=== PATIENT | female | born 1950 | race Caucasian/White ===

== ENCOUNTER → 2017-04-15 14:27 | Outpatient (CLI) | payer MEDICARE, SELFPAY ==
[2017-04-15 16:38] LABS: BNP,B-Type NATRIURETIC PEPTIDE 27.7 pg/mL (0-100)
== END ==
PROVIDERS: Family Provider Internal Medicine; PCP Internal Medicine; Visit Provider Internal Medicine Critical Care Medicine
DX: R06.00 Dyspnea, unspecified (principal); R06.02 Shortness of breath
CPT/HCPCS: 36415; 83880

== ENCOUNTER → 2017-05-15 12:50 | Outpatient (CLI) | payer MEDICARE, SELFPAY ==
--- NOTE | 2017-05-15 14:00 | ECHOCS_ITS ---
Reason For Study: DYSPNEA Procedure This was a 2D Doppler, Color Flow transthoracic echocardiogram. The exam was of fair technical quality due to body habitus. Exam performed in department. Left Ventricle Normal size and thickness. The estimated ejection fraction is 65 %. Stage 1 diastolic dysfunction. No regional wall motion abnormalities noted. Right Ventricle Normal size and thickness. Normal systolic function. Atria Normal left atrium. Normal right atrium. Normal atrial septum. Mitral Valve The mitral valve is structurally normal. No prolapse or stenosis seen. Trivial mitral valve insufficiency. Tricuspid Valve Normal tricuspid valve. Trivial tricuspid valve insufficiency. Right ventricular systolic pressure estimated to be 45 mmHg. Mild pulmonary hypertension. Aortic Valve Normal aortic valve. Trisinus/trileaflet aortic valve. Pulmonic Valve Normal pulmonic valve. Great Vessels Normal aortic root. Normal arch. Normal inferior vena cava. Inferior vena cava collapse with sniff. Pericardium/Pleural No pericardial effusion. MMode/2D Measurements & Calculations LVIDd: 4.6 cm IVSd: 0.78 cm Ao root diam: 2.5 cm LVIDs: 3.2 cm LVPWd: 0.83 cm LA dimension: 3.9 cm RVDd: 2.4 cm FS: 30.1 % LAV(MOD-bp): 37.9 ml EDV(MOD-sp4): 95.6 ml EDV(MOD-sp2): 86.3 ml LAV(MOD-bp) Indexed: 19.2 ml/m2 ESV(MOD-sp4): 42.0 ml EF(MOD-sp2): 53.6 % LAV(MOD-sp2): 45.1 ml EF(MOD-sp4): 56.1 % LAV(MOD-sp4): 29.9 ml SV(MOD-sp4): 53.6 ml SV(MOD-sp2): 46.3 ml LA A4 area: 12.2 cm2 RA A4 area: 6.7 cm2 Doppler Measurements & Calculations MV E max estuardo: 55.3 cm/sec Ao V2 max: 142.2 cm/sec LV V1 max: 101.3 cm/sec MV A max estuardo: 80.1 cm/sec Ao max P.1 mmHg LV V1 max P.1 mmHg MV E/A: 0.69 PA V2 max: 132.0 cm/sec TR max estuardo: 307.2 cm/sec TR max P.8 mmHg Interpretation Summary The estimated ejection fraction is 65 %. Stage 1 diastolic dysfunction. Trivial mitral valve insufficiency. Trivial tricuspid valve insufficiency. Right ventricular systolic pressure estimated to be 45 mmHg. Mild pulmonary hypertension. Compared to echo report dated 01/26/2014, no appreciable changes noted. Ordering Physician: Kareem Mcgregor Referring Physician: ALVARO WEBB Performed By: Ila Amezquita, RDCS, RVT
--- NOTE | 2017-05-16 13:24 | PFT ---
INTRODUCTION: The patient is a 67-year-old female currently under the care of Dr. Mcgregor the presents for pulmonary function testing secondary to a diagnosis of shortness of breath. Respiratory therapy reports good patient effort and reports no other concerns. Bronchodilators were used during testing. INTERPRETATION: Forced expiration spirometry demonstrates the presence of a mild large airways obstructive ventilatory defect. There was no significant response to aerosolized bronchodilators, based upon strict ATS criteria. Spirogram is or of good quality and do not plateau indicating slow emptying of the lungs. Body plethysmography was performed and reveals lung volumes to be within normal limits. Diffusing capacity by single breath CO is severely reduced at 32% of predicted. When compared to previous pulmonary function studies dated September 2015 there has been a 9% reduction in the patient's DLCO. IMPRESSION: These pulmonary function studies demonstrate the presence of any reversible mild large airways obstructive ventilatory defect with an associated disproportionate reduction in diffusing capacity. There has been a 9% reduction in the patient's DLCO since PFTs were last completed in 2015.
== END ==
PROVIDERS: Family Provider Internal Medicine; PCP Internal Medicine; Visit Provider Internal Medicine Critical Care Medicine
DX: R06.00 Dyspnea, unspecified (principal); R06.02 Shortness of breath
CPT/HCPCS: 93306; 94060; 94726; 94729

== ENCOUNTER → 2017-05-17 04:00 | Outpatient (REF) | payer MEDICARE, SELFPAY | LOC: OLS.WHLTSB 04:00 | PROVIDERS: Visit Provider Internal Medicine | DX: R30.9 Painful micturition, unspecified (principal) | CPT/HCPCS: 87077; 87086; 87088; 87186 ==

== ENCOUNTER → 2017-06-03 07:50 | Outpatient (REF) | payer MEDICARE, SELFPAY ==
[2017-06-04 08:03] LABS: Color, Urine Yellow (Yellow); Glucose, Dipstick Normal (Normal); Ketone-Dipstick Negative (Negative); Leukocyte Esterase-Dipstick Negative /ul (Negative); Nitrite-Dipstick Negative (Negative); Occult Blood-Urine Negative /ul (Negative); Protein-Dipstick Negative (Negative); Urine Bilirubin Dipstick Negative (Negative); Urine Clarity Clear (Clear); Urine Urobilinogen Normal (Normal); Urine pH 6.5 (5.0 - 8.0)
== END ==
LOC: OLS.WHLTSB 07:50
PROVIDERS: Visit Provider Internal Medicine
DX: Z09 Encounter for follow-up examination after completed treatment for conditions other than malignant neoplasm (principal)
CPT/HCPCS: 81002; 87077; 87086; 87088; 87186

== ENCOUNTER → 2017-08-01 20:00 | Outpatient (REF) | payer MEDICARE, SELFPAY | LOC: OLS.WHLTSB 20:00 | PROVIDERS: Visit Provider Internal Medicine | DX: Z12.11 Encounter for screening for malignant neoplasm of colon (principal) | CPT/HCPCS: 82274 ==

== ENCOUNTER → 2017-08-05 05:00 | Outpatient (REF) | payer MEDICARE, SELFPAY ==
[2017-08-05 09:42] LABS: Hematocrit 44.7 % (37-47); Hemoglobin 14.6 g/dl (12.0-15.0); Mean Corp Hgb Conc 32.7 g/gl (32-36); Mean Corpuscular Hgb 29.7 pg (27.0-32.0); Mean Corpuscular Volume 90.9 fL (81-99); Mean Platelet Vol. 10.5 fl (6.2-12.0); Platelet Count 196 K/mm3 (150-450); RBC Distribution Width SD 46.3 fl (35.1-43.9); Red Blood Count 4.92 M/mm3 (4.2-5.4); White Blood Count 3.4 K/mm3 (4.4-11.0)
[2017-08-05 09:45] LABS: Scan Indicated on CBC? Y/N NO
[2017-08-05 10:01] LABS: Anion Gap 8 (5-15); BUN 11 mg/dL (7-18); BUN/Creat Ratio 11.4 RATIO (10-20); Chloride 104 mmol/L (98-107); Cholesterol 152 mg/dL (200); Creatinine, Serum 0.96 mg/dL (0.55-1.02); EST Glomerular Filtration Rate 62 mL/min (>60); Est Glom Filt Rate - Afr Amer 74 mL/min (>60); Glucose 136 mg/dL (74-106); High Density Lipoprotein 34 mg/dL; Sodium Level 140 mmol/L (136-145); Triglycerides 159 mg/dL; Very Low Density Lipoprotein 32 mg/dL (5-40)
[2017-08-05 10:05] LABS: Hemoglobin A1c 6.5 % (4.2-6.3)
[2017-08-06 04:12] LABS: Hepatitis C Ab <0.1 s/co ratio (0.0-0.9)
== END ==
LOC: OLS.WHLTSB 05:00
PROVIDERS: Visit Provider Internal Medicine
DX: I10 Essential (primary) hypertension (principal); E78.5 Hyperlipidemia, unspecified; N39.0 Urinary tract infection, site not specified; Z79.899 Other long term (current) drug therapy
CPT/HCPCS: 36415; 80048; 80061; 83036; 85027; 86803; 86804

== ENCOUNTER → 2017-08-05 18:00 | Outpatient (REF) | payer MEDICARE, SELFPAY | LOC: OLS.WHLTSB 18:00 | PROVIDERS: Visit Provider Internal Medicine | DX: N39.0 Urinary tract infection, site not specified (principal) | CPT/HCPCS: 87086 ==

== ENCOUNTER → 2017-10-10 13:33 | Outpatient (CLI) | payer MEDICARE, SELFPAY ==
--- NOTE | 2017-10-10 13:37 | BI_ITS ---
MAMMOGRAPHY - BILATERAL SCREENING 3-D ZOFIA SYNTHESIS REASON FOR EXAM: Female, 67 years old. Bilateral Screening 3-D tomosynthesis PERTINENT HISTORY: No significant family history. TECHNIQUE: 2-D mammograms and 3-D Zofia synthesis of the breast (s) were performed. CAD was performed. COMPARISON: 09/10/2016 FINDINGS: The breast composition is almost entirely fat. Scattered benign calcifications are seen. No dense spiculated masses or suspicious microcalcifications are identified. No architectural distortion is identified. There is no skin thickening or retraction. There has been no significant change since the prior study. BI/SCREENING MAMM (CAD), BILAT IMPRESSION: No mammographic signs of malignancy. Routine yearly mammograms recommended. ASSESSMENT CATEGORY: BIRADS Category 1: Negative. A letter regarding these results will be sent to the patient by the facility within 30 days. FOLLOW UP RECOMMENDATION: Yearly follow up mammogram recommended. (A) Approximately 10% of breast cancers are not detected by mammography. A normal mammogram should not delay biopsy of a clinically suspicious abnormality. Electronically Signed: Henry Floyd MD at 7:46 EDT , Service support ,
--- NOTE | 2017-10-10 14:20 | BD_ITS ---
STUDY: DUAL ENERGY X-RAY ABSORPTIOMETRY / DXA REASON FOR EXAM: Female, 67 years old. Postmenopausal screening TECHNIQUE: Bone Mineral Density (BMD) measurements of lumbar spine and bilateral hips were obtained. COMPARISON: None. FINDINGS: Lumbar Spine (L1-L4): g/cm2 (1.078) / T-score (-0.9) / Z-score (0.8) Findings are suggestive of normal bone density with a low fracture risk. Left Femur Total: g/cm2 (0.919) / T-score (-0.7) / Z-score (0.6) Left Femoral Neck: g/cm2 (0.788) / T-score (-1.8) / Z-score (-0.3) Right Femur Total: g/cm2 (0.929) / T-score (-0.6) / Z-score (0.7) Right Femoral Neck: g/cm2 (0.777) / T-score (-1.9) / Z-score (-0.3) BD/Dexa Bone Density Study IMPRESSION: The patient is considered normal as outlined below according to World Gonz[employer] Organization (WHO) criteria with a low fracture risk. Reference Information: The T-score is the number of standard deviations above or below the standard which is normal for young adults at their peak bone mineral density. The World Health Organization (WHO) interprets the T-scores as follows: Above -1 Normal bone density Between -1 and -2.5 Osteopenia Equal to / or below -2.5 Osteoporosis As a practical clinical guideline, osteopenia may be graded as follows: Mild -1 through -1.5 Moderate -1.6 through -2.0 Severe -2.1 through -2.4 The Z-score is the number of standard deviations above or below age-matched controls. A Z-score of less than -1.5 would be considered abnormal. References: 1. NIH Osteoporosis and Related Bone Diseases http://www.osteo.org 2. International Society for Clinical Densitometry http://www.iscd.org 3. National Osteoporosis Foundation http://www.nof.org Electronically Signed: Henry Floyd MD at 9:30 EDT , Service support ,
== END ==
PROVIDERS: Family Provider Internal Medicine; PCP Internal Medicine; Visit Provider Obstetrics & Gynecology
DX: Z12.31 Encounter for screening mammogram for malignant neoplasm of breast (principal); Z78.0 Asymptomatic menopausal state; R89.1 Abnormal level of hormones in specimens from other organs, systems and tissues
CPT/HCPCS: 77063; 77067; 77080

== ENCOUNTER → 2018-07-01 10:36 | Outpatient (CLI) | payer MEDICARE, SELFPAY ==
[2018-04-30 12:57] VITALS: BMI 45.8
[2018-07-01 13:11] VITALS: PULSE 104; PULSE 105; PULSE 106; PULSE 108; PULSE 109; PULSE 111; PULSE 79; PULSE 93; O2SAT 91; O2SAT 92; O2SAT 93; O2SAT 94
--- NOTE | 2018-07-01 13:15 | CPS ---
Mrs Salas started to walk the stopped to rest at 30 sec until 45 secs then again at 1 min to 2 mins then again at 230 to 245 then again at 250 to 3 mins again at 330 to 340 then again at 430 to 440 and then sat down at 5 mins to 530 and then finished walking till 6 mins.
--- NOTE | 2018-07-01 16:14 | PCM.PSN.6M ---
PSN 6 Minute Walk Test - 6 Minute Walk Test 6 Minute Walk Test: 6 Minute Walk Test PSN:6-Minute Walk Test Start: 07/01/18 11:11 Freq: Status: Active Protocol: RESP.6MINW Document 07/01/18 13:11 FR (Rec: 07/01/18 13:19 FR [id number]) 6 Minute Walk Test Date Performed 07/01/18 Time Performed 11:00 Height 5 ft 4 in Weight: 93.44 kg Weight in Pounds 206.[address]: Noy Springer Assistive device used: None Pre-test Oxygen Delivery Method Room Air Pulse Ox (%) 94 Pulse Rate (60-100 beats/min) 79 Dyspnea Denia Scale (0-10) 0 Exertion Denia Scale (6-20) 6 1st minute Oxygen Delivery Method Room Air Pulse Ox (%) 92 Pulse Rate (60-100 beats/min) 105 H Number of Rests Taken 1 2nd minute Oxygen Delivery Method Room Air Pulse Ox (%) 91 Pulse Rate (60-100 beats/min) 104 H Number of Rests Taken 2 Reported Symptoms Increased Work of Breathing 3rd minute Oxygen Delivery Method Room Air Pulse Ox (%) 93 Pulse Rate (60-100 beats/min) 106 H Number of Rests Taken 1 4th minute Oxygen Delivery Method Room Air Pulse Ox (%) 92 Pulse Rate (60-100 beats/min) 108 H Number of Rests Taken 1 5th minute Oxygen Delivery Method Room Air Pulse Ox (%) 93 Pulse Rate (60-100 beats/min) 111 H Number of Rests Taken 1 Reported Symptoms Increased Work of Breathing 6th minute Oxygen Delivery Method Room Air Pulse Ox (%) 92 Pulse Rate (60-100 beats/min) 109 H Dyspnea Denia Scale (0-10) 10 Exertion Denia Scale (6-20) 20 Post-test Oxygen Delivery Method Room Air Pulse Ox (%) 92 Pulse Rate (60-100 beats/min) 93 Full Laps Walked 2 Partial Lap, Number of Tiles Walked 13 Total Distance Walked (ft) 131 07/01/18 13:15 Cardiopulmonary Services by Fernanda Brand Mrs Salas started to walk the stopped to rest at 30 sec until 45 secs then again at 1 min to 2 mins then again at 230 to 245 then again at 250 to 3 mins again at 330 to 340 then again at 430 to 440 and then sat down at 5 mins to 530 and then finished walking till 6 mins. Initialized on 07/01/18 13:15 - END OF NOTE - Interpretation Interpretation: The patient was able to ambulate only 131 feet over the course of 6 minutes on room air with no assistive devices or breaks. The patient did have significant desaturation as low as 91% and a peak heart rate of 111 bpm. These findings are consistent with a respiratory limitation exercise tolerance. - Recommendations Recommendations: No supplemental oxygen is indicated by this test. However, sensitivity is severely limited given minimal distance traveled.
== END ==
PROVIDERS: Family Provider Internal Medicine; PCP Internal Medicine; Referring Provider Nurse Practitioner Acute Care; Visit Provider Nurse Practitioner Acute Care
DX: J44.9 Chronic obstructive pulmonary disease, unspecified (principal)
CPT/HCPCS: 94618

== ENCOUNTER → 2018-07-15 12:42 | Outpatient (CLI) | payer MEDICARE, SELFPAY ==
[2018-04-30 12:57] VITALS: BMI 45.8
--- NOTE | 2018-07-15 14:56 | PFTCOMP ---
COMPLETE PULMONARY FUNCTION TEST INTERPRETATION Brief HPI: Patient is a 68 year old female, currently under the care of myself, who presents to [facility] for complete pulmonary function tests secondary to diagnosis of COPD. Respiratory therapist reports good effort and reproducible results. Interpretation: Forced expiration spirometry shows a mild large airways obstructive ventilatory defect with an FEV1 of 84% predicted. There is no significant bronchodilator response by strict ATS criteria. Spirograms are of good quality and plateau slowly, indicating slowly emptying areas of the lungs. The respiratory flow volume loop shows decreased expiratory flow rates at all lung volumes consistent with airway obstruction. Lung volumes by body plethysmography show a normal total lung capacity at 4.28 L, 92% predicted. All other lung volumes are within normal limits. Diffusion capacity by carbon monoxide is decreased at 42% predicted. The airway resistance is normal. Compared to previous pulmonary function tests from 05/15/2017, there is been a significant improvement in DLCO by 27%. Impression: Irreversible mild large airways obstructive ventilatory defect with a reduction diffusion capacity that is out of proportion to obstruction. There has been some improvement compared to previous.
== END ==
PROVIDERS: Family Provider Internal Medicine; PCP Internal Medicine; Referring Provider Nurse Practitioner Acute Care; Visit Provider Nurse Practitioner Acute Care
DX: J44.9 Chronic obstructive pulmonary disease, unspecified (principal)
CPT/HCPCS: 94060; 94726; 94729

== ENCOUNTER → 2018-07-18 13:40 | Outpatient (CLI) | payer MEDICARE, SELFPAY ==
[2018-07-18 12:42] VITALS: BMI 45.8
[2018-07-18 15:11] LABS: BNP,B-Type NATRIURETIC PEPTIDE 16.4 pg/mL (0-100)
[2018-07-18 15:30] LABS: Anion Gap 11 (5-15); BUN 12 mg/dL (7-18); BUN/Creat Ratio 10.7 RATIO (10-20); Calcium,Total 9.2 mg/dL (8.5-10.1); Chloride 100 mmol/L (98-107); Creatinine, Serum 1.12 mg/dL (0.55-1.02); EST Glomerular Filtration Rate 52 mL/min (>60); Est Glom Filt Rate - Afr Amer 62 mL/min (>60); Glucose 493 mg/dL (74-106); Potassium 4.3 mmol/L (3.5-5.1); Sodium Level 132 mmol/L (136-145)
== END ==
PROVIDERS: Family Provider Internal Medicine; PCP Internal Medicine; Referring Provider Nurse Practitioner Acute Care; Visit Provider Nurse Practitioner Acute Care
DX: I27.20 Pulmonary hypertension, unspecified (principal); R06.00 Dyspnea, unspecified
CPT/HCPCS: 36415; 80048; 83880

== ENCOUNTER → 2019-08-21 12:04 | Outpatient (CLI) | payer MEDICARE, MEDICAID, SELFPAY ==
[2019-03-04 06:28] VITALS: BMI 37.9
[2019-08-21 13:27] VITALS: PULSE 100; PULSE 101; PULSE 103; PULSE 104; PULSE 105; PULSE 77; PULSE 79; O2SAT 91; O2SAT 92; O2SAT 93; O2SAT 94
--- NOTE | 2019-08-24 07:43 | PCM.PSN.6M ---
PSN 6 Minute Walk Test - 6 Minute Walk Test 6 Minute Walk Test: 6 Minute Walk Test PSN:6-Minute Walk Test Start: 08/21/19 13:27 Freq: Status: Active Protocol: RESP.6MINW Document 08/21/19 13:27 KATHY (Rec: 08/21/19 13:29 KATHY [id number]) 6 Minute Walk Test Date Performed 08/21/19 Time Performed 12:30 Height 5 ft 1 in Weight: 200 lb Weight in Pounds 200.[address]: Kareem Mcgregor Assistive device used: None Pre-test Oxygen Delivery Method Room Air Pulse Ox (%) 93 Pulse Rate (60-100 beats/min) 79 Dyspnea Denia Scale (0-10) 0.5 Exertion Denia Scale (6-20) 6 1st minute Oxygen Delivery Method Room Air Pulse Ox (%) 93 Pulse Rate (60-100 beats/min) 100 Number of Rests Taken 1 2nd minute Oxygen Delivery Method Room Air Pulse Ox (%) 93 Pulse Rate (60-100 beats/min) 101 H Number of Rests Taken 1 3rd minute Oxygen Delivery Method Room Air Pulse Ox (%) 92 Pulse Rate (60-100 beats/min) 103 H Number of Rests Taken 1 4th minute Oxygen Delivery Method Room Air Pulse Ox (%) 91 Pulse Rate (60-100 beats/min) 105 H Number of Rests Taken 1 5th minute Oxygen Delivery Method Room Air Pulse Ox (%) 92 Pulse Rate (60-100 beats/min) 104 H 6th minute Oxygen Delivery Method Room Air Pulse Ox (%) 91 Pulse Rate (60-100 beats/min) 105 H Dyspnea Denia Scale (0-10) 5 Exertion Denia Scale (6-20) 14 Post-test Oxygen Delivery Method Room Air Pulse Ox (%) 94 Pulse Rate (60-100 beats/min) 77 Full Laps Walked 5 Partial Lap, Number of Tiles Walked 13 Total Distance Walked (ft) 308 - Interpretation Interpretation: The patient ambulated 308 feet over the course of 6 minutes beginning on room air without assistive devices or breaks. Pretesting oxygen saturation was noted to be 93% on room air. With ambulation, the leo oxygen saturation was 91%. Although there was evidence of impaired walk distance, there was no significant exertional oxygen desaturation. - Recommendations Recommendations: There is no indication for the use of supplemental oxygen at this time.
== END ==
PROVIDERS: Family Provider Internal Medicine; PCP Internal Medicine; Referring Provider Internal Medicine Critical Care Medicine; Visit Provider Internal Medicine Critical Care Medicine
DX: I27.20 Pulmonary hypertension, unspecified (principal); E66.01 Morbid (severe) obesity due to excess calories
CPT/HCPCS: 94618

== ENCOUNTER → 2019-11-05 12:19 | Outpatient (CLI) | payer MEDICARE, SELFPAY ==
[2019-09-01 12:43] VITALS: BMI 43.0
--- NOTE | 2019-11-05 12:20 | BI_ITS ---
MAMMOGRAPHY - BILATERAL SCREENING 3-D TOMOSYNTHESIS REASON FOR EXAM: Female, 69 years old. Annual screening mammogram. PERTINENT HISTORY: No significant family history. TECHNIQUE: 2-D mammograms and 3-D Tomosynthesis of the breast (s) were performed. CAD was performed. COMPARISON: 10/10/2017 and 09/10/2016 FINDINGS: The breast composition is almost entirely fat. Scattered benign calcifications are seen. No dense spiculated masses or suspicious microcalcifications are identified. No architectural distortion is identified. There is no skin thickening or retraction. There has been no significant change since the prior study. BI/SCREEN MAMM (CAD) W/ZOFIA BILAT IMPRESSION: No mammographic signs of malignancy. Routine yearly mammograms recommended. ASSESSMENT CATEGORY: BIRADS Category 2: Benign. A letter regarding these results will be sent to the patient by the facility within 30 days. FOLLOW UP RECOMMENDATION: Yearly follow up mammogram recommended. (A) Approximately 10% of breast cancers are not detected by mammography. A normal mammogram should not delay biopsy of a clinically suspicious abnormality. Electronically Signed: Sean Wilson MD at 17:42 EDT , Service support ,
== END ==
PROVIDERS: PCP Internal Medicine; Referring Provider Nurse Practitioner Women's Health; Visit Provider Nurse Practitioner Women's Health
DX: Z12.31 Encounter for screening mammogram for malignant neoplasm of breast (principal)
CPT/HCPCS: 77063; 77067

== ENCOUNTER 2020-01-22 07:57 | Day surgery (SDC) | payer MEDICARE, MEDICAID, SELFPAY ==
[2020-01-05 13:57] VITALS: BMI 42.9
[2020-01-22 08:16] VITALS: BP 150/83; PULSE 76; RESP 16; TEMP 36.2; O2SAT 93; BMI 42.3
[2020-01-22] MEDS: Lactated Ringers 1,000 ML 100 ML IV (08:30)
[2020-01-22 09:16] LABS: Bedside Glucose 129 mg/dL (70-110)
--- NOTE | 2020-01-22 09:26 | PCM.HP.BLA ---
Problem List (1) Screening for malignant neoplasm of intestine Status: Acute History and Physical Date of Admission: 01/22/20 Intake Visit Reasons: C-Scope Chief Complaint: c-scope consult Clip On Sunglasses Assembler Required: No Is patient in pain?: No Allergies adhesive tape Allergy (Mild, Verified 01/05/20 13:58) Rash Iodinated Contrast Media [Iodinated Contrast Media - IV Dye] Allergy (Verified 01/05/20 13:58) Hives latex Allergy (Verified 01/05/20 13:58) Itching Sulfa (Sulfonamide Antibiotics) Allergy (Verified 01/05/20 13:58) Hives Medications Atorvastatin Calcium [Lipitor] 10 mg PO DAILY 03/09/15 [History Confirmed 01/05/20] Bupropion HCl [Wellbutrin Sr] 200 mg PO DAILY 03/09/15 [History Confirmed 01/05/20] Losartan Potassium [Cozaar] 50 mg PO DAILY 03/09/15 [History Confirmed 01/05/20] Oxybutynin Chloride [Ditropan Xl] 15 mg PO DAILY 03/09/15 [History Confirmed 01/05/20] Risperidone [Risperdal] 0.25 mg PO TID 03/09/15 [History Confirmed 01/05/20] Omeprazole [Prilosec] 20 mg PO DAILY 10/27/15 [History Confirmed 01/05/20] chlorhexidine gluconate 0.12 % mouthwash 15 ml BUCCAL BID 04/05/17 [History Confirmed 01/05/20] fluticasone propionate 50 mcg/actuation nasal spray,suspension 2 spray INTRANASAL QDAY PRN 04/05/17 [History Confirmed 01/05/20] umeclidinium 62.5 mcg-vilanterol 25 mcg/actuation powdr for inhalation 1 inh INHALATION Q24H #60 ea 04/30/18 [Rx Confirmed 01/05/20] acetaminophen 325 mg tablet 325 mg PO Q6H PRN 08/12/18 [History Confirmed 01/05/20] albuterol sulfate 90 mcg/actuation aerosol inhaler 1 puff INHALATION Q6H PRN 08/12/18 [History Confirmed 01/05/20] bisacodyl 10 mg rectal suppository 10 mg RC DAILY PRN 08/12/18 [History Confirmed 01/05/20] calcium carbonate 200 mg calcium (500 mg) chewable tablet 200 mg PO BID tab 08/12/18 [History Confirmed 01/05/20] ondansetron HCl 4 mg tablet 4 mg PO BID-TID PRN 08/12/18 [History Confirmed 01/05/20] polyethylene glycol 3350 17 gram/dose oral powder 17 g PO DAILY 08/12/18 [History Confirmed 01/05/20] terconazole 0.4 % vaginal cream 1 appful VAGINAL QHS 08/12/18 [History Confirmed 01/05/20] triamcinolone acetonide 0.5 % topical cream 1 applic TOPICAL BID #15 g 08/12/18 [Rx Confirmed 01/05/20] calcium carbonate 200 mg calcium (500 mg) chewable tablet 200 mg PO BID 11/05/19 [History Confirmed 01/05/20] clotrimazole-betamethasone 1 %-0.05 % topical cream 1 applic TOPICAL BID 14 Days #45 g 11/05/19 [Rx Confirmed 01/05/20] diphenhydramine HCl 12.5 mg/5 mL oral elixir 12.5 mg PO QHS PRN 11/05/19 [History Confirmed 01/05/20] loperamide 2 mg capsule 2 mg PO Q6H PRN 11/05/19 [History Confirmed 01/05/20] melatonin 10 mg capsule 10 mg PO HS PRN 11/05/19 [History Confirmed 01/05/20] sodium chloride 0.65 % nasal spray aerosol 1 spray INTRANASAL ONCE 11/05/19 [History Confirmed 01/05/20] cetirizine 10 mg tablet 10 mg PO DAILY PRN tab 01/05/20 [History Confirmed 01/05/20] clonazepam 2 mg tablet 2 mg PO QHS tab 01/05/20 [History Confirmed 01/05/20] metformin 500 mg tablet 1,000 mg PO BID tab 01/05/20 [History Confirmed 01/05/20] sennosides 8.6 mg-docusate sodium 50 mg tablet 1 tab-cap PO DAILY tab 01/05/20 [History] [facility] Medical History (Updated 01/05/20 @ 14:[address] Paul Valdez MD) Screening for malignant neoplasm of intestine (Acute) Mast esophagus (Chronic) Pulmonary hypertension (Chronic) Hypoxemia (Acute) ANNIE (obstructive sleep apnea) (Chronic) Obesity (Chronic) Dyspnea (Acute) SOB (shortness of breath) (Chronic) Mitral stenosis with insufficiency (Chronic) Tricuspid valve disorder (Chronic) Sinusitis (Acute) Depression (Chronic) Diverticulitis (Acute) HTN (hypertension) (Chronic) COPD (chronic obstructive pulmonary disease) (Chronic) Surgical History (Updated 01/05/20 @ 13:57 by Nadia Wu) History of left heart catheterization (Resolved) History of cholecystectomy (Acute) History of lumbar laminectomy (Acute) Family History Father Diabetes Mother Heart disease Diabetes Social History (Updated 01/05/20 @ 14:[address] Paul Valdez MD) Smoking Status: Former smoker how long ago did patient quit smokin second hand exposure: Yes alcohol intake: never substance use type: does not use HPI HPI HPI: DICKSON DONALD, is a 69 F who presents to the office today for surgical consultation regarding a screening colonoscopy. The patient has short-term memory deficit. She is not aware that she has had a previous colonoscopy. We have evidence that Dr. Sarbjit Jo performed an upper endoscopy for her November 2000. We do not have evidence of a previous colonoscopy. She has not noticed any bright red blood per rectum or melena. No abdominal pain. She does live in a detention because of the memory deficit. There is been no change of weight. Body habitus is large with a body weight of 242 pounds and a BMI of 42.9. She does take omeprazole 20 mg daily. I do not see that she is on any anticoagulants. She does not recall any family history of colon cancer. There is evidence at the [facility] October 27, [address] of the abdomen pelvis suggesting small hiatal hernia wall thickening of the sigmoid colon consistent with diverticulitis. There is some report of some chronic constipation issues HPI HPI HPI: DICKSON DONALD, is a 69 F who presents to the office today for ROS General General: Yes weight change and fatigue; no appetite, colon cancer, breast cancer or weakness HEENT HEENT: No difficulty swallowing, eye injury, eye surgery, swollen glands or hoarseness Endo Endocrine: Yes diabetes mellitus; no thyroid disease, thyroid cancer, Hair loss, heat intolerance or cold intolerance Skin Skin: No rash or changing moles Breast Breast: No left breast lump, right breast lump, nipple discharge, breast pain, abnormal mammogram, abnormal US or breast enlargement Musc Musculoskeletal: No back problems, arthritis, rheumatoid arthritis, gout or joint pain Cardio Cardiovascular: No murmur, pacemaker, heart disease, atrial fibrillation, high blood pressure, heart attack, heart stent, palpitations, shortness of breat with exertion or chest pain Psych Psychiatric: Yes anxiety; no depression or hearing voices Resp Respiratory: Yes shortness of breath, No sleep apnea, No cough, Yes COPD, No asthma, No emphysema, No wheezing Gastro Gastrointestinal: No abdominal pain, Yes nausea or vomiting, No diarrhea, Yes constipation, No blood in stool, Yes acid reflux, No hemorrhoids, No ulcers, No gallbladder problem, No black,tarry stools Ganga Hematologic: No blood thinners, No blood disorders, No bleeding, No anemia, No blood clots Neuro Neurologic: No system reviewed and no additional complaints, except as docu, No as per HPI, No abnormal walking, No abnormal hearing, No abnormal movements, No abnormal speech, No behavioral changes, No burning sensations, No confusion, No seizure-like activity, No unsteadiness, No dizziness, No localized weakness, No frequent falls, No headache(s), No lack of coordination, No loss of vision, No memory loss, No numbness, No other visual disturbances, No radiating pain, No restless legs, No sensory deficit, No fainting, No tingling, No tremor(s), No weakness, No other Exam Const General: cooperative, no acute distress Nutritional Appearance: obese morbidly obese Orientation: alert, awake HENIA Head: normal to inspection Chest Breast Palpation: No nipple discharge Resp Effort & Inspection: normal respiratory effort Auscultation: clear to auscultation bilaterally Cardio Rate: regular rate Rhythm: regular rhythm Heart Sounds: no murmurs GI Palpation: soft, no hepatosplenomegaly Auscultation: normal bowel sounds Neuro General: alert, awake Extrem General: no calf tenderness Psych Affect: normal affect Assessment & Plan Problems 1. Screening for malignant neoplasm of intestine Z12.10 Plan The patient's short-term memory deficit provides some difficulty in obtaining history. The detention referral clearly suggest this is for screening colonoscopy. I discussed with the patient the technique, benefit, risk, alternatives. She has had an opportunity to ask and have questions answered. We will schedule her for screening colonoscopy. I anticipate utilizing an adult scope. I anticipate utilizing monitored anesthesia care. We will schedule procedure at her discretion Copy: Dr. Allison Valdez M.D., F.A.C.S.. Coding Level of Care Code 08722 Diagnoses Screening for malignant neoplasm of intestine Z12.10 I have re-examined the patient. There are no clinical changes since date of exam. Procedure Criteria Procedure Type: Elective COVID Risk Discussion: The surgeon/proceduralist and patient have discussed in detail the risk of exposure to and/or potential harm posed by the COVID-19 virus with having a surgery/procedure at this time versus the risk of delaying the surgery/procedure. It is not possible to know either the risk of delaying the surgery or procedure or chance of getting an infection with perfect accuracy, but a joint decision was made between the patient and the surgeon/proceduralist to proceed at this time with the scheduled surgery/procedure as indicated on the consent form.
--- NOTE | 2020-01-22 09:47 | OP.CCLET_ITS ---
01/22/2020 Allison Varela [address] [place] [address] Re : Colonoscopy procedure for Nataliia Salas Dear Dr. Varela This procedure was performed on Wednesday, January 22, 2020. My impressions and recommendations are as follows: Impressions : - The procedure was aborted. - Hemorrhoids found on perianal exam. - Stool in the rectum. - No specimens collected. Recommendations : - Discharge patient to home. - Resume previous diet. - Continue present medications. - Repeat colonoscopy in 1 week for screening purposes. My findings are described in the full procedure note, which is enclosed. If I can be of further assistance, please feel free to contact me at Doctor phone number(s): Work: . Sincerely, Paul Valdez MD 01/22/2020 9:46:59 AM This report has been signed electronically.
--- NOTE | 2020-01-22 09:47 | OP.COLON_ITS ---
Patient Name: Nataliia Salas Procedure Date: 01/22/2020 9:30 AM Date of : 1950 Age: 69 Procedure: Colonoscopy Indications: Screening for colorectal malignant neoplasm Providers: Paul Valdez MD Referring MD: Allison Varela Medicines: See the Anesthesia note for documentation of the administered medications Patient Profile: Last Colonoscopy: none. The patient's first colonoscopy is today. Complications: No immediate complications. Procedure: Pre-Anesthesia Assessment: - Prior to the procedure, a History and Physical was performed, and patient medications and allergies were reviewed. The patient's tolerance of previous anesthesia was also reviewed. The risks and benefits of the procedure and the sedation options and risks were discussed with the patient. All questions were answered, and informed consent was obtained. Prior Anticoagulants: The patient has taken no previous anticoagulant or antiplatelet agents. ASA Grade Assessment: III - A patient with severe systemic disease. After reviewing the risks and benefits, the patient was deemed in satisfactory condition to undergo the procedure. After I obtained informed consent, the scope was passed under direct vision. Throughout the procedure, the patient's blood pressure, pulse, and oxygen saturations were monitored continuously. The adult colonoscope was introduced through the anus with the intention of advancing to the surgical stoma. The scope was advanced to the rectum before the procedure was aborted. Medications were given. The colonoscopy was aborted. Scope In: 9:40:27 AM Scope Out: 9:41:54 AM Total Procedure Duration Time 0 hours 1 minute 27 seconds Findings: Hemorrhoids were found on perianal exam. A large amount of stool was found in the rectum, precluding visualization. Impression: - The procedure was aborted. - Hemorrhoids found on perianal exam. - Stool in the rectum. - No specimens collected. Recommendation: - Discharge patient to home. - Resume previous diet. - Continue present medications. - Repeat colonoscopy in 1 week for screening purposes. Procedure Code(s): --- Professional --- G0121, 53, Colorectal cancer screening; colonoscopy on individual not meeting criteria for high risk CPT copyright 2017 [employer]. All rights reserved. The codes documented in this report are preliminary and upon radial drill operator for plastic review may be revised to meet current compliance requirements. Paul Valdez MD 01/22/2020 9:46:59 AM This report has been signed electronically. Number of Addenda: 0 Note Initiated On: 01/22/2020 9:30 AM
[2020-01-22 09:50] VITALS: BP 112/53; BP 150/83; PULSE 70; RESP 18; TEMP 36.7; O2SAT 92
[2020-01-22 09:55] VITALS: BP 117/52; BP 150/83; PULSE 69; RESP 12; O2SAT 94
[2020-01-22 10:00] VITALS: BP 117/64; BP 150/83; PULSE 67; RESP 12; O2SAT 93
[2020-01-22 10:27] VITALS: BP 140/78; BP 150/83; PULSE 64; RESP 18; TEMP 36.7; O2SAT 94
[2020-01-22 10:57] VITALS: BP 150/83
== END 2020-01-22 10:57 | disposition home or self-care (01) ==
LOC: EN 07:59 → AC 08:00
PROVIDERS: PCP Internal Medicine; Referring Provider Internal Medicine; Visit Provider Surgery
PROC: 0DJD8ZZ Inspection of Lower Intestinal Tract, Via Natural or Artificial Opening Endoscopic (ICD-10-PCS; CPT 45378; principal; 2020-01-22 08:55)
DX: Z12.11 Encounter for screening for malignant neoplasm of colon (principal); Z53.8 Procedure and treatment not carried out for other reasons; Z20.828 Contact with and (suspected) exposure to other viral communicable diseases; K64.9 Unspecified hemorrhoids; K59.09 Other constipation; J44.9 Chronic obstructive pulmonary disease, unspecified; E11.9 Type 2 diabetes mellitus without complications; I10 Essential (primary) hypertension; E78.00 Pure hypercholesterolemia, unspecified; G47.33 Obstructive sleep apnea (adult) (pediatric); E66.9 Obesity, unspecified; Z68.41 Body mass index [BMI] 40.0-44.9, adult; F32.9 Major depressive disorder, single episode, unspecified; F41.9 Anxiety disorder, unspecified; Z78.0 Asymptomatic menopausal state; Z79.84 Long term (current) use of oral hypoglycemic drugs; Z87.891 Personal history of nicotine dependence
CPT/HCPCS: G0104; 82962; 87426; C9803; J7120; J2405

== ENCOUNTER 2020-01-29 08:32 | Day surgery (SDC) | payer MEDICARE, MEDICAID, SELFPAY ==
--- NOTE | 2020-01-29 08:45 | PCM.HP.BLA ---
Problem List (1) Screening for malignant neoplasm of intestine Status: Acute History and Physical Date of Admission: 01/29/20 Intake Visit Reasons: C-Scope Chief Complaint: c-scope consult Intensive Care Unit Nurse Required: No Is patient in pain?: No Allergies adhesive tape Allergy (Mild, Verified 01/05/20 13:58) Rash Iodinated Contrast Media [Iodinated Contrast Media - IV Dye] Allergy (Verified 01/05/20 13:58) Hives latex Allergy (Verified 01/05/20 13:58) Itching Sulfa (Sulfonamide Antibiotics) Allergy (Verified 01/05/20 13:58) Hives Medications Atorvastatin Calcium [Lipitor] 10 mg PO DAILY 03/09/15 [History Confirmed 01/05/20] Bupropion HCl [Wellbutrin Sr] 200 mg PO DAILY 03/09/15 [History Confirmed 01/05/20] Losartan Potassium [Cozaar] 50 mg PO DAILY 03/09/15 [History Confirmed 01/05/20] Oxybutynin Chloride [Ditropan Xl] 15 mg PO DAILY 03/09/15 [History Confirmed 01/05/20] Risperidone [Risperdal] 0.25 mg PO TID 03/09/15 [History Confirmed 01/05/20] Omeprazole [Prilosec] 20 mg PO DAILY 10/27/15 [History Confirmed 01/05/20] chlorhexidine gluconate 0.12 % mouthwash 15 ml BUCCAL BID 04/05/17 [History Confirmed 01/05/20] fluticasone propionate 50 mcg/actuation nasal spray,suspension 2 spray INTRANASAL QDAY PRN 04/05/17 [History Confirmed 01/05/20] umeclidinium 62.5 mcg-vilanterol 25 mcg/actuation powdr for inhalation 1 inh INHALATION Q24H #60 ea 04/30/18 [Rx Confirmed 01/05/20] acetaminophen 325 mg tablet 325 mg PO Q6H PRN 08/12/18 [History Confirmed 01/05/20] albuterol sulfate 90 mcg/actuation aerosol inhaler 1 puff INHALATION Q6H PRN 08/12/18 [History Confirmed 01/05/20] bisacodyl 10 mg rectal suppository 10 mg RC DAILY PRN 08/12/18 [History Confirmed 01/05/20] calcium carbonate 200 mg calcium (500 mg) chewable tablet 200 mg PO BID tab 08/12/18 [History Confirmed 01/05/20] ondansetron HCl 4 mg tablet 4 mg PO BID-TID PRN 08/12/18 [History Confirmed 01/05/20] polyethylene glycol 3350 17 gram/dose oral powder 17 g PO DAILY 08/12/18 [History Confirmed 01/05/20] terconazole 0.4 % vaginal cream 1 appful VAGINAL QHS 08/12/18 [History Confirmed 01/05/20] triamcinolone acetonide 0.5 % topical cream 1 applic TOPICAL BID #15 g 08/12/18 [Rx Confirmed 01/05/20] calcium carbonate 200 mg calcium (500 mg) chewable tablet 200 mg PO BID 11/05/19 [History Confirmed 01/05/20] clotrimazole-betamethasone 1 %-0.05 % topical cream 1 applic TOPICAL BID 14 Days #45 g 11/05/19 [Rx Confirmed 01/05/20] diphenhydramine HCl 12.5 mg/5 mL oral elixir 12.5 mg PO QHS PRN 11/05/19 [History Confirmed 01/05/20] loperamide 2 mg capsule 2 mg PO Q6H PRN 11/05/19 [History Confirmed 01/05/20] melatonin 10 mg capsule 10 mg PO HS PRN 11/05/19 [History Confirmed 01/05/20] sodium chloride 0.65 % nasal spray aerosol 1 spray INTRANASAL ONCE 11/05/19 [History Confirmed 01/05/20] cetirizine 10 mg tablet 10 mg PO DAILY PRN tab 01/05/20 [History Confirmed 01/05/20] clonazepam 2 mg tablet 2 mg PO QHS tab 01/05/20 [History Confirmed 01/05/20] metformin 500 mg tablet 1,000 mg PO BID tab 01/05/20 [History Confirmed 01/05/20] sennosides 8.6 mg-docusate sodium 50 mg tablet 1 tab-cap PO DAILY tab 01/05/20 [History] [facility] Medical History (Updated 01/05/20 @ 14:[address] Paul Valdez MD) Screening for malignant neoplasm of intestine (Acute) Mast esophagus (Chronic) Pulmonary hypertension (Chronic) Hypoxemia (Acute) ANNIE (obstructive sleep apnea) (Chronic) Obesity (Chronic) Dyspnea (Acute) SOB (shortness of breath) (Chronic) Mitral stenosis with insufficiency (Chronic) Tricuspid valve disorder (Chronic) Sinusitis (Acute) Depression (Chronic) Diverticulitis (Acute) HTN (hypertension) (Chronic) COPD (chronic obstructive pulmonary disease) (Chronic) Surgical History (Updated 01/05/20 @ 13:57 by Nadia Wu) History of left heart catheterization (Resolved) History of cholecystectomy (Acute) History of lumbar laminectomy (Acute) Family History Father Diabetes Mother Heart disease Diabetes Social History (Updated 01/05/20 @ 14:[address] Paul Valdez MD) Smoking Status: Former smoker how long ago did patient quit smokin second hand exposure: Yes alcohol intake: never substance use type: does not use HPI HPI HPI: DICKSON DONALD, is a 69 F who presents to the office today for surgical consultation regarding a screening colonoscopy. The patient has short-term memory deficit. She is not aware that she has had a previous colonoscopy. We have evidence that Dr. Sarbjit Jo performed an upper endoscopy for her November 2000. We do not have evidence of a previous colonoscopy. She has not noticed any bright red blood per rectum or melena. No abdominal pain. She does live in a long-term because of the memory deficit. There is been no change of weight. Body habitus is large with a body weight of 242 pounds and a BMI of 42.9. She does take omeprazole 20 mg daily. I do not see that she is on any anticoagulants. She does not recall any family history of colon cancer. There is evidence at the [facility] October [facility], [address] of the abdomen pelvis suggesting small hiatal hernia wall thickening of the sigmoid colon consistent with diverticulitis. There is some report of some chronic constipation issues HPI HPI HPI: DICKSON DONALD, is a 69 F who presents to the office today for ROS General General: Yes weight change and fatigue; no appetite, colon cancer, breast cancer or weakness HEENT HEENT: No difficulty swallowing, eye injury, eye surgery, swollen glands or hoarseness Endo Endocrine: Yes diabetes mellitus; no thyroid disease, thyroid cancer, Hair loss, heat intolerance or cold intolerance Skin Skin: No rash or changing moles Breast Breast: No left breast lump, right breast lump, nipple discharge, breast pain, abnormal mammogram, abnormal US or breast enlargement Musc Musculoskeletal: No back problems, arthritis, rheumatoid arthritis, gout or joint pain Cardio Cardiovascular: No murmur, pacemaker, heart disease, atrial fibrillation, high blood pressure, heart attack, heart stent, palpitations, shortness of breat with exertion or chest pain Psych Psychiatric: Yes anxiety; no depression or hearing voices Resp Respiratory: Yes shortness of breath, No sleep apnea, No cough, Yes COPD, No asthma, No emphysema, No wheezing Gastro Gastrointestinal: No abdominal pain, Yes nausea or vomiting, No diarrhea, Yes constipation, No blood in stool, Yes acid reflux, No hemorrhoids, No ulcers, No gallbladder problem, No black,tarry stools Ganga Hematologic: No blood thinners, No blood disorders, No bleeding, No anemia, No blood clots Neuro Neurologic: No system reviewed and no additional complaints, except as docu, No as per HPI, No abnormal walking, No abnormal hearing, No abnormal movements, No abnormal speech, No behavioral changes, No burning sensations, No confusion, No seizure-like activity, No unsteadiness, No dizziness, No localized weakness, No frequent falls, No headache(s), No lack of coordination, No loss of vision, No memory loss, No numbness, No other visual disturbances, No radiating pain, No restless legs, No sensory deficit, No fainting, No tingling, No tremor(s), No weakness, No other Exam Const General: cooperative, no acute distress Nutritional Appearance: obese morbidly obese Orientation: alert, awake HENMS Head: normal to inspection Chest Breast Palpation: No nipple discharge Resp Effort & Inspection: normal respiratory effort Auscultation: clear to auscultation bilaterally Cardio Rate: regular rate Rhythm: regular rhythm Heart Sounds: no murmurs GI Palpation: soft, no hepatosplenomegaly Auscultation: normal bowel sounds Neuro General: alert, awake Extrem General: no calf tenderness Psych Affect: normal affect Assessment & Plan Problems 1. Screening for malignant neoplasm of intestine Z12.10 Plan The patient's short-term memory deficit provides some difficulty in obtaining history. The long-term referral clearly suggest this is for screening colonoscopy. I discussed with the patient the technique, benefit, risk, alternatives. She has had an opportunity to ask and have questions answered. We will schedule her for screening colonoscopy. I anticipate utilizing an adult scope. I anticipate utilizing monitored anesthesia care. We will schedule procedure at her discretion Copy: Dr. Allison Valdez M.D., F.A.C.S.. Patient had a failed bowel prep on January 22, 2020. She had presented at that time for screening colonoscopy. She is redone a bowel prep and represents at this time for planned colonoscopy with possible biopsy or polypectomy is indicated. Paul Valdez M.D., F.A.C.S. Procedure Criteria Procedure Type: Elective COVID Risk Discussion: The surgeon/proceduralist and patient have discussed in detail the risk of exposure to and/or potential harm posed by the COVID-19 virus with having a surgery/procedure at this time versus the risk of delaying the surgery/procedure. It is not possible to know either the risk of delaying the surgery or procedure or chance of getting an infection with perfect accuracy, but a joint decision was made between the patient and the surgeon/proceduralist to proceed at this time with the scheduled surgery/procedure as indicated on the consent form.
[2020-01-29 09:15] VITALS: BP 111/55; PULSE 77; RESP 18; TEMP 36.4; O2SAT 92; BMI 43.0
[2020-01-29] MEDS: Lactated Ringers 1,000 ML 100 ML IV (09:43)
[2020-01-29 09:50] LABS: Bedside Glucose 152 mg/dL (70-110)
[2020-01-29 10:41] VITALS: BP 111/55; BP 135/61; PULSE 82; RESP 16; TEMP 36.1; O2SAT 97
--- NOTE | 2020-01-29 10:41 | OP.COLON_ITS ---
Patient Name: Nataliia Salas Procedure Date: 01/29/2020 9:55 AM Date of : 1950 Age: 70 Procedure: Colonoscopy Indications: Screening for colorectal malignant neoplasm Providers: Paul Valdez MD Referring MD: Allison Varela Medicines: See the Anesthesia note for documentation of the administered medications Patient Profile: Last Colonoscopy: none. The patient's first colonoscopy is today. Complications: No immediate complications. Procedure: Pre-Anesthesia Assessment: - Prior to the procedure, a History and Physical was performed, and patient medications and allergies were reviewed. The patient's tolerance of previous anesthesia was also reviewed. The risks and benefits of the procedure and the sedation options and risks were discussed with the patient. All questions were answered, and informed consent was obtained. Prior Anticoagulants: The patient has taken no previous anticoagulant or antiplatelet agents. ASA Grade Assessment: III - A patient with severe systemic disease. After reviewing the risks and benefits, the patient was deemed in satisfactory condition to undergo the procedure. After I obtained informed consent, the scope was passed under direct vision. Throughout the procedure, the patient's blood pressure, pulse, and oxygen saturations were monitored continuously. The adult colonoscope was introduced through the anus and advanced to the cecum, identified by appendiceal orifice and ileocecal valve. The colonoscopy was performed with moderate difficulty due to multiple diverticula in the colon. The patient tolerated the procedure well. The quality of the bowel preparation was fair. The ileocecal valve was photographed. Scope In: 10:06:53 AM Scope Withdrawal Time 0 hours 6 minutes 7 seconds Scope Out: 10:36:06 AM Total Procedure Duration Time 0 hours 29 minutes 13 seconds Findings: Hemorrhoids were found on perianal exam. Multiple diverticula were found in the sigmoid colon and descending colon. The colon (entire examined portion) was moderately tortuous. Advancing the scope required changing the patient to a supine position and using manual pressure. Impression: - Preparation of the colon was fair. - Hemorrhoids found on perianal exam. - Diverticulosis in the sigmoid colon and in the descending colon. - Tortuous colon. - No specimens collected. Recommendation: - Discharge patient to home. - Resume previous diet. - Continue present medications. - Repeat colonoscopy is not recommended due to current age (66 years or older) for screening purposes. Procedure Code(s): --- Professional --- 97856, Colonoscopy, flexible; diagnostic, including collection of specimen(s) by brushing or washing, when performed (separate procedure) Diagnosis Code(s): --- Professional --- Z12.11, Encounter for screening for malignant neoplasm of colon K64.9, Unspecified hemorrhoids K57.30, Diverticulosis of large intestine without perforation or abscess without bleeding Q43.8, Other specified congenital malformations of intestine CPT copyright 2017 [employer]. All rights reserved. The codes documented in this report are preliminary and upon finance consultant review may be revised to meet current compliance requirements. Paul Valdez MD 01/29/2020 10:40:46 AM This report has been signed electronically. Number of Addenda: 0 Note Initiated On: 01/29/2020 9:55 AM
--- NOTE | 2020-01-29 10:41 | OP.CCLET_ITS ---
01/29/2020 Allison Varela [id number] [place] [address] Re : Colonoscopy procedure for Nataliia Salas Dear Dr. Varela This procedure was performed on Wednesday, January 29, 2020. My impressions and recommendations are as follows: Impressions : - Preparation of the colon was fair. - Hemorrhoids found on perianal exam. - Diverticulosis in the sigmoid colon and in the descending colon. - Tortuous colon. - No specimens collected. Recommendations : - Discharge patient to home. - Resume previous diet. - Continue present medications. - Repeat colonoscopy is not recommended due to current age (66 years or older) for screening purposes. My findings are described in the full procedure note, which is enclosed. If I can be of further assistance, please feel free to contact me at Doctor phone number(s): Work: . Sincerely, Paul Valdez MD 01/29/2020 10:40:46 AM This report has been signed electronically.
[2020-01-29 10:46] VITALS: BP 111/55; BP 134/67; PULSE 74; RESP 16; O2SAT 97
[2020-01-29 10:50] VITALS: BP 111/55; BP 133/69; PULSE 75; RESP 16; O2SAT 96
[2020-01-29 10:56] VITALS: BP 111/55; BP 134/61; PULSE 73; RESP 16; TEMP 36.1; O2SAT 97
== END 2020-01-29 11:25 | disposition home or self-care (01) ==
LOC: EN 08:33 → AC 08:34
PROVIDERS: PCP Internal Medicine; Referring Provider Internal Medicine; Visit Provider Surgery
PROC: 0DJD8ZZ Inspection of Lower Intestinal Tract, Via Natural or Artificial Opening Endoscopic (ICD-10-PCS; CPT 45378; principal; 2020-01-29 10:10)
DX: Z12.11 Encounter for screening for malignant neoplasm of colon (principal); K57.30 Diverticulosis of large intestine without perforation or abscess without bleeding; K64.9 Unspecified hemorrhoids; J44.9 Chronic obstructive pulmonary disease, unspecified; E11.9 Type 2 diabetes mellitus without complications; I10 Essential (primary) hypertension; E78.00 Pure hypercholesterolemia, unspecified; G47.30 Sleep apnea, unspecified; K21.9 Gastro-esophageal reflux disease without esophagitis; F32.9 Major depressive disorder, single episode, unspecified; F41.9 Anxiety disorder, unspecified; E66.01 Morbid (severe) obesity due to excess calories; Z68.41 Body mass index [BMI] 40.0-44.9, adult; Z78.0 Asymptomatic menopausal state; Z79.84 Long term (current) use of oral hypoglycemic drugs; Z79.899 Other long term (current) drug therapy; Z87.891 Personal history of nicotine dependence
CPT/HCPCS: G0121; 82962; J7120

== ENCOUNTER 2020-02-12 07:52 | Inpatient (IN) | payer MEDICARE, MEDICAID, SELFPAY ==
[2020-02-12] VITALS (22 sets, daily range): BP systolic 109–155; BP diastolic 49–70; PULSE 71–128; RESP 18–34; TEMP 36.3–36.5; O2SAT 88–97; BMI 38.7
--- NOTE | 2020-02-12 07:55 | EKG12_ITS ---
Test Reason : SOB Blood Pressure : / mmHG Vent. Rate : 106 BPM Atrial Rate : 106 BPM P-R Int : 120 ms QRS Dur : 094 ms QT Int : 336 ms P-R-T Axes : 078 -14 050 degrees QTc Int : 446 ms Sinus tachycardia Possible Inferior infarct , age undetermined Abnormal ECG Confirmed by MIRNA MORGAN, ERICA ([id number]), health editor TRACEY QUISPE ([id number]) on 02/16/2020 9:07:06 AM Referred By: MANAN Confirmed By:ERICA BRADLEY MD
--- NOTE | 2020-02-12 08:08 | ED.VIS.GEN ---
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 She has sores right and left knee with skin breakdown. She does not complain of much. Her response to almost every question was I do not know . She does endorse shortness of breath. She does endorse neurolyse weakness. Prior similar symptoms: No Recent Illness/Hospitalization: No - Past Medical History (1) Mast esophagus Status: Chronic (2) COPD (chronic obstructive pulmonary disease) Status: Chronic (3) Depression Status: Chronic (4) HTN (hypertension) Status: Chronic (5) Mitral stenosis with insufficiency Status: Chronic (6) ANNIE (obstructive sleep apnea) Status: Chronic (7) Obesity Status: Chronic (8) Pulmonary hypertension Status: Chronic Past Medical History - Allergies and Home Meds Allergies/Adverse Reactions: Allergies adhesive tape Allergy (Mild, Verified 01/29/20 09:13) Rash Iodinated Contrast Media [Iodinated Contrast Media - IV Dye] Allergy (Verified 01/29/20 09:13) Hives latex Allergy (Verified 01/29/20 09:13) Itching Sulfa (Sulfonamide Antibiotics) Allergy (Verified 01/29/20 09:13) Hives Primary Care Physician: Allison Varela MD [Primary Care Provider] - Prior records reviewed: Yes - And paperwork that accompanied her from nursing facility Surgical History: noncontributory, - - gallbladder removed, 4 back surgeries. Lives: [facility] Smoking Status: Former smoker Alcohol: None Drugs: None - Family History Paternal Family History: Family History (Last Reviewed 01/05/20 @ 13:57 by Nadia Wu) Father Diabetes Mother Heart disease Diabetes Family History: Reports: Diabetes Review of Systems ROS: Unable to Obtain Respiratory: Reports: Dyspnea Skin: Reports: Wounds - Per paramedics Physical Exam Vital Signs/Narrative: Vital Signs Temp Pulse Resp BP Pulse Ox 02/12/20 08:02 92 02/12/20 07:54 97.7 F L 128 H 34 H 155/52 H 88 Inital Vital Signs reviewed: Yes General: Well nourished, Well developed, Obese, Acute Distress Head: Normocephalic, Atraumatic. Negative for: Trauma, Tenderness Eyes: Perrl, EOMI. Negative for: Pale conjunctiva, Scleral icterus ENT: No rhinorrhea, TM's clear, Dry mucous membranes Neck: Supple, Nontender, No lymphadenopathy Cardiovascular: Regular rhythm, No murmurs, Normal S1, Normal S2, Tachycardia Respiratory: CTA bilaterally, Chest nontender. Negative for: No distress Abdomen: Soft, Nontender, Nondistended, Normal bowel sounds Back: Nontender Extremities: Tenderness - Tenderness over the right left knee due to breakdown of skin from kneeling on knees. There may be surrounding cellulitis., Edema. Negative for: Nontender, No edema Skin: Normal color, Rash. Negative for: Cyanosis, Diaphoresis, Jaundice Neurological: Cranial nerves II-XII grossly intact, Normal Strength, Normal Sensation, Confused, Disoriented. Negative for: Alert, Oriented x3 Psychological: Depressed Diagnostic/Tx/Re-eval Chest X-Ray - ED: 1 View, Read by ED Physician, Normal, Lungs, Mediastinum, Bony Structures, No Acute Disease, Chronic Changes 02/12/20 09:05 Chest 1 View (Portable) [RAD] Stat Laboratory Results 02/12/20 02/12/20 02/12/20 08:25 08:25 08:25 WBC 5.5 RBC 5.18 Hgb 15.6 H Hct 47.8 H MCV 92.3 MCH 30.1 MCHC 32.6 RDW Std Deviation 47.0 H RDW Coeff of Storm 13.6 Plt Count 224 MPV 9.5 Immature Gran % (Auto) 0.900 Neut % (Auto) 81.0 H Lymph % (Auto) 9.8 L [place] % (Auto) 8.1 Eos % (Auto) 0.0 Baso % (Auto) 0.2 Absolute Neuts (auto) 4.5 Absolute Lymphs (auto) 0.54 L Nucleated RBC % 0 Differential Comment SCANNED PT 13.1 INR 1.0 APTT 26.1 Specimen Type Sample Site pH Bicarbonate Actual Total CO2 Base Excess O2 Saturation ABG pCO2 ABG pO2 O2 Delivery Device Liter Flow Sodium 134 L Potassium 4.5 Chloride 105 Carbon Dioxide 15.0 L Anion Gap 14 BUN 32 H Creatinine 2.73 H Estim Creat Clear Calc 18.21 Est GFR (MDRD) Af Amer 22 L Est GFR (MDRD) Non-Af 18 L BUN/Creatinine Ratio 11.7 Glucose 260 H Lactic Acid Calcium 9.1 Total Bilirubin 0.50 AST 126 H ALT 85 H Alkaline Phosphatase 122 H CK Isoenzymes CK-MM (CK-3) CK-MB (CK-2) CK-BB (CK-1) CK Isoenzymes Interp Macro CK Macro CK Type I Macro CK Type II Troponin I 3.170 H* Total Protein 8.1 Albumin 3.8 Globulin 4.3 H Albumin/Globulin Ratio 0.9 Urine Color Urine Clarity Urine pH Ur Specific [place] Urine Protein Urine Glucose (UA) Urine Ketones Urine Occult Blood Urine Nitrite Urine Bilirubin Urine Urobilinogen Ur Leukocyte Esterase Urine RBC Urine WBC Ur Squamous Epith Cells Amorphous Sediment Urine Bacteria Hyaline Casts Fine Granular Casts Urine Mucus 02/12/20 02/12/20 02/12/20 08:25 08:25 08:31 WBC RBC Hgb Hct MCV MCH MCHC RDW Std Deviation RDW Coeff of Storm Plt Count MPV Immature Gran % (Auto) Neut % (Auto) Lymph % (Auto) [place] % (Auto) Eos % (Auto) Baso % (Auto) Absolute Neuts (auto) Absolute Lymphs (auto) Nucleated RBC % Differential Comment PT INR APTT Specimen Type ART Sample Site R Brach pH 7.32 L Bicarbonate Actual 13.5 L Total CO2 14 Base Excess -13 L O2 Saturation 93 L ABG pCO2 26.1 L ABG pO2 71 L O2 Delivery Device Cannula Liter Flow 3.0 Sodium Potassium Chloride Carbon Dioxide Anion Gap BUN Creatinine Estim Creat Clear Calc Est GFR (MDRD) Af Amer Est GFR (MDRD) Non-Af BUN/Creatinine Ratio Glucose Lactic Acid 5.0 H* Calcium Total Bilirubin AST ALT Alkaline Phosphatase CK Isoenzymes Cancelled CK-MM (CK-3) Cancelled CK-MB (CK-2) Cancelled CK-BB (CK-1) Cancelled CK Isoenzymes Interp Cancelled Macro CK Cancelled Macro CK Type I Cancelled Macro CK Type II Cancelled Troponin I Total Protein Albumin Globulin Albumin/Globulin Ratio Urine Color Urine Clarity Urine pH Ur Specific [place] Urine Protein Urine Glucose (UA) Urine Ketones Urine Occult Blood Urine Nitrite Urine Bilirubin Urine Urobilinogen Ur Leukocyte Esterase Urine RBC Urine WBC Ur Squamous Epith Cells Amorphous Sediment Urine Bacteria Hyaline Casts Fine Granular Casts Urine Mucus 02/12/20 08:51 WBC RBC Hgb Hct MCV MCH MCHC RDW Std Deviation RDW Coeff of Storm Plt Count MPV Immature Gran % (Auto) Neut % (Auto) Lymph % (Auto) [place] % (Auto) Eos % (Auto) Baso % (Auto) Absolute Neuts (auto) Absolute Lymphs (auto) Nucleated RBC % Differential Comment PT INR APTT Specimen Type Sample Site pH Bicarbonate Actual Total CO2 Base Excess O2 Saturation ABG pCO2 ABG pO2 O2 Delivery Device Liter Flow Sodium Potassium Chloride Carbon Dioxide Anion Gap BUN Creatinine Estim Creat Clear Calc Est GFR (MDRD) Af Amer Est GFR (MDRD) Non-Af BUN/Creatinine Ratio Glucose Lactic Acid Calcium Total Bilirubin AST ALT Alkaline Phosphatase CK Isoenzymes CK-MM (CK-3) CK-MB (CK-2) CK-BB (CK-1) CK Isoenzymes Interp Macro CK Macro CK Type I Macro CK Type II Troponin I Total Protein Albumin Globulin Albumin/Globulin Ratio Urine Color Yellow Urine Clarity Cloudy Urine pH 5.0 Ur Specific [place] 1.025 Urine Protein 100 H Urine Glucose (UA) Normal Urine Ketones Negative Urine Occult Blood 250 H Urine Nitrite Negative Urine Bilirubin Negative Urine Urobilinogen Normal Ur Leukocyte Esterase Negative Urine RBC 10-25 SEEN Urine WBC 5-10 SEEN Ur Squamous Epith Cells 0-5 SEEN Amorphous Sediment 1+ Urine Bacteria 3+ Hyaline Casts 0-5 SEEN Fine Granular Casts 0-5 SEEN Urine Mucus 3+ White count is normal. Differential reveals a shift with no bandemia. Basic metabolic panel reveals a nonanion gap acidosis. One-point creatinine is elevated 2.73. Troponin is elevated 3.17. CPK is pending. Urine is consistent with infection. Since lactate was greater than 4 she received a 30 cc/kg bolus. I was informed that her Covid test is positive. Chest x-ray per my interpretation reveals no obvious infiltrate. Cardiac silhouette is unremarkable. Borderline cardiomegaly. Mediastinum is unremarkable. There is no evidence of effusion or pneumothorax. Because patient does have evidence of cellulitis of her knees from skin breakdown and urinary tract infection she was treated with Zosyn which will cover both cellulitis and urinary tract infection. Hospitalist was paged for admission to ICU. - EKG Initial EKG Interpretation: Sinus Tachycardia - Sinus tachycardia with a ventricular rate of 106. [place] interval 120 ms. QRS duration 94 ms. QT duration 336 ms. [place] is normal. There are peaked T waves which may represent hyperkalemia. This is a concern since patient was on the floor all evening and may have rhabdomyolysis. - Medical Decision Making Patient vitals were abnormal. This may represent infectious process or metabolic process. Need to evaluate for pneumonia, urinary tract infection, rhabdomyolysis and renal dysfunction. She received a liter of fluid. Tetanus was updated. - Critical Care Time Critical care time (excluding procedures): 30-74 minutes - Care time 33 minutes which included interpretation of laboratory results, chest x-ray, taking history, reviewing skilled nursing notes, reviewing prior records, documentation, initiation of treatment for septic shock, Discussing w/Consultants, Arranging Admission or Transfer ED Disposition - Plan for ED Patient: Disposition: Acute Care Hospital [facility] Diagnosis: Septic shock, Urinary tract infection, Elevated serum creatinine, Elevated troponin I level, COVID-19 virus infection, Sinus tachycardia by electrocardiogram Referrals: Allison Varela MD [Primary Care Provider] -
[2020-02-12 08:35] LABS: Base Excess -13 mmol/L (-2 to +2); Bicarbonate 13.5 mmol/L (22-26); Blood Gas Specimen Type ART; O2 Delivery Device Cannula; PO2 71 mmHG (75-100); SITE R Brach; SO2 93 % (95-99); Total Carbon Dioxide 14 mmol/L; pCO2 26.1 mmHg (35-45); pH 7.32 (7.35-7.45)
[2020-02-12 08:53] LABS: Absolute Lymphocyte Count 0.54 X10^3/uL (0.83-4.51); Absolute Neutrophil Count 4.5 X10^3/uL (2.0-7.7); Basophil# 0.01 X10^3/uL; Basophil% 0.2 % (0-1); Hematocrit 47.8 % (37-47); Hemoglobin 15.6 g/dL (12.0-15.0); Lymphocyte # 0.54 X10^3/ul (4.0); Lymphocyte % 9.8 % (19-41); Mean Corp Hgb Conc 32.6 g/dL (32-36); Mean Corpuscular Hgb 30.1 pg (27.0-32.0); Mean Corpuscular Volume 92.3 fL (81-99); Mean Platelet Vol. 9.5 fl (6.2-12.0); Monocyte# 0.45 X10^3/uL; Monocyte% 8.1 % (0-10); NRBC Flagged by Analyzer 0 % (0-5); Neutrophil # 4.48 X10^3/uL (2.7-7.7); POSITIVE DIFFERENTIAL YES; Platelet Count 224 K/mm3 (150-450); RBC Distribution Width CV 13.6 % (11.6-14.6); Red Blood Count 5.18 M/mm3 (4.2-5.4); White Blood Count 5.5 K/mm3 (4.4-11.0)
[2020-02-12] MEDS: Diphth,Pertuss(Acell),Tet Vac 0.5 ML Vial IM (08:57)
[2020-02-12 09:02] LABS: Color, Urine Yellow (Yellow); Glucose, Dipstick Normal (Normal); Ketone-Dipstick Negative (Negative); Leukocyte Esterase-Dipstick Negative /ul (Negative); Nitrite-Dipstick Negative (Negative); Occult Blood-Urine 250 /ul (Negative); Protein-Dipstick 100 mg/dl (Negative); Specific Gravity, Urine 1.025 (1.002-1.030); Urine Bilirubin Dipstick Negative (Negative); Urine Clarity Cloudy (Clear); Urine Urobilinogen Normal (Normal)
--- NOTE | 2020-02-12 09:05 | RAD_ITS ---
STUDY: X-RAY CHEST REASON FOR EXAM: Female, 70 years old. Fall, dyspnea TECHNIQUE: Single AP portable view of the chest. COMPARISON: 2014 FINDINGS: EKG leads overlie the chest The lungs are clear and expanded. There is no demonstrated pleural abnormality. Normal size heart. Normal mediastinum and kelly. Normal visualized pulmonary arteries. Normal visualized aortic arch and descending thoracic aorta. There are diffuse degenerative changes of the visualized thoracic spine. Normal visualized ribs, clavicles, and shoulders. There is no demonstrated abnormality of the visualized soft tissue structures of the upper abdomen. RAD/Chest 1 View (Portable) IMPRESSION: No acute pulmonary process Electronically Signed: Henry Floyd MD at 12:29 EST , Service support ,
[2020-02-12 09:10] LABS: Bacteria 3+ /hpf (None Seen); Mucous, Urine 3+ /hpf (<or=2+)
[2020-02-12 09:13] LABS: Fine Granular Cast- Urine 0-5 SEEN /lpf (0-5)
[2020-02-12 09:14] LABS: Hyaline Cast 0-5 SEEN /lpf (0-5)
[2020-02-12 09:15] LABS: ALB/GLOB Ratio 0.9 RATIO (0.9-2.4); AST(SGOT) 126 U/L (15-37); Alanine Aminotransfer ALT/SGPT 85 U/L (13-56); Albumin, Serum 3.8 g/dL (3.2-5.0); Alkaline Phosphatase 122 U/L (45-117); Anion Gap 14 (5-15); BUN 32 mg/dL (7-18); BUN/Creat Ratio 11.7 RATIO (10-20); Calcium,Total 9.1 mg/dL (8.5-10.1); Chloride 105 mmol/L (98-107); Creatinine, Serum 2.73 mg/dL (0.55-1.02); EST Glomerular Filtration Rate 18 mL/min (>60); Est Glom Filt Rate - Afr Amer 22 mL/min (>60); Estimated Creatinine Clearance 18.21 ml/min; Globulin 4.3 g/dL (2.2-4.2); Glucose 260 mg/dL (74-106); Potassium 4.5 mmol/L (3.5-5.1); Protein, Total 8.1 g/dL (6.4-8.2); Sodium Level 134 mmol/L (136-145)
[2020-02-12 09:15] LABS: Red Blood Cells-Urine 10-25 SEEN /hpf (0-5); White Blood Cells 5-10 SEEN /hpf (0-5)
[2020-02-12 09:16] LABS: Amorphous Sediment 1+; Squamous Epithelial Cells - UA 0-5 SEEN /hpf (5-10)
[2020-02-12 09:20] LABS: Differential Indicated SCAN CRITERIA MET
[2020-02-12 09:21] LABS: Differential Comment SCANNED
[2020-02-12 09:22] LABS: Prothrombin Time (Protime)PT. 13.1 SECONDS (11.7-14.9)
[2020-02-12 09:23] LABS: Partial Thromboplast Time 26.1 Seconds (24.1-36.2)
[2020-02-12 09:27] LABS: Probe Check PASS; Specimen Processing Control PASS
[2020-02-12 09:43] LABS: CPK Total, Creatine Kinase 4846 U/L (26-192)
--- NOTE | 2020-02-12 10:04 | PCM.HP.STD ---
Problem List (1) NSTEMI (non-ST elevated myocardial infarction) Status: Acute (2) Rhabdomyolysis Status: Acute Qualifiers: Rhabdomyolysis type: non-traumatic Qualified Code(s): M62.82 - Rhabdomyolysis (3) COVID-19 virus infection Status: Acute (4) ANNIE (obstructive sleep apnea) Status: Chronic (5) Obesity Status: Chronic Qualifiers: Obesity type: due to excess calories Obesity classification: adult class 3 (BMI >= 40) Serious obesity comorbidity presence: with serious comorbidity Body mass index: BMI 40.0-44.9 Qualified Code(s): E66.01 - Morbid (severe) obesity due to excess calories; Z68.41 - Body mass index (BMI) 40.0-44.9, adult (6) HTN (hypertension) Status: Chronic Qualifiers: Hypertension type: essential hypertension Qualified Code(s): I10 - Essential (primary) hypertension (7) COPD (chronic obstructive pulmonary disease) Status: Chronic Qualifiers: COPD type: unspecified COPD Qualified Code(s): J44.9 - Chronic obstructive pulmonary disease, unspecified History of Present Illness Date of Admission: 02/12/20 Chief Complaint: Generalised weakness The patient is a 70 year old F with past medical history of obesity, hypertension, ANNIE, COPD who comes in with complaints of generalized weakness. Patient was attempting to get-up when she fell down. She however felt that in between the bed and the dresser. She is a poor historian. Attempts are called in a group home was unsuccessful as nobody picks the phone. She stated that she was on the floor the whole night. She was found this morning during the morning check. She was on her knees unable to get up. She denied any chest pain or dizziness or palpitations. She denied any fevers. Vitals in the ED showed temperature of 90 7.7F, heart rate 128, blood pressure 155/52, [place] rate 34, SPO2 was 88% on room air, saturating 92% on 3 L of oxygen. Her admitting blood work show WBC count of 5.5, hemoglobin 15.6, platelet count of 224, INR 1.0, pH was 7.32, PCO2 was 26.1, PO2 of 71. Sodium was 134, potassium 4.5, chloride 105, carbonate 15, BUN 32, creatinine 3.73, baseline creatinine was 1, blood sugar was 260, lactic acid was 5.0, troponin was 3.170, CK was 4846. Chest x-ray showed no acute cardiopulmonary process Past Medical History Past Medical History (Chronic Problems): Chronic Problems (Last Reviewed 01/05/20 @ 13:56 by Nadia Wu) Mast esophagus (Chronic) Pulmonary hypertension (Chronic) ANNIE (obstructive sleep apnea) (Chronic) Obesity (Chronic) SOB (shortness of breath) (Chronic) Mitral stenosis with insufficiency (Chronic) Tricuspid valve disorder (Chronic) Depression (Chronic) HTN (hypertension) (Chronic) COPD (chronic obstructive pulmonary disease) (Chronic) Medical History: Medical History (Last Reviewed 01/05/20 @ 13:56 by Nadia Wu) Screening for malignant neoplasm of intestine (Acute) Z12.10 Mast esophagus (Chronic) K22.70 Pulmonary hypertension (Chronic) I27.20 Hypoxemia (Acute) R09.02 ANNIE (obstructive sleep apnea) (Chronic) G47.33 Obesity (Chronic) E66.9 Dyspnea (Acute) R06.00 SOB (shortness of breath) (Chronic) R06.02 Mitral stenosis with insufficiency (Chronic) I05.2 Tricuspid valve disorder (Chronic) I07.9 Sinusitis (Acute) J32.9 Depression (Chronic) F32.9 Diverticulitis (Acute) K57.92 HTN (hypertension) (Chronic) I10 COPD (chronic obstructive pulmonary disease) (Chronic) J44.9 Allergies adhesive tape Allergy (Mild, Verified 01/29/20 09:13) Rash Iodinated Contrast Media [Iodinated Contrast Media - IV Dye] Allergy (Verified 01/29/20 09:13) Hives latex Allergy (Verified 01/29/20 09:13) Itching Sulfa (Sulfonamide Antibiotics) Allergy (Verified 01/29/20 09:13) Hives Home Medications: Ambulatory Orders Medication Instructions Recorded Atorvastatin Calcium [Lipitor] 10 mg PO DAILY 03/09/15 Bupropion HCl [Wellbutrin Sr] 200 mg PO DAILY 03/09/15 Losartan Potassium [Cozaar] 50 mg PO DAILY 03/09/15 Oxybutynin Chloride [Ditropan Xl] 15 mg PO DAILY 03/09/15 Risperidone [Risperdal] 0.25 mg PO TID 03/09/15 Omeprazole [Prilosec] 20 mg PO DAILY 10/27/15 chlorhexidine gluconate 0.12 % 15 ml BUCCAL BID 04/05/17 mouthwash fluticasone propionate 50 2 spray INTRANASAL QDAY 04/05/17 mcg/actuation nasal spray,suspension umeclidinium 62.5 mcg-vilanterol 1 inh INHALATION Q24H #60 ea 04/30/18 25 mcg/actuation powdr for inhalation acetaminophen 325 mg tablet 325 mg PO Q6H PRN 08/12/18 albuterol sulfate 90 mcg/actuation 1 puff INHALATION Q6H PRN 08/12/18 aerosol inhaler bisacodyl 10 mg rectal suppository 10 mg RC DAILY PRN 08/12/18 calcium carbonate 200 mg calcium 200 mg PO BID tab 08/12/18 (500 mg) chewable tablet ondansetron HCl 4 mg tablet 4 mg PO BID-TID PRN 08/12/18 polyethylene glycol 3350 17 17 g PO DAILY 08/12/18 gram/dose oral powder terconazole 0.4 % vaginal cream 1 appful VAGINAL QHS PRN 08/12/18 triamcinolone acetonide 0.5 % 1 applic TOPICAL BID #15 g 08/12/18 topical cream diphenhydramine HCl 12.5 mg/5 mL 12.5 mg PO QHS PRN 11/05/19 oral elixir loperamide 2 mg capsule 2 mg PO Q6H PRN 11/05/19 melatonin 10 mg capsule 10 mg PO HS PRN 11/05/19 cetirizine 10 mg tablet 10 mg PO DAILY PRN tab 01/05/20 clonazepam 2 mg tablet 2 mg PO QHS tab 01/05/20 metformin 500 mg tablet 1,000 mg PO BID tab 01/05/20 sennosides 8.6 mg-docusate sodium 1 tab-cap PO DAILY tab 01/05/20 50 mg tablet Surgical History: Surgical History (Last Updated 01/05/20 @ 13:57 by Nadia Wu) History of left heart catheterization (Resolved) Z98.890 History of cholecystectomy Z90.49 History of lumbar laminectomy Z98.890 Surgical History: cholecystectomy, - - gallbladder removed, 4 back surgeries,status post cardiac cath Psychiatric History: Anxiety, Depression 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 Denies: Chills, Fever, Night Sweats, Weight Change Eyes: Denies: Blurred vision, Cataracts, Conjunctivae Inflammation, Pain, Redness HEENT: Denies: Difficulty Hearing, Difficulty Swallowing, Head Aches, Hearing Changes, Sinus Congestion, Sinus Drainage Cardiovascular: Denies: Chest Pain, Claudication, Orthopnea, Palpitations Respiratory: Reports: Cough, Shortness of Breath, Shortness of breath at rest, Shortness of breath upon exertion. Denies: Sputum production Gastrointestinal: Denies: Abdominal Pain, Constipation, Hematemesis, Hematochezia, Nausea, Vomiting Genitourinary: Denies: Dysuria, Frequency, Incontinence Musculoskeletal: Denies: Joint Pain, Joint stiffness, Joint swelling, Joint Tenderness Skin: Denies: Rash, Wounds Neurological: Denies: Difficulty swallowing, Focal weakness, Numbness, Tingling Psychiatric: Denies: Anxiety, Depression, Homicidal Ideations, Suicidal Ideations Hematologic/ Lymphatic: Denies: Easy Bruising, Easy Bleeding VTE Information - Inpt Only VTE Present on Admission: No VTE Pharm Prophylaxis ordered?: Yes Patient Problems: Active and Suspected Problems (Last Reviewed 01/05/20 @ 13:56 by Nadia Wu) Septic shock (Acute) Urinary tract infection (Acute) Elevated serum creatinine (Acute) Elevated troponin I level (Acute) COVID-19 virus infection (Acute) Sinus tachycardia by electrocardiogram (Acute) - Physical Exam Vitals/I&O's: Vital Signs Temp Pulse Resp BP Pulse Ox 97.7 F L 99 30 H 125/65 H 92 02/12/20 09:15 02/12/20 09:15 02/12/20 09:15 02/12/20 09:15 02/12/20 09:15 Oxygen Flow Rate (L/min) 3 Oxygen Delivery Method Nasal Cannula Weight: 108.7 kg Body Mass Index (BMI) 38.7 General: Alert, Oriented x3, Cooperative, - - Appears tearful, 3 L of oxygen HEENT: Atraumatic, PERRLA, EOMI, Normocephalic Oral: Dry Mucosa Neck: Supple Lungs: Diminished Cardiovascular: Regular rate, Regular Rhythm, Normal S1, Normal S2, No murmurs Abdomen: Bowel Sounds Present, Soft, Non Tender, Non-Distended, No Hepato-splenomegaly Extremities: Edema - bilateral trace, erythema to both knees/abrasions Skin: - - see under extremities Musculoskeletal: No Tenderness to Palpation of Joints or Extremities Lymphatic: No Cervical, Supraclavicular, or Inguinal Adenopathy Neurological: Cranial nerves II-XII grossly intact, Neuro grossly intact Psych/Mental Status: Normal Affect, Appropriate Laboratory Results 02/12/20 08:21: COVID-19 (ANDREW) Positive 02/12/20 08:25: WBC 5.5, RBC 5.18, Hgb 15.6 H, Hct 47.8 H, MCV 92.3, MCH 30.1, MCHC 32.6, RDW Std Deviation 47.0 H, RDW Coeff of Storm 13.6, Plt Count 224, MPV 9.5, Immature Gran % (Auto) 0.900, Neut % (Auto) 81.0 H, Lymph % (Auto) 9.8 L, [place] % (Auto) 8.1, Eos % (Auto) 0.0, Baso % (Auto) 0.2, Absolute Neuts (auto) 4.5, Absolute Lymphs (auto) 0.54 L, Nucleated RBC % 0, Differential Comment SCANNED 02/12/20 08:25: PT 13.1, INR 1.0, APTT 26.1 02/12/20 08:25: Sodium 134 L, Potassium 4.5, Chloride 105, Carbon Dioxide 15.0 L, Anion Gap 14, BUN 32 H, Creatinine 2.73 H, Estim Creat Clear Calc 18.21, Est GFR (MDRD) Af Amer 22 L, Est GFR (MDRD) Non-Af 18 L, BUN/Creatinine Ratio 11.7, Glucose 260 H, Calcium 9.1, Total Bilirubin 0.50, AST 126 H, ALT 85 H, Alkaline Phosphatase 122 H, Troponin I 3.170 H*, Total Protein 8.1, Albumin 3.8, Globulin 4.3 H, Albumin/Globulin Ratio 0.9 02/12/20 08:25: Lactic Acid 5.0 H* 02/12/20 08:25: CK Isoenzymes Cancelled, CK-MM (CK-3) Cancelled, CK-MB (CK-2) Cancelled, CK-BB (CK-1) Cancelled, CK Isoenzymes Interp Cancelled, Macro CK Cancelled, Macro CK Type I Cancelled, Macro CK Type II Cancelled 02/12/20 08:31: Specimen Type ART, Sample Site R Brach, pH 7.32 L, Bicarbonate Actual 13.5 L, Total CO2 14, Base Excess -13 L, O2 Saturation 93 L, ABG pCO2 26.1 L, ABG pO2 71 L, O2 Delivery Device Cannula, Liter Flow 3.0 02/12/20 08:39: Total Creatine Kinase 4846 H 02/12/20 08:51: Urine Color Yellow, Urine Clarity Cloudy, Urine pH 5.0, Ur Specific [place] 1.025, Urine Protein 100 H, Urine Glucose (UA) Normal, Urine Ketones Negative, Urine Occult Blood 250 H, Urine Nitrite Negative, Urine Bilirubin Negative, Urine Urobilinogen Normal, Ur Leukocyte Esterase Negative, Urine RBC 10-25 SEEN, Urine WBC 5-10 SEEN, Ur Squamous Epith Cells 0-5 SEEN, Amorphous Sediment 1+, Urine Bacteria 3+, Hyaline Casts 0-5 SEEN, Fine Granular Casts 0-5 SEEN, Urine Mucus 3+ Current Medications Sodium Chloride () 1,000 mls @ 999 mls/hr IV .Q1H1M [facility]; Protocol Stop: 02/12/20 11:20 Assessment/Plan All Active Problems (Last Reviewed 01/05/20 @ 13:56 by Nadia Wu) Septic shock (Acute) Urinary tract infection (Acute) Elevated serum creatinine (Acute) Elevated troponin I level (Acute) COVID-19 virus infection (Acute) Sinus tachycardia by electrocardiogram (Acute) NSTEMI (non-ST elevated myocardial infarction) (Acute) Rhabdomyolysis (Acute) Screening for malignant neoplasm of intestine (Acute) History of left heart catheterization (Resolved) Hypoxemia (Acute) Dyspnea (Acute) Sinusitis (Acute) Diverticulitis (Acute) 1. Acute hypoxic respiratory sufficient secondary to acute COVID-19 infection Patient is currently on 3 L of oxygen Continue with breathing treatments, encourage use of incentive spirometer. Wean off oxygen for SPO2 more than 94% 2. Acute COVID-19 infection with hypoxia Chest x-ray shows no infiltrate Will start patient on dexamethasone. Would not start on remdesivir on account of IGNACIA Pulmonology consult 3. Acute non-STEMI likely secondary to rhabdomyolysis/demand ischemia History of CAD, EKG shows no acute ST-T changes Admitting troponin is more than 3, trend troponins Cardiology consult, start on aspirin, statin, carvedilol, 2d-echo 4. IGNACIA, prerenal secondary to dehydration versus rhabdomyolysis Baseline creatinine around 1.1, admitted creatinine 2.73 Continue on IV fluids, repeat blood work in a.m. 5. Lactic acidosis likely secondary to hypoxia, resolved 6. Acute rhabdomyolysis, secondary to fall and being on her knees the whole night Admitting CKs 4846, will trend in a.m., continue IV fluids 7. Bilateral knee cellulitis from bilateral knee abrasion from prolonged stay on her knees abrasion, Will start IV cefazolin to cover cellulitis 8. ANNIE on CPAP 9. Hypertension, controlled, will continue to monitor Hold losartan 10. Type II DM, hold Metformin, continue blood glucose checks and sliding scale 11. DVT prophylaxis with heparin subcu Inpatient E&M: 46074 Init Hosp L3
[2020-02-12] MEDS: Aspirin 81 MG TAB.CHEW 324 MG PO (11:08)
[2020-02-12] MEDS: 0.9% Normal Saline 1,000 ML 999 ML IV ×2 (12:00→14:00)
--- NOTE | 2020-02-12 12:27 | CASEMGMT ---
Social Work [facility] Received phone call from a man reporting to be patent's son, Manuel Flores ([phone]). Manuel reported that patient has a Legal Guardian named Cristal, who is a volunteer guardian, but that hasn't had an update from said guardian. Manuel reports he received an update from patient's sister and previous guardian about patient's admission and medical status. Manuel voiced desire for updates. Educated Manuel that social work can look into where patient was admitted, and check on guardian status, then if guardian is in place will need to get permission from the guardian or have the guardian directly update. Manuel accepted this without issue. Manuel reports patient has had a legal guardian for many years, after a mental breakdown. Manuel reports that patient fell and was stuck in-between the bed and the wall when found by [facility] staff. Manuel also reports that patient has just been diagnosed with COVID, but a test last week or so was negative. Brief chart review and noted the last guardianship paper on file indicates the sister as the guardian. Handoff of TITA Kahn who will follow up with the [facility] and with the guardian, including the son's desire to be updated to patient's status. Plan: From [facility], but will need to check on ability to take care of COVID positive patients. Social work is actively following. -LEXX Patricio, TITA
[2020-02-12 12:44] LABS: Reflex Lactate? Y
[2020-02-12 13:00] LABS: Bedside Glucose 133 mg/dL (70-110)
--- NOTE | 2020-02-12 13:22 | CASEMGMT ---
Addendum entered by Criss Seymour 02/12/20 13:57: Cristal returned call and thanked SW for phone call and she will definitely keep son updated on pt's medical condition. Original Note: Social Work Received hand-off from SW. Contacted [facility] and spoke with nurse. Explained pt is positive COVID and inquired about return when medically stable. Nurse stated pt can return being positive but could not require a lot of assistance. SW explained when pt is closer to [place] will send updated clinical information for them to determine if they can accept pt with needed assistance level. Nurse agreed. SW inquired about nurse faxing updated guardianship paperwork for SW to put on pt's chart. Nurse faxed paperwork. Guardian is Cristal Bañuelos. Placed paperwork on pt chart. Contacted Cristal - left message on indicated confidential voicemail, that son Manuel, is requesting an update on pt's status and wanting continuous updates, provided son's phone number, and also stated that pt can return to [facility] as COVID positive if she does not require a lot of care. Provided SW contact information for return call if questions. Provided hand-off to current ICU social media marketing manager. SW to continue to follow. Criss Seymour, TITA LEADERSHIP DEVELOPMENT INSTRUCTOR
--- NOTE | 2020-02-12 13:47 | CASEMGMT ---
Guardianship forms on the front of the chart. LEXX Jacques
[2020-02-12] MEDS: 0.9% Normal Saline 1,000 ML 125 ML IV ×2 (14:20→22:20)
[2020-02-12 15:04] LABS: Lactic Acid 1.9 mmol/L (0.4-1.9)
--- NOTE | 2020-02-12 15:25 | PCM.CON.CC ---
Problem List (1) Septic shock Status: Acute (2) Urinary tract infection Status: Acute (3) COVID-19 virus infection Status: Acute (4) Sinus tachycardia by electrocardiogram Status: Acute (5) Mast esophagus Status: Chronic Qualifiers: Mast's esophagus type: with dysplasia of unspecified degree Qualified Code(s): K22.719 - Mast's esophagus with dysplasia, unspecified; K22.71 - Mast's esophagus with dysplasia (6) Pulmonary hypertension Status: Chronic (7) ANNIE (obstructive sleep apnea) Status: Chronic (8) Obesity Status: Chronic Qualifiers: Obesity type: due to excess calories Obesity classification: adult class 3 (BMI >= 40) Serious obesity comorbidity presence: with serious comorbidity Body mass index: BMI 40.0-44.9 Qualified Code(s): E66.01 - Morbid (severe) obesity due to excess calories; Z68.41 - Body mass index (BMI) 40.0-44.9, adult (9) Depression Status: Chronic Qualifiers: Depression Type: unspecified Qualified Code(s): F32.9 - Major depressive disorder, single episode, unspecified (10) HTN (hypertension) Status: Chronic Reason for Consult Date of Consultation: 02/12/20 Reason for Consultation: Septic shock History of Present Illness: The patient is a 70 year old F with past medical history listed below and well-known to me from outpatient office, who presented to [facility] on 02/12/2020 secondary to being found down at home. Patient suffers from short-term memory difficulties, so was not able to provide very adequate history. This is her baseline functioning and she normally presents to outpatient appointments with her sisters. Patient reportedly was feeling fine and was unable to get up after falling. Patient is unclear on how long she was down, but was found by a nurse on her hands and knees. Patient reportedly had only complained of some mild shortness of breath and weakness. In the ER, patient was noted to be hypertensive at 155/52, tachycardic at 128 and hypoxic. Patient does not use supplemental oxygen at baseline. Laboratory work-up showed a white blood cell count of 5.5, hemoglobin of 15.6, normal coagulation studies and acute kidney injury with a creatinine of 2.7 and a bicarbonate of 15. Patient was hyperglycemic at 260 and did have an elevated AST and ALT. Patient's troponin was also elevated at 3.17 and an arterial blood gas showed a partially compensated metabolic acidosis. Lactate was noted to be at 5 and urinalysis was consistent with a probable infection. Chest x-ray did not show any obvious infiltrates, but a COVID-19 test was sent and came back positive. Patient was treated with Zosyn, fluid bolus and transferred to the intensive care unit for further evaluation. Since being in the intensive care unit, patient reports subjective improvement since receiving fluid boluses. Patient is not able to provide much additional history. Patient is not reporting any known Covid exposures. Patient does see me as an outpatient and is treated for obstructive sleep apnea with CPAP 8 cm of water and is compliant. Patient also carries a diagnosis of pulmonary hypertension, but is not required supplemental oxygen in the past. Patient's last pulmonary function test was completed in June 2018 showing a mild large airways obstructive ventilatory defect with a dissymmetric decrease in DLCO (FVC 100%, FEV1 84%, TLC 92%, DLCO 42%). Patient's last echocardiogram was completed in 2017 showing an EF of 65% with stage I diastolic dysfunction and a right ventricular systolic pressure of 45, which was consistent with a previous echo in 2013. Unable to obtain a full review of systems secondary to patient's memory issues. Past Medical History Past Medical History (Chronic Problems): Chronic Problems (Last Reviewed 01/05/20 @ 13:56 by Nadia Wu) Mast esophagus (Chronic) Pulmonary hypertension (Chronic) ANNIE (obstructive sleep apnea) (Chronic) Obesity (Chronic) SOB (shortness of breath) (Chronic) Mitral stenosis with insufficiency (Chronic) Tricuspid valve disorder (Chronic) Depression (Chronic) HTN (hypertension) (Chronic) COPD (chronic obstructive pulmonary disease) (Chronic) Medical History: Medical History (Last Reviewed 01/05/20 @ 13:56 by Nadia Wu) Screening for malignant neoplasm of intestine (Acute) Z12.10 Mast esophagus (Chronic) K22.70 Pulmonary hypertension (Chronic) I27.20 Hypoxemia (Acute) R09.02 ANNIE (obstructive sleep apnea) (Chronic) G47.33 Obesity (Chronic) E66.9 Dyspnea (Acute) R06.00 SOB (shortness of breath) (Chronic) R06.02 Mitral stenosis with insufficiency (Chronic) I05.2 Tricuspid valve disorder (Chronic) I07.9 Sinusitis (Acute) J32.9 Depression (Chronic) F32.9 Diverticulitis (Acute) K57.92 HTN (hypertension) (Chronic) I10 COPD (chronic obstructive pulmonary disease) (Chronic) J44.9 Allergies adhesive tape Allergy (Mild, Verified 01/29/20 09:13) Rash Iodinated Contrast Media [Iodinated Contrast Media - IV Dye] Allergy (Verified 01/29/20 09:13) Hives latex Allergy (Verified 01/29/20 09:13) Itching Sulfa (Sulfonamide Antibiotics) Allergy (Verified 01/29/20 09:13) Hives Home Medications: Ambulatory Orders Medication Instructions Recorded Atorvastatin Calcium [Lipitor] 10 mg PO DAILY 03/09/15 Bupropion HCl [Wellbutrin Sr] 200 mg PO DAILY 03/09/15 Losartan Potassium [Cozaar] 50 mg PO DAILY 03/09/15 Oxybutynin Chloride [Ditropan Xl] 15 mg PO DAILY 03/09/15 Risperidone [Risperdal] 0.25 mg PO TID 03/09/15 Omeprazole [Prilosec] 20 mg PO DAILY 10/27/15 chlorhexidine gluconate 0.12 % 15 ml BUCCAL BID 04/05/17 mouthwash fluticasone propionate 50 2 spray INTRANASAL QDAY 04/05/17 mcg/actuation nasal spray,suspension umeclidinium 62.5 mcg-vilanterol 1 inh INHALATION Q24H #60 ea 04/30/18 25 mcg/actuation powdr for inhalation acetaminophen 325 mg tablet 325 mg PO Q6H PRN 08/12/18 albuterol sulfate 90 mcg/actuation 1 puff INHALATION Q6H PRN 08/12/18 aerosol inhaler bisacodyl 10 mg rectal suppository 10 mg RC DAILY PRN 08/12/18 calcium carbonate 200 mg calcium 200 mg PO BID tab 08/12/18 (500 mg) chewable tablet ondansetron HCl 4 mg tablet 4 mg PO BID-TID PRN 08/12/18 polyethylene glycol 3350 17 17 g PO DAILY 08/12/18 gram/dose oral powder terconazole 0.4 % vaginal cream 1 appful VAGINAL QHS PRN 08/12/18 triamcinolone acetonide 0.5 % 1 applic TOPICAL BID #15 g 08/12/18 topical cream diphenhydramine HCl 12.5 mg/5 mL 12.5 mg PO QHS PRN 11/05/19 oral elixir loperamide 2 mg capsule 2 mg PO Q6H PRN 11/05/19 melatonin 10 mg capsule 10 mg PO HS PRN 11/05/19 cetirizine 10 mg tablet 10 mg PO DAILY PRN tab 01/05/20 clonazepam 2 mg tablet 2 mg PO QHS tab 01/05/20 metformin 500 mg tablet 1,000 mg PO BID tab 01/05/20 sennosides 8.6 mg-docusate sodium 1 tab-cap PO DAILY tab 01/05/20 50 mg tablet Surgical History: Surgical History (Last Updated 01/05/20 @ 13:57 by Nadia Wu) History of left heart catheterization (Resolved) Z98.890 History of cholecystectomy Z90.49 History of lumbar laminectomy Z98.890 Surgical History: noncontributory, - - gallbladder removed, 4 back surgeries. [facility]: [facility] Smoking Status: Former smoker Alcohol: None Drugs: None - *Family History Paternal Family History: Family History (Last Reviewed 01/05/20 @ 13:57 by Nadia Wu) Father Diabetes Mother Heart disease Diabetes History Items: Diabetes Review of Systems Unable to obtain accurate/complete ROS d/t: See HPI Patient Problems: Active and Suspected Problems (Last Reviewed 01/05/20 @ 13:56 by Nadia Wu) Septic shock (Acute) Urinary tract infection (Acute) Elevated serum creatinine (Acute) Elevated troponin I level (Acute) COVID-19 virus infection (Acute) Sinus tachycardia by electrocardiogram (Acute) Objective: All imaging was personally reviewed. Previous echocardiogram and PFT were described in the HPI. - Physical Exam Vitals/I&O's: Vital Signs Temp Pulse Resp BP Pulse Ox 36.3 C L 84 22 H 121/59 H 92 02/12/20 12:30 02/12/20 12:30 02/12/20 14:00 02/12/20 12:30 02/12/20 12:30 Oxygen Flow Rate (L/min) 3 Oxygen Delivery Method Nasal Cannula Weight: 108.7 kg Body Mass Index (BMI) 38.7 Intake and Output for Last 24 Hours 02/10/20 02/11/20 02/12/20 23:59 23:59 23:59 Intake Total 1471 / 1471 Balance 147 / 1471 General: Alert, Cooperative, No apparent distress, Disoriented, - - Appears at baseline mental status per previous office visits HEENT: Atraumatic, PERRLA, EOMI, Normocephalic, - - Slight scleral injection without icterus Oral: Moist Mucosa, No Gingival or Mucosal Lesions/ Ulcerations Neck: Supple, No JVD, No Nodes, Trachea Midline Lungs: No rhonchi, No wheeze, No rales, Diminished, - - Symmetric expansion. No dullness to percussion. Cardiovascular: Regular rate, Regular Rhythm, Normal S1, Normal S2, No murmurs, No rub noted, No Gallop Abdomen: Bowel Sounds Present, Soft, Non Tender, Non-Distended, Obese Extremities: No clubbing, No cyanosis, Edema - Trace to 1+ Skin: - - Erythema noted on bilateral knees anteriorly. No obvious breakdown noted. Musculoskeletal: No Tenderness to Palpation of Joints or Extremities Lymphatic: No Cervical, Supraclavicular, or Inguinal Adenopathy Neurological: Cranial nerves II-XII grossly intact, Neuro grossly intact, Motor Exam 5/5 strength throughout Psych/Mental Status: Anxious, Flat Affect Laboratory Results 02/12/20 08:21: COVID-19 (ANDREW) Positive 02/12/20 08:25: WBC 5.5, RBC 5.18, Hgb 15.6 H, Hct 47.8 H, MCV 92.3, MCH 30.1, MCHC 32.6, RDW Std Deviation 47.0 H, RDW Coeff of Storm 13.6, Plt Count 224, MPV 9.5, Immature Gran % (Auto) 0.900, Neut % (Auto) 81.0 H, Lymph % (Auto) 9.8 L, [place] % (Auto) 8.1, Eos % (Auto) 0.0, Baso % (Auto) 0.2, Absolute Neuts (auto) 4.5, Absolute Lymphs (auto) 0.54 L, Nucleated RBC % 0, Differential Comment SCANNED 02/12/20 08:25: PT 13.1, INR 1.0, APTT 26.1 02/12/20 08:25: Sodium 134 L, Potassium 4.5, Chloride 105, Carbon Dioxide 15.0 L, Anion Gap 14, BUN 32 H, Creatinine 2.73 H, Estim Creat Clear Calc 18.21, Est GFR (MDRD) Af Amer 22 L, Est GFR (MDRD) Non-Af 18 L, BUN/Creatinine Ratio 11.7, Glucose 260 H, Calcium 9.1, Total Bilirubin 0.50, AST 126 H, ALT 85 H, Alkaline Phosphatase 122 H, Troponin I 3.170 H*, Total Protein 8.1, Albumin 3.8, Globulin 4.3 H, Albumin/Globulin Ratio 0.9 02/12/20 08:25: Lactic Acid 5.0 H* 02/12/20 08:25: CK Isoenzymes Cancelled, CK-MM (CK-3) Cancelled, CK-MB (CK-2) Cancelled, CK-BB (CK-1) Cancelled, CK Isoenzymes Interp Cancelled, Macro CK Cancelled, Macro CK Type I Cancelled, Macro CK Type II Cancelled 02/12/20 08:31: Specimen Type ART, Sample Site R Brach, pH 7.32 L, Bicarbonate Actual 13.5 L, Total CO2 14, Base Excess -13 L, O2 Saturation 93 L, ABG pCO2 26.1 L, ABG pO2 71 L, O2 Delivery Device Cannula, Liter Flow 3.0 02/12/20 08:39: Total Creatine Kinase 4846 H 02/12/20 08:51: Urine Color Yellow, Urine Clarity Cloudy, Urine pH 5.0, Ur Specific [place] 1.025, Urine Protein 100 H, Urine Glucose (UA) Normal, Urine Ketones Negative, Urine Occult Blood 250 H, Urine Nitrite Negative, Urine Bilirubin Negative, Urine Urobilinogen Normal, Ur Leukocyte Esterase Negative, Urine RBC 10-25 SEEN, Urine WBC 5-10 SEEN, Ur Squamous Epith Cells 0-5 SEEN, Amorphous Sediment 1+, Urine Bacteria 3+, Hyaline Casts 0-5 SEEN, Fine Granular Casts 0-5 SEEN, Urine Mucus 3+ 02/12/20 11:53: POC Glucose 133 H 02/12/20 14:00: Troponin I 6.060 H* 02/12/20 14:00: Lactic Acid 1.9 Current Medications Acetaminophen (Acetaminophen 325 Mg Tablet) 650 mg PO Q6H PRN PRN PRN Reason: Pain Score 1-10/Temp > 100.7 F Al Hydroxide/Mg Hydroxide (Mag Hydrox/Al Hydrox/Simeth 30 Ml Udc) 30 ml PO Q6H PRN PRN PRN Reason: Gastric Burning Albuterol Sulfate (Albuterol 2.5 Mg/3 Ml Vial.Neb.) 2.5 mg INHALATION Q2H PRN PRN PRN Reason: SOB/Wheezing Dextrose (Dextrose 50%-Water 25 Gm/50 Ml Disp.Syrin) 0 gm IV X1 PRN; Protocol PRN Reason: Hypoglycemia Glucagon (Glucagon 1 Mg/Ml Syringe) 1 mg IM .X1 PRN PRN Reason: Hypoglycemia Sodium Chloride () 1,000 mls @ 125 mls/hr IV .Q8H STEVE Last Admin: 02/12/20 14:20 Dose: 125 mls/hr Documented by: Insulin Human Lispro (Insulin Lispro 100 Unit/Ml Insuln.Pen) 0 unit SC ACHS STEVE; Protocol Last Admin: 02/12/20 11:59 Dose: Not Given Documented by: Ondansetron HCl (Ondansetron 4 Mg/2 Ml Vial) 4 mg IV Q8H PRN PRN PRN Reason: NAUSEA/VOMITING Psyllium Hydrophilic Mucilloid (Psyllium 1 Packet) 1 packet PO DAILY PRN PRN PRN Reason: Constipation Senna/Docusate Sodium (Senna/Docusate Sodium 1 Tablet) 2 tablet PO BID PRN PRN Reason: Constipation Sodium Chloride (0.9% Saline Lock 10 Ml Syringe) 10 - 40 ml IV UD PRN PRN Reason: SALINE FLUSH Clinical Impression(s) from Imaging Studies Chest X-Ray 02/12/20 09:05 IMPRESSION: No acute pulmonary process Electronically Signed: Henry Floyd MD at 12:29 EST , Service support , Assessment/Plan Active and Suspected Problems (Last Reviewed 01/05/20 @ 13:56 by Nadia Wu) Septic shock (Acute) Urinary tract infection (Acute) Elevated serum creatinine (Acute) Elevated troponin I level (Acute) COVID-19 virus infection (Acute) Sinus tachycardia by electrocardiogram (Acute) RECOMMENDATIONS: 1. Complete fluid boluses, but then hold on maintenance fluids 2. Agree with empiric antibiotics 3. Hold on remdesivir, convalescent serum and Decadron 4. Consider initiation of anticoagulation heparin for non-ST elevation [place] 5. Wean oxygen as tolerated 6. Initiate CPAP with sleep and supplemental oxygen as necessary IMPRESSIONS: 1. Septic shock secondary to probable UTI Patient received Unasyn and Zosyn in the ER. Patient likely okay with ceftriaxone, but defer to primary service. Patient did have a significant metabolic acidosis on presentation that may have led to a significant amount of the tachypnea noted. Exact etiology is unclear given limitations with memory and unclear onset. 2. Acute hypoxic respiratory insufficiency secondary to COVID-19/pulmonary hypertension Patient with minimal nasal cannula oxygen requirements at this time. Given patient's baseline mentation, it is unclear if she can provide informed consent for remdesivir and Decadron. Reasonable to initiate anticoagulation with Lovenox therapy. 3. Acute kidney injury secondary to mild rhabdomyolysis secondary to prolonged downtime Patient's baseline appears to be approximately 1.1-1.2. Presentation creatinine of 2.7 is significantly elevated. Patient has received significant volume resuscitation. However, would advise against high maintenance fluids as this has been demonstrated to worsen hypoxia with COVID-19. Recheck labs following boluses. CK levels are not high enough to suggest a need for a bicarbonate drip. 4. Non-ST elevation [place] Cardiology has been consulted. Heparin versus Lovenox for anticoagulation. No ST elevations are appreciated. Patient did have significant hypoxia with an unknown period of downtime. Unclear if this represents supply demand mismatch versus acute ischemic event. Await cardiology recommendations 5. Short-term memory issues/ANNIE/depression/hypertension/Mast's esophagus Complicates care, management, recovery and prognosis. Patient can likely be initiated on home CPAP settings with sleep. Patient should likely also be continued on a PPI given history of Mast's esophagus and anticoagulation. Other home medications can likely be reinitiated outside of hypertensives, which should be reinitiated in a stepwise fashion. Inpatient E&M: 11504 Init Hosp L3
--- NOTE | 2020-02-12 15:37 | ECHOL_ITS ---
Reason For Study: EVAL LV FUNCTION Procedure This was a limited 2D transthoracic echocardiogram. The study was technically difficult. Exam performed portable in ICU/CCU. The exam was abbreviated due to the COVID 19 protocol. Left Ventricle Normal LV size. Left ventricular systolic function is normal. The estimated ejection fraction is 60 %. No regional wall motion abnormalities noted. Right Ventricle Normal RV size. Normal systolic function. Pulmonic Valve The pulmonic valve is not well visualized. Great Vessels Normal aortic root. The pulmonary artery is normal size. Pericardium/Pleural No pericardial effusion. MMode/2D Measurements & Calculations LVIDd: 5.1 cm IVSd: 1.0 cm LAV(MOD-sp4): 34.2 ml LVIDs: 3.8 cm LVPWd: 1.0 cm FS: 24.2 % LA A4 area: 14.1 cm2 RA A4 area: 11.5 cm2 Interpretation Summary Normal LV size. Left ventricular systolic function is normal. The estimated ejection fraction is 60 %. Ordering Physician: Cherelle Abdalla Referring Physician: Allison Varela Performed By: Nadia Gorman, BRENT, RVT
--- NOTE | 2020-02-12 15:56 | CON.PCM_ITS ---
Problem List (1) Elevated troponin I level Status: Acute Reason for Consult Date of Consultation: 02/12/20 Reason for Consultation: Elevated troponin History of Present Illness: The patient is a 70 year old F was found in the residential on night got caught in the chair and could not get up. She was found to have rhabdomyolysis and admitted also with diagnoses of Covid 19. Patient denies any chest pain. She is very acidotic on admission. BNP was normal. Her cardiac history dates back to 2014 at that time she had cardiac catheterization and showed insignificant coronary artery disease. 2018 patient had normal echocardiogram. At the moment patient has stage IV renal insufficiency. This is new. She is known to have COPD, hypertension and obstructive sleep apnea with pulmonary hypertension.. [] Past Medical History Allergies/Adverse Reactions: Allergies adhesive tape Allergy (Mild, Verified 01/29/20 09:13) Rash Iodinated Contrast Media [Iodinated Contrast Media - IV Dye] Allergy (Verified 01/29/20 09:13) Hives latex Allergy (Verified 01/29/20 09:13) Itching Sulfa (Sulfonamide Antibiotics) Allergy (Verified 01/29/20 09:13) Hives Home Medications: Ambulatory Orders Medication Instructions Recorded Atorvastatin Calcium [Lipitor] 10 mg PO DAILY 03/09/15 Bupropion HCl [Wellbutrin Sr] 200 mg PO DAILY 03/09/15 Losartan Potassium [Cozaar] 50 mg PO DAILY 03/09/15 Oxybutynin Chloride [Ditropan Xl] 15 mg PO DAILY 03/09/15 Risperidone [Risperdal] 0.25 mg PO TID 03/09/15 Omeprazole [Prilosec] 20 mg PO DAILY 10/27/15 chlorhexidine gluconate 0.12 % 15 ml BUCCAL BID 04/05/17 mouthwash fluticasone propionate 50 2 spray INTRANASAL QDAY 04/05/17 mcg/actuation nasal spray,suspension umeclidinium 62.5 mcg-vilanterol 1 inh INHALATION Q24H #60 ea 04/30/18 25 mcg/actuation powdr for inhalation acetaminophen 325 mg tablet 325 mg PO Q6H PRN 08/12/18 albuterol sulfate 90 mcg/actuation 1 puff INHALATION Q6H PRN 08/12/18 aerosol inhaler bisacodyl 10 mg rectal suppository 10 mg RC DAILY PRN 08/12/18 calcium carbonate 200 mg calcium 200 mg PO BID tab 08/12/18 (500 mg) chewable tablet ondansetron HCl 4 mg tablet 4 mg PO BID-TID PRN 08/12/18 polyethylene glycol 3350 17 17 g PO DAILY 08/12/18 gram/dose oral powder terconazole 0.4 % vaginal cream 1 appful VAGINAL QHS PRN 08/12/18 triamcinolone acetonide 0.5 % 1 applic TOPICAL BID #15 g 08/12/18 topical cream diphenhydramine HCl 12.5 mg/5 mL 12.5 mg PO QHS PRN 11/05/19 oral elixir loperamide 2 mg capsule 2 mg PO Q6H PRN 11/05/19 melatonin 10 mg capsule 10 mg PO HS PRN 11/05/19 cetirizine 10 mg tablet 10 mg PO DAILY PRN tab 01/05/20 clonazepam 2 mg tablet 2 mg PO QHS tab 01/05/20 metformin 500 mg tablet 1,000 mg PO BID tab 01/05/20 sennosides 8.6 mg-docusate sodium 1 tab-cap PO DAILY tab 01/05/20 50 mg tablet Past Medical History (Chronic Problems): Chronic Problems (Last Reviewed 01/05/20 @ 13:56 by Nadia Wu) Mast esophagus (Chronic) Pulmonary hypertension (Chronic) ANNIE (obstructive sleep apnea) (Chronic) Obesity (Chronic) SOB (shortness of breath) (Chronic) Mitral stenosis with insufficiency (Chronic) Tricuspid valve disorder (Chronic) Depression (Chronic) HTN (hypertension) (Chronic) COPD (chronic obstructive pulmonary disease) (Chronic) Surgical History: noncontributory, - - gallbladder removed, 4 back surgeries. - *Family History Paternal Family History: Family History (Last Reviewed 01/05/20 @ 13:57 by Nadia Wu) Father Diabetes Mother Heart disease Diabetes History Items: Diabetes Lives: Senior Living Smoking Status: Former smoker Alcohol: None Drugs: None Review of Systems - Review of Systems General: Reports: Fatigue, Weakness Cardiovascular: Denies: Chest Discomfort Respiratory: Reports: Shortness of Breath Gastrointestinal: Denies: Hematemesis, Hematochezia, Melena Genitourinary: Denies: Dysuria, Hematuria Objective: Vital Signs Temp Pulse Resp BP Pulse Ox 97.4 F L 77 22 H 144/62 H 95 02/12/20 14:00 02/12/20 14:00 02/12/20 14:00 02/12/20 14:00 02/12/20 14:00 Oxygen Flow Rate (L/min) 3 Oxygen Delivery Method Nasal Cannula Weight: 239 lb 10.279 oz Body Mass Index (BMI) 38.7 Intake and Output for Last 24 Hours 02/10/20 02/11/20 02/12/20 23:59 23:59 23:59 Intake Total 1471 / 1471 Balance 1471 / 1471 Lungs: Clear to auscultation Cardiovascular: Regular Rhythm 02/12/20 08:25: WBC 5.5, RBC 5.18, Hgb 15.6 H, Hct 47.8 H, MCV 92.3, MCH 30.1, MCHC 32.6, Plt Count 224, MPV 9.5, Immature Gran % (Auto) 0.900, Neut % (Auto) 81.0 H, Lymph % (Auto) 9.8 L, [place] % (Auto) 8.1, Eos % (Auto) 0.0, Baso % (Auto) 0.2, Absolute Neuts (auto) 4.5, Nucleated RBC % 0 02/12/20 08:25: PT 13.1, INR 1.0, APTT 26.1 02/12/20 08:25: Sodium 134 L, Potassium 4.5, Chloride 105, Carbon Dioxide 15.0 L , Anion Gap 14, BUN 32 H, Creatinine 2.73 H, Est GFR (MDRD) Af Amer 22 L, Est GFR (MDRD) Non-Af 18 L, BUN/Creatinine Ratio 11.7, Glucose 260 H, Calcium 9.1, Total Bilirubin 0.50, Troponin I 3.170 H* 02/12/20 08:25: Lactic Acid 5.0 H* 02/12/20 08:25: CK Isoenzymes Cancelled, CK-MM (CK-3) Cancelled, CK-MB (CK-2) Cancelled, CK-BB (CK-1) Cancelled, CK Isoenzymes Interp Cancelled, Macro CK Cancelled 02/12/20 08:31: pH 7.32 L, Bicarbonate Actual 13.5 L, Base Excess -13 L, O2 Saturation 93 L, ABG pCO2 26.1 L, ABG pO2 71 L 02/12/20 08:51: Urine Color Yellow, Urine Clarity Cloudy, Urine pH 5.0, Ur Specific [place] 1.025, Urine Protein 100 H, Urine Glucose (UA) Normal, Urine Ketones Negative, Urine Occult Blood 250 H, Urine Nitrite Negative, Urine Bilirubin Negative, Urine Urobilinogen Normal, Ur Leukocyte Esterase Negative, Urine RBC 10-25 SEEN, Urine WBC 5-10 SEEN 02/12/20 14:00: Troponin I 6.060 H* 02/12/20 14:00: Lactic Acid 1.9 Rhythm: EKG: ECHO: Stress Test: Cardiac Cath: PCI: CT Surgery: Holter monitor: EPS: PPM: CXR: Chest CT Scan: Assessment/Plan This is a televisit because of the COVID-19. Patient denies any chest pain. EKG showed sinus tachycardia with no ischemic changes. Patient had normal cardiac catheterization 5 years ago. Patient had normal echocardiogram 2 years ago. Her elevated troponin and CPK are due to rhabdomyolysis. I agree with diagnosis and management. I would recommend IV hydration with normal saline and sodium bicarb. Echocardiogram should be ordered. At this point no further invasive cardiology procedure would be performed
[2020-02-12] MEDS: dexAMETHasone 4 MG Tablet 6 MG PO (18:21)
--- NOTE | 2020-02-12 18:28 | NURSING ---
Troponin I 6.060 at 15:06 on 02/12/2020. Lianne Villarreal notified via phone. Awaiting orders. New orders received. Continue to monitor patient for symptoms. See orders.
[2020-02-12 19:49] LABS: D-Dimer Quantitative (DVT/PE) 1.39 FEU/ug/m (0.27-0.49)
[2020-02-12] MEDS: Atorvastatin Calcium 40 MG Tablet PO (21:41)
[2020-02-12] MEDS: Acetaminophen 325 MG Tablet 650 MG PO (21:41)
[2020-02-13] VITALS (30 sets, daily range): BP systolic 112–186; BP diastolic 36–113; PULSE 70–102; RESP 12–35; TEMP 36.9–39.6; O2SAT 91–100
[2020-02-13 00:51] LABS: Bedside Glucose 75 mg/dL (70-110)
[2020-02-13] MEDS: Mag Hydrox/Al Hydrox/Simeth 30 ML UDC PO (01:34)
[2020-02-13] MEDS: Acetaminophen 325 MG Tablet 650 MG PO ×3 (05:30→18:19)
[2020-02-13 05:56] LABS: Absolute Lymphocyte Count 0.77 X10^3/uL (0.83-4.51); Absolute Neutrophil Count 3.3 X10^3/uL (2.0-7.7); Basophil# 0.01 X10^3/uL; Basophil% 0.2 % (0-1); Hematocrit 40.4 % (37-47); Hemoglobin 13.1 g/dL (12.0-15.0); Lymphocyte # 0.77 X10^3/ul (4.0); Lymphocyte % 17.4 % (19-41); Mean Corp Hgb Conc 32.4 g/dL (32-36); Mean Corpuscular Hgb 30.7 pg (27.0-32.0); Mean Corpuscular Volume 94.6 fL (81-99); Mean Platelet Vol. 9.9 fl (6.2-12.0); Monocyte# 0.31 X10^3/uL; NRBC Flagged by Analyzer 0 % (0-5); Neutrophil # 3.33 X10^3/uL (2.7-7.7); Neutrophil % 75.2 % (47-70); Platelet Count 151 K/mm3 (150-450); RBC Distribution Width CV 14.1 % (11.6-14.6); Red Blood Count 4.27 M/mm3 (4.2-5.4); White Blood Count 4.4 K/mm3 (4.4-11.0)
[2020-02-13 05:56] LABS: Bedside Glucose 87 mg/dL (70-110)
--- NOTE | 2020-02-13 06:35 | PN_ITS ---
Patient Problems: Active and Suspected Problems (Last Reviewed 01/05/20 @ 13:56 by Nadia Wu) Septic shock (Acute) Urinary tract infection (Acute) Elevated serum creatinine (Acute) Elevated troponin I level (Acute) COVID-19 virus infection (Acute) Sinus tachycardia by electrocardiogram (Acute) NSTEMI (non-ST elevated myocardial infarction) (Acute) Rhabdomyolysis (Acute) Reason for Visit: Follow-up on hypoxia/IGNACIA/Rhabdomyolysis/COVID-19 infection Subjective: Was seen and examined. She complains of generalized aches. She also stated that she cannot sleep. She is running a fever. Objective: Physical exam: General: Alert, Oriented x3, Cooperative, anxious, 3 L of oxygen HEENT: Atraumatic, PERRLA, EOMI, Normocephalic Oral: Dry Mucosa Neck: Supple Lungs: Diminished Cardiovascular: Regular rate, Regular Rhythm, Normal S1, Normal S2, No murmurs Abdomen: Bowel Sounds Present, Soft, Non Tender, Non-Distended, No Hepato- splenomegaly Extremities: Edema - bilateral trace, erythema to both knees/abrasions Skin: - - see under extremities Musculoskeletal: No Tenderness to Palpation of Joints or Extremities Lymphatic: No Cervical, Supraclavicular, or Inguinal Adenopathy Neurological: Cranial nerves II-XII grossly intact, Neuro grossly intact Psych/Mental Status: anxious Vitals/I&O's: Vital Signs Temp Pulse Resp BP Pulse Ox 102.5 F H 89 21 H 146/88 H 98 02/13/20 05:00 02/13/20 05:00 02/13/20 05:00 02/13/20 05:00 02/13/20 05:00 Oxygen Flow Rate (L/min) 3 Oxygen Delivery Method Nasal Cannula Weight: 109.1 kg Body Mass Index (BMI) 38.7 Intake and Output for Last 24 Hours 02/11/20 02/12/20 02/13/20 23:59 23:59 23:59 Intake Total 4101 / 4341 960 / 960 Output Total 100 / 1400 1700 / 1700 Balance 4001 / 2941 -740 / -740 Microbiology Past 72 Hours 02/12/20 20:30 Mucosa - Nose Respiratory Panel (PCR) - Final Laboratory Results 02/12/20 08:21: COVID-19 (ANDREW) Positive 02/12/20 08:25: WBC 5.5, RBC 5.18, Hgb 15.6 H, Hct 47.8 H, MCV 92.3, MCH 30.1, M CHC 32.6, RDW Std Deviation 47.0 H, RDW Coeff of Storm 13.6, Plt Count 224, MPV 9.5, Immature Gran % (Auto) 0.900, Neut % (Auto) 81.0 H, Lymph % (Auto) 9.8 L, [place] % (Auto) 8.1, Eos % (Auto) 0.0, Baso % (Auto) 0.2, Absolute Neuts (auto) 4.5, Absolute Lymphs (auto) 0.54 L, Nucleated RBC % 0, Differential Comment SCANNED 02/12/20 08:25: PT 13.1, INR 1.0, APTT 26.1 02/12/20 08:25: Sodium 134 L, Potassium 4.5, Chloride 105, Carbon Dioxide 15.0 L , Anion Gap 14, BUN 32 H, Creatinine 2.73 H, Estim Creat Clear Calc 18.21, Est GFR (MDRD) Af Amer 22 L, Est GFR (MDRD) Non-Af 18 L, BUN/Creatinine Ratio 11.7, Glucose 260 H, Calcium 9.1, Total Bilirubin 0.50, AST 126 H, ALT 85 H, Alkaline Phosphatase 122 H, Troponin I 3.170 H*, Total Protein 8.1, Albumin 3.8, Globulin 4.3 H, Albumin/Globulin Ratio 0.9 02/12/20 08:25: Lactic Acid 5.0 H* 02/12/20 08:25: CK Isoenzymes Cancelled, CK-MM (CK-3) Cancelled, CK-MB (CK-2) Cancelled, CK-BB (CK-1) Cancelled, CK Isoenzymes Interp Cancelled, Macro CK Cancelled, Macro CK Type I Cancelled, Macro CK Type II Cancelled 02/12/20 08:31: Specimen Type ART, Sample Site R Brach, pH 7.32 L, Bicarbonate Actual 13.5 L, Total CO2 14, Base Excess -13 L, O2 Saturation 93 L, ABG pCO2 26.1 L, ABG pO2 71 L, O2 Delivery Device Cannula, Liter Flow 3.0 02/12/20 08:39: Total Creatine Kinase 4846 H 02/12/20 08:51: Urine Color Yellow, Urine Clarity Cloudy, Urine pH 5.0, Ur Specific [place] 1.025, Urine Protein 100 H, Urine Glucose (UA) Normal, Urine Ketones Negative, Urine Occult Blood 250 H, Urine Nitrite Negative, Urine Bilirubin Negative, Urine Urobilinogen Normal, Ur Leukocyte Esterase Negative, Urine RBC 10-25 SEEN, Urine WBC 5-10 SEEN, Ur Squamous Epith Cells 0-5 SEEN, Amorphous Sediment 1+, Urine Bacteria 3+, Hyaline Casts 0-5 SEEN, Fine Granular Casts 0-5 SEEN, Urine Mucus 3+ 02/12/20 11:53: POC Glucose 133 H 02/12/20 14:00: Troponin I 6.060 H* 02/12/20 14:00: Lactic Acid 1.9 02/12/20 18:40: Troponin I 6.850 H* 02/12/20 18:40: D-Dimer Quant (PE/DVT) 1.39 H* 02/12/20 21:37: POC Glucose 75 02/13/20 04:55: WBC 4.4, RBC 4.27, Hgb 13.1, Hct 40.4, MCV 94.6, MCH 30.7, MCHC 32.4, RDW Std Deviation 49.0 H, RDW Coeff of Storm 14.1, Plt Count 151, MPV 9.9, Immature Gran % (Auto) 0.200, Neut % (Auto) 75.2 H, Lymph % (Auto) 17.4 L, [place] % (Auto) 7.0, Eos % (Auto) 0.0, Baso % (Auto) 0.2, Absolute Neuts (auto) 3.3, Absolute Lymphs (auto) 0.77 L, Nucleated RBC % 0 02/13/20 04:55: Sodium Pending, Potassium Pending, Chloride Pending, Carbon Dioxide Pending, Anion Gap Pending, BUN Pending, Creatinine Pending, Est GFR (MDRD) Af Amer Pending, Est GFR (MDRD) Non-Af Pending, BUN/Creatinine Ratio Pending, Glucose Pending, Calcium Pending, Total Bilirubin Pending, AST Pending, ALT Pending, Alkaline Phosphatase Pending, Total Creatine Kinase Pending, Total Protein Pending, Albumin Pending 11/28/20 05:36: POC Glucose 87 Current Medications Acetaminophen (Acetaminophen 325 Mg Tablet) 650 mg PO Q6H PRN PRN PRN Reason: Pain Score 1-10/Temp > 100.7 F Last Admin: 02/13/20 05:30 Dose: 650 mg Documented by: Al Hydroxide/Mg Hydroxide (Mag Hydrox/Al Hydrox/Simeth 30 Ml Udc) 30 ml PO Q6H PRN PRN PRN Reason: Gastric Burning Last Admin: 02/13/20 01:34 Dose: 30 ml Documented by: Albuterol Sulfate (Albuterol 2.5 Mg/3 Ml Vial.Neb.) 2.5 mg INHALATION Q2H PRN PRN PRN Reason: SOB/Wheezing Aspirin (Aspirin 81 Mg Tab.Chew) 81 mg PO DAILY@0800 [facility] Atorvastatin Calcium (Atorvastatin Calcium 40 Mg Tablet) 40 mg PO QHS [facility] Last Admin: 02/12/20 21:41 Dose: 40 mg Documented by: Dexamethasone (Dexamethasone 4 Mg Tablet) 6 mg PO DAILY [facility] Last Admin: 02/12/20 18:21 Dose: 6 mg Documented by: Dextrose (Dextrose 50%-Water 25 Gm/50 Ml Disp.Syrin) 0 gm IV X1 PRN; Protocol PRN Reason: Hypoglycemia Enoxaparin Sodium (Enoxaparin 30 Mg/0.3 Ml Syringe) 30 mg SC DAILY [facility] Famotidine (Famotidine 20 Mg Tablet) 20 mg PO DAILY [facility] Glucagon (Glucagon 1 Mg/Ml Syringe) 1 mg IM .X1 PRN PRN Reason: Hypoglycemia Sodium Chloride () 1,000 mls @ 125 mls/hr IV .Q8H [facility] Last Admin: 02/12/20 22:20 Dose: 125 mls/hr Documented by: Ceftriaxone Sodium 2 gm/ (Sodium Chloride) 50 mls @ 100 mls/hr IV Q24 [facility] Last Infusion: 02/12/20 17:00 Dose: Infused Documented by: Influenza Virus Vaccine Quadrival (Influenza Vaccine (6mos+)/Pf 0.5 Ml Syringe) 0.5 ml IM .ONCE ONE Stop: 02/13/20 10:01 Insulin Human Lispro (Insulin Lispro 100 Unit/Ml Insuln.Pen) 0 unit SC ACHS [facility]; Protocol Last Admin: 02/13/20 05:41 Dose: Not Given Documented by: Nystatin (Nystatin Powder 15gm Bottle) 1 applic TOPICAL BID STEVE; Protocol Ondansetron HCl (Ondansetron 4 Mg/2 Ml Vial) 4 mg IV Q8H PRN PRN PRN Reason: NAUSEA/VOMITING Psyllium Hydrophilic Mucilloid (Psyllium 1 Packet) 1 packet PO DAILY PRN PRN PRN Reason: Constipation Senna/Docusate Sodium (Senna/Docusate Sodium 1 Tablet) 2 tablet PO BID PRN PRN Reason: Constipation Sodium Chloride (0.9% Saline Lock 10 Ml Syringe) 10 - 40 ml IV UD PRN PRN Reason: SALINE FLUSH STROKE Vital Signs/Narrative: Vital Signs Temp Pulse Resp BP Pulse Ox 02/13/20 05:00 102.5 F H 89 21 H 146/88 H 98 02/13/20 02:59 78 Medical Necessity - Tobacco Use Smoking Status: Former smoker Assessment/Plan All Active Problems (Last Reviewed 01/05/20 @ 13:56 by Nadia Wu) Septic shock (Acute) Urinary tract infection (Acute) Elevated serum creatinine (Acute) Elevated troponin I level (Acute) COVID-19 virus infection (Acute) Sinus tachycardia by electrocardiogram (Acute) NSTEMI (non-ST elevated myocardial infarction) (Acute) Rhabdomyolysis (Acute) Screening for malignant neoplasm of intestine (Acute) History of left heart catheterization (Resolved) Hypoxemia (Acute) Dyspnea (Acute) Sinusitis (Acute) Diverticulitis (Acute) 1. Acute hypoxic respiratory sufficient secondary to acute COVID-19 infection Patient remains on 3 L of oxygen Continue with breathing treatments, encourage use of incentive spirometer. Wean off oxygen for SPO2 more than 94% 2. Acute COVID-19 infection with hypoxia Chest x-ray shows no infiltrate Continue on dexamethasone. Would not start on remdesivir on account of IGNACIA Pulmonology consulted 3. Acute NSTEMI likely secondary to rhabdomyolysis/demand ischemia History of CAD, admitting EKG shows no acute ST-T changes Troponin trended to 6.850 Cardiology consulted, continue on aspirin, statin, carvedilol, 2d-echo 4. IGNACIA, prerenal secondary to dehydration versus rhabdomyolysis Baseline creatinine around 1.1, admitted creatinine 2.73, Cr today is 1.99 Continue on IV fluids, repeat blood work in a.m. 5. Lactic acidosis likely secondary to hypoxia, resolved 6. Acute rhabdomyolysis, secondary to fall and being on her knees the whole night Admitting CKs 4846, CK now 37, 861 Will trend in a.m., continue IV fluids 7. Bilateral knee cellulitis from bilateral knee abrasion from prolonged stay on her knees abrasion, Continue with IV ceftriaxone 8. ANNIE on CPAP 9. Hypertension - was initially uncontrolled; better controlled on carvedilol and hydralazine as needed. We will continue to hold losartan 10. Type II DM, BS are controlled, continue to hold Metformin, continue blood glucose checks and sliding scale 11. DVT prophylaxis with heparin subcu Inpatient E&M: 57843 Subs Hosp L3
[2020-02-13 07:11] LABS: ALB/GLOB Ratio 0.8 RATIO (0.9-2.4); AST(SGOT) 760 U/L (15-37); Alanine Aminotransfer ALT/SGPT 150 U/L (13-56); Albumin, Serum 2.8 g/dL (3.2-5.0); Alkaline Phosphatase 86 U/L (45-117); Anion Gap 9 (5-15); BUN 29 mg/dL (7-18); BUN/Creat Ratio 14.6 RATIO (10-20); CPK Total, Creatine Kinase 37861 U/L (26-192); Calcium,Total 7.7 mg/dL (8.5-10.1); Chloride 110 mmol/L (98-107); Creatinine, Serum 1.99 mg/dL (0.55-1.02); EST Glomerular Filtration Rate 26 mL/min (>60); Est Glom Filt Rate - Afr Amer 32 mL/min (>60); Estimated Creatinine Clearance 24.98 ml/min; Globulin 3.6 g/dL (2.2-4.2); Glucose 103 mg/dL (74-106); Potassium 3.7 mmol/L (3.5-5.1); Protein, Total 6.4 g/dL (6.4-8.2); Sodium Level 139 mmol/L (136-145)
--- NOTE | 2020-02-13 07:37 | PN_ITS ---
Subjective: Patient did okay overnight. Patient did have some urinary retention, so attempt Scott was placed this morning. Resulting temperature was noted to be 102.6 ?F. Patient was flushed, but has remained hemodynamically stable. Patient continues to have short-term memory issues and simply states that she does not feel good. Per nursing, patient has reported that she needs to have a bowel movement several times, but is not passing flatus. General: Alert, Cooperative, No apparent distress, - - Speaking in full sentence s. No conversational dyspnea. Appears flushed. HEENT: Atraumatic, PERRLA, EOMI, Normocephalic, - - No scleral icterus or injection noted Oral: Moist Mucosa, No Gingival or Mucosal Lesions/ Ulcerations Neck: Supple, No JVD, No Nodes, Trachea Midline Lungs: No rhonchi, No wheeze, No rales, Diminished, - - Fair effort Cardiovascular: Regular rate, Regular Rhythm, Normal S1, Normal S2, No murmurs, No rub noted, No Gallop Abdomen: Bowel Sounds Present, Soft, Non Tender, Non-Distended, Obese Extremities: No clubbing, No cyanosis, Edema Skin: - - Slight serous development bilateral knees Musculoskeletal: Tenderness - Palpation of the knees and generalized muscle palpation Lymphatic: No Cervical, Supraclavicular, or Inguinal Adenopathy Neurological: Cranial nerves II-XII grossly intact, Neuro grossly intact, Motor Exam 5/5 strength throughout Psych/Mental Status: Anxious, Flat Affect Vital Signs Temp Pulse Resp BP Pulse Ox 39.2 C H 88 29 H 156/59 H 96 02/13/20 06:00 02/13/20 06:00 02/13/20 06:00 02/13/20 06:00 02/13/20 07:28 Oxygen Flow Rate (L/min) 3 Oxygen Delivery Method Nasal Cannula Weight: 109.1 kg Body Mass Index (BMI) 38.7 Intake and Output for Last 24 Hours 02/11/20 02/12/20 02/13/20 23:59 23:59 23:59 Intake Total 4101 / 4341 960 / 960 Output Total 100 / 1400 1700 / 1700 Balance 4001 / 2941 -740 / -740 Labs (Last 48 Hours) 02/12/20 02/12/20 02/12/20 08:21 08:25 08:25 WBC 5.5 RBC 5.18 Hgb 15.6 H Hct 47.8 H MCV 92.3 MCH 30.1 MCHC 32.6 RDW Std Deviation 47.0 H RDW Coeff of Storm 13.6 Plt Count 224 MPV 9.5 Immature Gran % (Auto) 0.900 Neut % (Auto) 81.0 H Lymph % (Auto) 9.8 L Angelina % (Auto) 8.1 Eos % (Auto) 0.0 Baso % (Auto) 0.2 Absolute Neuts (auto) 4.5 Absolute Lymphs (auto) 0.54 L Nucleated RBC % 0 Differential Comment SCANNED PT 13.1 INR 1.0 APTT 26.1 D-Dimer Quant (PE/DVT) Specimen Type Sample Site pH Bicarbonate Actual Total CO2 Base Excess O2 Saturation ABG pCO2 ABG pO2 O2 Delivery Device Liter Flow Sodium Potassium Chloride Carbon Dioxide Anion Gap BUN Creatinine Estim Creat Clear Calc Est GFR (MDRD) Af Amer Est GFR (MDRD) Non-Af BUN/Creatinine Ratio Glucose Lactic Acid Calcium Total Bilirubin AST ALT Alkaline Phosphatase Total Creatine Kinase CK Isoenzymes CK-MM (CK-3) CK-MB (CK-2) CK-BB (CK-1) CK Isoenzymes Interp Macro CK Macro CK Type I Macro CK Type II Troponin I Total Protein Albumin Globulin Albumin/Globulin Ratio Urine Color Urine Clarity Urine pH Ur Specific [place] Urine Protein Urine Glucose (UA) Urine Ketones Urine Occult Blood Urine Nitrite Urine Bilirubin Urine Urobilinogen Ur Leukocyte Esterase Urine RBC Urine WBC Ur Squamous Epith Cells Amorphous Sediment Urine Bacteria Hyaline Casts Fine Granular Casts Urine Mucus COVID-19 (ANDREW) Positive POC Glucose 02/12/20 02/12/20 02/12/20 08:25 08:25 08:25 WBC RBC Hgb Hct MCV MCH MCHC RDW Std Deviation RDW Coeff of Storm Plt Count MPV Immature Gran % (Auto) Neut % (Auto) Lymph % (Auto) Angelina % (Auto) Eos % (Auto) Baso % (Auto) Absolute Neuts (auto) Absolute Lymphs (auto) Nucleated RBC % Differential Comment PT INR APTT D-Dimer Quant (PE/DVT) Specimen Type Sample Site pH Bicarbonate Actual Total CO2 Base Excess O2 Saturation ABG pCO2 ABG pO2 O2 Delivery Device Liter Flow Sodium 134 L Potassium 4.5 Chloride 105 Carbon Dioxide 15.0 L Anion Gap 14 BUN 32 H Creatinine 2.73 H Estim Creat Clear Calc 18.21 Est GFR (MDRD) Af Amer 22 L Est GFR (MDRD) Non-Af 18 L BUN/Creatinine Ratio 11.7 Glucose 260 H Lactic Acid 5.0 H* Calcium 9.1 Total Bilirubin 0.50 AST 126 H ALT 85 H Alkaline Phosphatase 122 H Total Creatine Kinase CK Isoenzymes Cancelled CK-MM (CK-3) Cancelled CK-MB (CK-2) Cancelled CK-BB (CK-1) Cancelled CK Isoenzymes Interp Cancelled Macro CK Cancelled Macro CK Type I Cancelled Macro CK Type II Cancelled Troponin I 3.170 H* Total Protein 8.1 Albumin 3.8 Globulin 4.3 H Albumin/Globulin Ratio 0.9 Urine Color Urine Clarity Urine pH Ur Specific [place] Urine Protein Urine Glucose (UA) Urine Ketones Urine Occult Blood Urine Nitrite Urine Bilirubin Urine Urobilinogen Ur Leukocyte Esterase Urine RBC Urine WBC Ur Squamous Epith Cells Amorphous Sediment Urine Bacteria Hyaline Casts Fine Granular Casts Urine Mucus COVID-19 (ANDREW) POC Glucose 02/12/20 02/12/20 02/12/20 08:31 08:39 08:51 WBC RBC Hgb Hct MCV MCH MCHC RDW Std Deviation RDW Coeff of Storm Plt Count MPV Immature Gran % (Auto) Neut % (Auto) Lymph % (Auto) Angelina % (Auto) Eos % (Auto) Baso % (Auto) Absolute Neuts (auto) Absolute Lymphs (auto) Nucleated RBC % Differential Comment PT INR APTT D-Dimer Quant (PE/DVT) Specimen Type ART Sample Site R Brach pH 7.32 L Bicarbonate Actual 13.5 L Total CO2 14 Base Excess -13 L O2 Saturation 93 L ABG pCO2 26.1 L ABG pO2 71 L O2 Delivery Device Cannula Liter Flow 3.0 Sodium Potassium Chloride Carbon Dioxide Anion Gap BUN Creatinine Estim Creat Clear Calc Est GFR (MDRD) Af Amer Est GFR (MDRD) Non-Af BUN/Creatinine Ratio Glucose Lactic Acid Calcium Total Bilirubin AST ALT Alkaline Phosphatase Total Creatine Kinase 4846 H CK Isoenzymes CK-MM (CK-3) CK-MB (CK-2) CK-BB (CK-1) CK Isoenzymes Interp Macro CK Macro CK Type I Macro CK Type II Troponin I Total Protein Albumin Globulin Albumin/Globulin Ratio Urine Color Yellow Urine Clarity Cloudy Urine pH 5.0 Ur Specific [place] 1.025 Urine Protein 100 H Urine Glucose (UA) Normal Urine Ketones Negative Urine Occult Blood 250 H Urine Nitrite Negative Urine Bilirubin Negative Urine Urobilinogen Normal Ur Leukocyte Esterase Negative Urine RBC 10-25 SEEN Urine WBC 5-10 SEEN Ur Squamous Epith Cells 0-5 SEEN Amorphous Sediment 1+ Urine Bacteria 3+ Hyaline Casts 0-5 SEEN Fine Granular Casts 0-5 SEEN Urine Mucus 3+ COVID-19 (ANDREW) POC Glucose 02/12/20 02/12/20 02/12/20 11:53 14:00 14:00 WBC RBC Hgb Hct MCV MCH MCHC RDW Std Deviation RDW Coeff of Storm Plt Count MPV Immature Gran % (Auto) Neut % (Auto) Lymph % (Auto) Angelina % (Auto) Eos % (Auto) Baso % (Auto) Absolute Neuts (auto) Absolute Lymphs (auto) Nucleated RBC % Differential Comment PT INR APTT D-Dimer Quant (PE/DVT) Specimen Type Sample Site pH Bicarbonate Actual Total CO2 Base Excess O2 Saturation ABG pCO2 ABG pO2 O2 Delivery Device Liter Flow Sodium Potassium Chloride Carbon Dioxide Anion Gap BUN Creatinine Estim Creat Clear Calc Est GFR (MDRD) Af Amer Est GFR (MDRD) Non-Af BUN/Creatinine Ratio Glucose Lactic Acid 1.9 Calcium Total Bilirubin AST ALT Alkaline Phosphatase Total Creatine Kinase CK Isoenzymes CK-MM (CK-3) CK-MB (CK-2) CK-BB (CK-1) CK Isoenzymes Interp Macro CK Macro CK Type I Macro CK Type II Troponin I 6.060 H* Total Protein Albumin Globulin Albumin/Globulin Ratio Urine Color Urine Clarity Urine pH Ur Specific [place] Urine Protein Urine Glucose (UA) Urine Ketones Urine Occult Blood Urine Nitrite Urine Bilirubin Urine Urobilinogen Ur Leukocyte Esterase Urine RBC Urine WBC Ur Squamous Epith Cells Amorphous Sediment Urine Bacteria Hyaline Casts Fine Granular Casts Urine Mucus COVID-19 (ANDREW) POC Glucose 133 H 02/12/20 02/12/20 02/12/20 18:40 18:40 21:37 WBC RBC Hgb Hct MCV MCH MCHC RDW Std Deviation RDW Coeff of Storm Plt Count MPV Immature Gran % (Auto) Neut % (Auto) Lymph % (Auto) Angelina % (Auto) Eos % (Auto) Baso % (Auto) Absolute Neuts (auto) Absolute Lymphs (auto) Nucleated RBC % Differential Comment PT INR APTT D-Dimer Quant (PE/DVT) 1.39 H* Specimen Type Sample Site pH Bicarbonate Actual Total CO2 Base Excess O2 Saturation ABG pCO2 ABG pO2 O2 Delivery Device Liter Flow Sodium Potassium Chloride Carbon Dioxide Anion Gap BUN Creatinine Estim Creat Clear Calc Est GFR (MDRD) Af Amer Est GFR (MDRD) Non-Af BUN/Creatinine Ratio Glucose Lactic Acid Calcium Total Bilirubin AST ALT Alkaline Phosphatase Total Creatine Kinase CK Isoenzymes CK-MM (CK-3) CK-MB (CK-2) CK-BB (CK-1) CK Isoenzymes Interp Macro CK Macro CK Type I Macro CK Type II Troponin I 6.850 H* Total Protein Albumin Globulin Albumin/Globulin Ratio Urine Color Urine Clarity Urine pH Ur Specific [place] Urine Protein Urine Glucose (UA) Urine Ketones Urine Occult Blood Urine Nitrite Urine Bilirubin Urine Urobilinogen Ur Leukocyte Esterase Urine RBC Urine WBC Ur Squamous Epith Cells Amorphous Sediment Urine Bacteria Hyaline Casts Fine Granular Casts Urine Mucus COVID-19 (ANDREW) POC Glucose 75 02/13/20 02/13/20 02/13/20 04:55 04:55 05:36 WBC 4.4 RBC 4.27 Hgb 13.1 Hct 40.4 MCV 94.6 MCH 30.7 MCHC 32.4 RDW Std Deviation 49.0 H RDW Coeff of Storm 14.1 Plt Count 151 MPV 9.9 Immature Gran % (Auto) 0.200 Neut % (Auto) 75.2 H Lymph % (Auto) 17.4 L Angelina % (Auto) 7.0 Eos % (Auto) 0.0 Baso % (Auto) 0.2 Absolute Neuts (auto) 3.3 Absolute Lymphs (auto) 0.77 L Nucleated RBC % 0 Differential Comment PT INR APTT D-Dimer Quant (PE/DVT) Specimen Type Sample Site pH Bicarbonate Actual Total CO2 Base Excess O2 Saturation ABG pCO2 ABG pO2 O2 Delivery Device Liter Flow Sodium 139 Potassium 3.7 Chloride 110 H Carbon Dioxide 20.0 L Anion Gap 9 BUN 29 H Creatinine 1.99 H Estim Creat Clear Calc 24.98 Est GFR (MDRD) Af Amer 32 L Est GFR (MDRD) Non-Af 26 L BUN/Creatinine Ratio 14.6 Glucose 103 Lactic Acid Calcium 7.7 L Total Bilirubin 0.30 AST 760 H ALT 150 H Alkaline Phosphatase 86 Total Creatine Kinase 81162 H CK Isoenzymes CK-MM (CK-3) CK-MB (CK-2) CK-BB (CK-1) CK Isoenzymes Interp Macro CK Macro CK Type I Macro CK Type II Troponin I Total Protein 6.4 Albumin 2.8 L Globulin 3.6 Albumin/Globulin Ratio 0.8 L Urine Color Urine Clarity Urine pH Ur Specific [place] Urine Protein Urine Glucose (UA) Urine Ketones Urine Occult Blood Urine Nitrite Urine Bilirubin Urine Urobilinogen Ur Leukocyte Esterase Urine RBC Urine WBC Ur Squamous Epith Cells Amorphous Sediment Urine Bacteria Hyaline Casts Fine Granular Casts Urine Mucus COVID-19 (ANDREW) POC Glucose 87 Microbiology 02/12/20 20:30 Mucosa - Nose Respiratory Panel (PCR) - Final Clinical Impression(s) from Imaging Studies Chest X-Ray 02/12/20 09:05 IMPRESSION: No acute pulmonary process Electronically Signed: Henry Floyd MD at 12:29 EST , Service support , Medical Necessity - Tobacco Use Smoking Status: Former smoker Assessment/Plan All Active Problems (Last Reviewed 01/05/20 @ 13:56 by Nadia uW) Septic shock (Acute) Urinary tract infection (Acute) Elevated serum creatinine (Acute) Elevated troponin I level (Acute) COVID-19 virus infection (Acute) Sinus tachycardia by electrocardiogram (Acute) NSTEMI (non-ST elevated myocardial infarction) (Acute) Rhabdomyolysis (Acute) Screening for malignant neoplasm of intestine (Acute) History of left heart catheterization (Resolved) Hypoxemia (Acute) Dyspnea (Acute) Sinusitis (Acute) Diverticulitis (Acute) RECOMMENDATIONS: 1. Continue fluid at current levels 2. Agree with empiric antibiotics 3. Hold on remdesivir, convalescent serum. Okay to do Decadron 4. Consider initiation of anticoagulation heparin for non-ST elevation VT. Defer to cardiology 5. Wean oxygen as tolerated 6. Initiate CPAP with sleep with supplemental oxygen as necessary IMPRESSIONS: 1. Septic shock secondary to probable UTI Patient received Unasyn and Zosyn in the ER. Patient likely okay with ceftriaxone pending culture data. Patient did have a significant metabolic acidosis on presentation that may have led to a significant amount of the tachypnea noted. Exact etiology is unclear given limitations with memory and unclear onset. Significant fever has been noted since basement of core temp monitoring, but it is unclear if this is secondary to COVID-19 versus UTI 2. Acute hypoxic respiratory insufficiency secondary to COVID-19/pulmonary hypertension Patient with minimal nasal cannula oxygen requirements at this time. Given patient's baseline mentation, it is unclear if she can provide informed consent for remdesivir. Decadron and Lovenox would be considered standard therapies without special permission requirements. Fluid may exacerbate hypoxia, but given CK levels that are elevated it is reasonable to continue fluids at current level. 3. Acute kidney injury secondary to mild rhabdomyolysis secondary to prolonged downtime Improving. Patient's baseline appears to be approximately 1.1-1.2. Presentation creatinine of 2.7 is significantly elevated. Patient has received significant volume resuscitation. Would not recommend a bicarbonate drip at this time. Urine output has remained stable. 4. Non-ST elevation VT Cardiology has been consulted. Heparin versus Lovenox for anticoagulation. No ST elevations are appreciated. Patient did have significant hypoxia with an unknown period of downtime. Unclear if this represents supply demand mismatch versus acute ischemic event. Defer to cardiology on level of anticoagulation 5. Short-term memory issues/ANNIE/depression/hypertension/Mast's esophagus Complicates care, management, recovery and prognosis. Patient can likely be initiated on home CPAP settings with sleep. Patient should likely also be on a PPI given history of Mast's esophagus and systemic anticoagulation. Other home medications can likely be reinitiated outside of hypertensives, which should be reinitiated in a stepwise fashion. Inpatient E&M: [id number] [place] [id number]
[2020-02-13] MEDS: 0.9% Normal Saline 1,000 ML 150 ML IV ×3 (08:29→22:17)
[2020-02-13] MEDS: Famotidine 20 MG Tablet PO (08:35)
[2020-02-13] MEDS: Enoxaparin 30 MG/0.3 ML Syringe SC (08:36)
[2020-02-13] MEDS: dexAMETHasone 4 MG Tablet 6 MG PO (08:36)
[2020-02-13] MEDS: Aspirin 81 MG TAB.CHEW PO (08:37)
[2020-02-13] MEDS: Nystatin Powder 15gm Bottle 1 APPLIC TOPICAL ×2 (08:37→22:30)
--- NOTE | 2020-02-13 10:00 | NURSING ---
pt placed on cooling blanket
[2020-02-13 12:31] LABS: Bedside Glucose 173 mg/dL (70-110)
[2020-02-13] MEDS: Carvedilol 12.5 MG Tablet PO ×2 (14:03→22:07)
[2020-02-13 18:00] LABS: Bedside Glucose 110 mg/dL (70-110)
[2020-02-13] MEDS: Atorvastatin Calcium 40 MG Tablet PO (22:09)
[2020-02-13] MEDS: Menthol/Lanolin/Calamine/Znox 113 GM Tube 1 APPLIC TOPICAL (22:10)
--- NOTE | 2020-02-13 22:15 | EKG12_ITS ---
Test Reason : RESP DISTRESS Blood Pressure : / mmHG Vent. Rate : 093 BPM Atrial Rate : 093 BPM P-R Int : 158 ms QRS Dur : 072 ms QT Int : 354 ms P-R-T Axes : 089 076 074 degrees QTc Int : 440 ms Normal sinus rhythm Nonspecific ST abnormality Abnormal ECG Confirmed by AMOR MORGAN, BRIAN ([id number]), general expeditor TRACEY QUISPE ([id number]) on 02/17/2020 9:57:30 AM Referred By: CALDERON Confirmed By:BRIAN CHINCHILLA MD
--- NOTE | 2020-02-13 22:15 | RAD_ITS ---
STUDY: X-RAY CHEST REASON FOR EXAM: Female, 70 years old. Shortness of breath, cough, positive COVID. TECHNIQUE: AP portable upright COMPARISON: 02/12/2020 FINDINGS: Interval development of multifocal bilateral groundglass opacities compatible with COVID pneumonia. No apparent pneumothorax or pleural effusion. Heart size normal. No concerning mediastinal or hilar lesions. Atherosclerosis of the thoracic aorta. No acute osseous abnormality. No evidence of free air under the diaphragm. RAD/Chest 1 View (Portable) IMPRESSION: Interval development of multifocal bilateral groundglass opacities compatible with COVID pneumonia. Electronically Signed: Des Gonzalez, at 0:38 EST Tel , Service support ,
[2020-02-13] MEDS: LORazepam 2 MG/ML Syringe 1 MG IV (22:37)
[2020-02-13] MEDS: Albuterol 2.5 MG/3 ML VIAL.NEB. INHALATION (22:40)
--- NOTE | 2020-02-13 22:40 | CPS ---
switched to BIPAP mode for respiratory distress
--- NOTE | 2020-02-13 22:45 | NURSING ---
pt. became very sob labored breathing tachypnic on 3L pale cyanotic but refusing to use bipap due to anxiety. Dr. espinal notified of pt. condition. That patient was very wheezy and received breathing treatments. notified of pt. temp 103. new orders received
--- NOTE | 2020-02-13 23:25 | RAD_ITS ---
STUDY: RADIOGRAPH- ABDOMEN/PELVIS REASON FOR EXAM: Female, 70 years old. ABDOMEN PAIN. TECHNIQUE: KUB COMPARISON: 10/27/2015 CT abdomen and pelvis. FINDINGS: No evidence of free air or bowel obstruction. Hepatomegaly again demonstrated. No acute osseous abnormality. Catheter in the pelvis probably a BURTON catheter. RAD/Abdomen Single View IMPRESSION: No acute findings. Electronically Signed: Des Gonzalez, at 0:40 EST Tel , Service support ,
[2020-02-13] MEDS: Morphine 2 MG/ML Syringe IV (23:45)
[2020-02-13] MEDS: Furosemide 40 MG/4 ML Vial IV (23:45)
[2020-02-14] VITALS (36 sets, daily range): BP systolic 68–150; BP diastolic 18–96; PULSE 50–115; RESP 12–94; TEMP 37–39.6; O2SAT 91–100
[2020-02-14] MEDS: Acetaminophen 325 MG Tablet 650 MG PO ×3 (00:36→17:24)
[2020-02-14 01:36] LABS: Bedside Glucose 112 mg/dL (70-110)
[2020-02-14] MEDS: Albuterol 2.5 MG/3 ML VIAL.NEB. INHALATION ×3 (03:50→09:56)
[2020-02-14 06:26] LABS: Absolute Lymphocyte Count 1.16 X10^3/uL (0.83-4.51); Basophil# 0.02 X10^3/uL; Basophil% 0.3 % (0-1); Eosinophil# 0.15 X10^3/uL; Eosinophils% 2.6 % (0-5); Hematocrit 43.3 % (37-47); Hemoglobin 13.9 g/dL (12.0-15.0); Lymphocyte # 1.16 X10^3/ul (4.0); Lymphocyte % 20.2 % (19-41); Mean Corp Hgb Conc 32.1 g/dL (32-36); Mean Corpuscular Hgb 30.3 pg (27.0-32.0); Mean Corpuscular Volume 94.5 fL (81-99); Mean Platelet Vol. 10.2 fl (6.2-12.0); Monocyte# 0.34 X10^3/uL; Monocyte% 5.9 % (0-10); NRBC Flagged by Analyzer 0 % (0-5); Neutrophil # 4.04 X10^3/uL (2.7-7.7); Neutrophil % 70.3 % (47-70); Platelet Count 170 K/mm3 (150-450); RBC Distribution Width SD 48.9 fl (35.1-43.9); Red Blood Count 4.58 M/mm3 (4.2-5.4); White Blood Count 5.8 K/mm3 (4.4-11.0)
[2020-02-14 06:50] LABS: ALB/GLOB Ratio 0.7 RATIO (0.9-2.4); AST(SGOT) 551 U/L (15-37); Alanine Aminotransfer ALT/SGPT 143 U/L (13-56); Albumin, Serum 2.6 g/dL (3.2-5.0); Alkaline Phosphatase 82 U/L (45-117); Anion Gap 7 (5-15); BUN 27 mg/dL (7-18); BUN/Creat Ratio 14.1 RATIO (10-20); Calcium,Total 7.5 mg/dL (8.5-10.1); Chloride 112 mmol/L (98-107); Creatinine, Serum 1.91 mg/dL (0.55-1.02); EST Glomerular Filtration Rate 28 mL/min (>60); Est Glom Filt Rate - Afr Amer 34 mL/min (>60); Estimated Creatinine Clearance 26.02 ml/min; Globulin 3.7 g/dL (2.2-4.2); Glucose 133 mg/dL (74-106); Potassium 4.7 mmol/L (3.5-5.1); Protein, Total 6.3 g/dL (6.4-8.2); Sodium Level 139 mmol/L (136-145)
[2020-02-14 07:06] LABS: Base Excess -10 mmol/L (-2 to +2); Bicarbonate 16.1 mmol/L (22-26); Blood Gas Specimen Type ART; FI02 40; Mode AC; O2 Delivery Device BiPAP; PEEP 6; PO2 55 mmHG (75-100); SITE L Brach; SO2 85 % (95-99); Total Carbon Dioxide 17 mmol/L; pCO2 33.2 mmHg (35-45)
--- NOTE | 2020-02-14 07:23 | PN_ITS ---
Patient Problems: Active and Suspected Problems (Last Reviewed 01/05/20 @ 13:56 by Nadia Wu) Septic shock (Acute) Urinary tract infection (Acute) Elevated serum creatinine (Acute) Elevated troponin I level (Acute) COVID-19 virus infection (Acute) Sinus tachycardia by electrocardiogram (Acute) NSTEMI (non-ST elevated myocardial infarction) (Acute) Rhabdomyolysis (Acute) Reason for Visit: Follow-up on hypoxia/IGNACIA/Rhabdomyolysis/COVID-19 infection Subjective: Patient was seen and examined. Overnight, patient went into respiratory distress. Currently on BiPAP. Her blood pressures are also low. Started on low-dose Levophed peripherally. Institutional Asset Manager discussed with patient's guardian who changed CODE STATUS to DNR CC. Family is agreeable to hospice. Objective: Physical exam: General: Alert, Oriented x3, Cooperative, anxious,on bipap HEENT: Atraumatic, PERRLA, EOMI, Normocephalic Oral: Dry Mucosa Neck: Supple Lungs: Diminished Cardiovascular: Regular rate, Regular Rhythm, Normal S1, Normal S2, No murmurs Abdomen: Bowel Sounds Present, Soft, Non Tender, Non-Distended, No Hepato- splenomegaly Extremities: Edema - bilateral trace, erythema to both knees/abrasions Skin: - - see under extremities Musculoskeletal: No Tenderness to Palpation of Joints or Extremities Lymphatic: No Cervical, Supraclavicular, or Inguinal Adenopathy Neurological: Cranial nerves II-XII grossly intact, Neuro grossly intact Psych/Mental Status: anxious Vitals/I&O's: Vital Signs Temp Pulse Resp BP Pulse Ox 101.2 F H 73 29 H 105/91 H 98 02/14/20 02:00 02/14/20 07:07 02/14/20 07:07 02/14/20 03:00 02/14/20 07:07 Oxygen Flow Rate (L/min) 3 Oxygen Delivery Method Bi-pap Weight: 109.1 kg Body Mass Index (BMI) 38.7 Intake and Output for Last 24 Hours 02/12/20 02/13/20 02/14/20 23:59 23:59 23:59 Intake Total 4101 / 4341 4950 / 4950 Output Total 100 / 1400 3480 / 4130 650 / 650 Balance 4001 / 2941 1470 / 820 -650 / -650 Microbiology Past 72 Hours 02/12/20 08:51 Urine, Catheterized Urine Culture - Preliminary Culture exhibits no growth. 02/12/20 20:30 Mucosa - Nose Respiratory Panel (PCR) - Final Laboratory Results 02/13/20 12:16: POC Glucose 173 H 02/13/20 16:28: POC Glucose 110 02/13/20 22:04: POC Glucose 112 H 02/14/20 06:00: WBC 5.8, RBC 4.58, Hgb 13.9, Hct 43.3, MCV 94.5, MCH 30.3, MCHC 32.1, RDW Std Deviation 48.9 H, RDW Coeff of Storm 14.0, Plt Count 170, MPV 10.2, Immature Gran % (Auto) 0.700, Neut % (Auto) 70.3 H, Lymph % (Auto) 20.2, [place] % (Auto) 5.9, Eos % (Auto) 2.6, Baso % (Auto) 0.3, Absolute Neuts (auto) 4.0, Ab solute Lymphs (auto) 1.16, Nucleated RBC % 0 02/14/20 06:00: Sodium 139, Potassium 4.7, Chloride 112 H, Carbon Dioxide 20.0 L , Anion Gap 7, BUN 27 H, Creatinine 1.91 H, Estim Creat Clear Calc 26.02, Est GFR (MDRD) Af Amer 34 L, Est GFR (MDRD) Non-Af 28 L, BUN/Creatinine Ratio 14.1, Glucose 133 H, Calcium 7.5 L, Total Bilirubin 0.20, AST 551 H, ALT 143 H, Alkaline Phosphatase 82, Total Protein 6.3 L, Albumin 2.6 L, Globulin 3.7, Albumin/Globulin Ratio 0.7 L 02/14/20 06:59: Specimen Type ART, Sample Site L Brach, pH 7.30 L, Bicarbonate Actual 16.1 L, Total CO2 17, Base Excess -10 L, O2 Saturation 85 L, O2 % 40, ABG pCO2 33.2 L, ABG pO2 55 L, O2 Delivery Device BiPAP, Vent Mode AC, POC PEEP 6 Current Medications Acetaminophen (Acetaminophen 325 Mg Tablet) 650 mg PO Q6H PRN PRN PRN Reason: Pain Score 1-10/Temp > 100.7 F Last Admin: 02/14/20 00:36 Dose: 650 mg Documented by: Al Hydroxide/Mg Hydroxide (Mag Hydrox/Al Hydrox/Simeth 30 Ml Udc) 30 ml PO Q6H PRN PRN PRN Reason: Gastric Burning Last Admin: 02/13/20 01:34 Dose: 30 ml Documented by: Albuterol Sulfate (Albuterol 2.5 Mg/3 Ml Vial.Neb.) 2.5 mg INHALATION Q2H PRN PRN PRN Reason: SOB/Wheezing Last Admin: 02/13/20 22:40 Dose: 2.5 mg Documented by: Albuterol Sulfate (Albuterol 2.5 Mg/3 Ml Vial.Neb.) 2.5 mg INHALATION Q4H.RT [facility] Last Admin: 02/14/20 07:06 Dose: 2.5 mg Documented by: Aspirin (Aspirin 81 Mg Tab.Chew) 81 mg PO DAILY@0800 [facility] Last Admin: 02/13/20 08:37 Dose: 81 mg Documented by: Atorvastatin Calcium (Atorvastatin Calcium 40 Mg Tablet) 40 mg PO QHS [facility] Last Admin: 02/13/20 22:09 Dose: 40 mg Documented by: Calamine/Phenol (Menthol/Lanolin/Calamine/Znox 113 Gm Tube) 1 applic TOPICAL BID [facility]; Protocol Last Admin: 02/13/20 22:10 Dose: 1 applicatio Documented by: Carvedilol (Carvedilol 12.5 Mg Tablet) 12.5 mg PO BID [facility] Last Admin: 02/13/20 22:07 Dose: 12.5 mg Documented by: Dexamethasone (Dexamethasone 4 Mg Tablet) 6 mg PO DAILY [facility] Last Admin: 02/13/20 08:36 Dose: 6 mg Documented by: Dextrose (Dextrose 50%-Water 25 Gm/50 Ml Disp.Syrin) 0 gm IV X1 PRN; Protocol PRN Reason: Hypoglycemia Enoxaparin Sodium (Enoxaparin 30 Mg/0.3 Ml Syringe) 30 mg SC DAILY [facility] Last Admin: 02/13/20 08:36 Dose: 30 mg Documented by: Famotidine (Famotidine 20 Mg Tablet) 20 mg PO DAILY [facility] Last Admin: 02/13/20 08:35 Dose: 20 mg Documented by: Glucagon (Glucagon 1 Mg/Ml Syringe) 1 mg IM .X1 PRN PRN Reason: Hypoglycemia Hydralazine HCl (Hydralazine 20 Mg/Ml Vial) 10 mg IV Q6H PRN PRN PRN Reason: BLOOD PRESSURE Ceftriaxone Sodium 2 gm/ (Sodium Chloride) 50 mls @ 100 mls/hr IV Q24 [facility] Last Infusion: 02/13/20 14:30 Dose: Infused Documented by: Dexmedetomidine HCl 400 mcg/ (Sodium Chloride) 100 mls @ 13.638 mls/hr CONT INF .Q7H20M [facility]; Protocol Insulin Human Lispro (Insulin Lispro 100 Unit/Ml Insuln.Pen) 0 unit SC ACHS [facility]; Protocol Last Admin: 02/13/20 22:11 Dose: Not Given Documented by: Nystatin (Nystatin Powder 15gm Bottle) 1 applic TOPICAL BID [facility]; Protocol Last Admin: 02/13/20 22:30 Dose: 1 applicatio Documented by: Ondansetron HCl (Ondansetron 4 Mg/2 Ml Vial) 4 mg IV Q8H PRN PRN PRN Reason: NAUSEA/VOMITING Psyllium Hydrophilic Mucilloid (Psyllium 1 Packet) 1 packet PO DAILY PRN PRN PRN Reason: Constipation Senna/Docusate Sodium (Senna/Docusate Sodium 1 Tablet) 2 tablet PO BID PRN PRN Reason: Constipation Sodium Chloride (0.9% Saline Lock 10 Ml Syringe) 10 - 40 ml IV UD PRN PRN Reason: SALINE FLUSH STROKE Vital Signs/Narrative: Vital Signs Pulse Resp Pulse Ox 02/14/20 07:07 72 29 H 98 02/14/20 04:00 50 L 20 H 98 02/14/20 03:50 50 L 18 98 Medical Necessity - Tobacco Use Smoking Status: Former smoker Assessment/Plan All Active Problems (Last Reviewed 01/05/20 @ 13:56 by Nadia Wu) Septic shock (Acute) Urinary tract infection (Acute) Elevated serum creatinine (Acute) Elevated troponin I level (Acute) COVID-19 virus infection (Acute) Sinus tachycardia by electrocardiogram (Acute) NSTEMI (non-ST elevated myocardial infarction) (Acute) Rhabdomyolysis (Acute) Screening for malignant neoplasm of intestine (Acute) History of left heart catheterization (Resolved) Hypoxemia (Acute) Dyspnea (Acute) Sinusitis (Acute) Diverticulitis (Acute) 1. Acute hypoxic respiratory failure secondary to acute COVID-19 infection, worsening Now on Bipap 16/8, Fi02 50% Repeat chest x-ray confirms worsening Patient's CODE STATUS is a DNR CC; family is agreeable to hospice Comfort care measures to be started in the hospital as patient might not be stable for transport Continue with breathing treatments, morphine and Ativan as needed 2. Acute COVID-19 infection with hypoxia Management as above 3. Hypotension, patient's blood pressure dropped, antihypertensives on hold Started on low dose Levophed 4. Acute NSTEMI likely secondary to rhabdomyolysis/demand ischemia History of CAD, admitting EKG shows no acute ST-T changes 2D echo shows EF of 60%. Troponin trended to 6.850 Cardiology consulted, Will hold off aspirin, statin, carvedilol as patient has deteriorated 5. IGNACIA, prerenal secondary to dehydration versus rhabdomyolysis Baseline creatinine around 1.1, admitted creatinine 2.73, Cr today is 1.91 Continue on IV fluids 6. Lactic acidosis likely secondary to hypoxia, resolved 7. Acute rhabdomyolysis, secondary to fall and being on her knees the whole night Admitting CKs 4846, CK now 18,638 from 37,861 Will trend in a.m, continue IV fluids 8. Bilateral knee cellulitis from bilateral knee abrasion from prolonged stay on her knees abrasion, 9. ANNIE on CPAP 10. Type II DM, BS are controlled, continue to hold Metformin 11. Disposition: Hospice I received a call from patient's legal guardian, Cristal Bañuelos, who had talked to Dr. Serna at the earlier on. She agreed to making patient DNR CC. We talked about patient's care ongoing. She is agreeable to morphine and Ativan per hospice orders. She is agreeable to hospice consult. She is also agreeable to moving patient to inpatient hospice if needed and stable. She knows that she is unstable now and may pass in ICU. Time spent discussing CODE STATUS 25 minutes Inpatient E&M: 77234 Subs Hosp L3 Procedures: 61403 Advncd Care Plan addl 30 Min
--- NOTE | 2020-02-14 08:26 | PCM.PN.INT ---
Subjective: Patient with significant difficulties overnight. Oxygenation status has continued to deteriorate and patient has been placed on BiPAP. Patient was transiently on Precedex, but this had to be discontinued secondary to hypotension. Chest x-ray was obtained showing progressive bilateral infiltrates. Patient was conversational on my arrival, but did have increased work of breathing. Objective: After ABG was reviewed, it was determined that this was more consistent with a VBG, but did show significant acidosis. BiPAP settings were increased to 16/8. General: Alert, Cooperative, - - Mild dyssynchrony with the BiPAP noted. HEENT: Atraumatic, PERRLA, EOMI, Normocephalic, - - Scleral injection noted. Oral: No Gingival or Mucosal Lesions/ Ulcerations, Dry Mucosa Neck: Supple, No JVD, No Nodes, Trachea Midline Lungs: No rhonchi, No wheeze, No rales, Diminished, - - Symmetric expansion Cardiovascular: Regular rate, Regular Rhythm, Normal S1, Normal S2, No murmurs, No rub noted, No Gallop Abdomen: Bowel Sounds Present, Soft, Non Tender, Distended - Slightly, Obese Extremities: No clubbing, No cyanosis, Edema Skin: - - No change compared to previous Musculoskeletal: No Tenderness to Palpation of Joints or Extremities Lymphatic: No Cervical, Supraclavicular, or Inguinal Adenopathy Neurological: Cranial nerves II-XII grossly intact, Neuro grossly intact, Motor Exam 5/5 strength throughout Psych/Mental Status: Anxious, Impulsive, Restless Vital Signs Temp Pulse Resp BP Pulse Ox 37.3 C H 73 29 H 132/56 H 98 02/14/20 07:00 02/14/20 07:07 02/14/20 07:07 02/14/20 07:00 02/14/20 07:07 Oxygen Flow Rate (L/min) 3 Oxygen Delivery Method Bi-pap Weight: 109.1 kg Body Mass Index (BMI) 38.7 Intake and Output for Last 24 Hours 02/12/20 02/13/20 02/14/20 23:59 23:59 23:59 Intake Total 4101 / 4341 4950 / 4950 1100 / 1100 Output Total 100 / 1400 3480 / 4130 1000 / 1000 Balance 4001 / 2941 1470 / 820 100 / 100 Labs (Last 48 Hours) 02/12/20 02/12/20 02/12/20 08:21 08:25 08:25 WBC 5.5 RBC 5.18 Hgb 15.6 H Hct 47.8 H MCV 92.3 MCH 30.1 MCHC 32.6 RDW Std Deviation 47.0 H RDW Coeff of Storm 13.6 Plt Count 224 MPV 9.5 Immature Gran % (Auto) 0.900 Neut % (Auto) 81.0 H Lymph % (Auto) 9.8 L [place] % (Auto) 8.1 Eos % (Auto) 0.0 Baso % (Auto) 0.2 Absolute Neuts (auto) 4.5 Absolute Lymphs (auto) 0.54 L Nucleated RBC % 0 Differential Comment SCANNED PT 13.1 INR 1.0 APTT 26.1 D-Dimer Quant (PE/DVT) Specimen Type Sample Site pH Bicarbonate Actual Total CO2 Base Excess O2 Saturation O2 % ABG pCO2 ABG pO2 O2 Delivery Device Liter Flow Vent Mode POC PEEP Sodium Potassium Chloride Carbon Dioxide Anion Gap BUN Creatinine Estim Creat Clear Calc Est GFR (MDRD) Af Amer Est GFR (MDRD) Non-Af BUN/Creatinine Ratio Glucose Lactic Acid Calcium Total Bilirubin AST ALT Alkaline Phosphatase Total Creatine Kinase CK Isoenzymes CK-MM (CK-3) CK-MB (CK-2) CK-BB (CK-1) CK Isoenzymes Interp Macro CK Macro CK Type I Macro CK Type II Troponin I Total Protein Albumin Globulin Albumin/Globulin Ratio Urine Color Urine Clarity Urine pH Ur Specific [place] Urine Protein Urine Glucose (UA) Urine Ketones Urine Occult Blood Urine Nitrite Urine Bilirubin Urine Urobilinogen Ur Leukocyte Esterase Urine RBC Urine WBC Ur Squamous Epith Cells Amorphous Sediment Urine Bacteria Hyaline Casts Fine Granular Casts Urine Mucus COVID-19 (ANDREW) Positive POC Glucose 02/12/20 02/12/20 02/12/20 08:25 08:25 08:25 WBC RBC Hgb Hct MCV MCH MCHC RDW Std Deviation RDW Coeff of Storm Plt Count MPV Immature Gran % (Auto) Neut % (Auto) Lymph % (Auto) [place] % (Auto) Eos % (Auto) Baso % (Auto) Absolute Neuts (auto) Absolute Lymphs (auto) Nucleated RBC % Differential Comment PT INR APTT D-Dimer Quant (PE/DVT) Specimen Type Sample Site pH Bicarbonate Actual Total CO2 Base Excess O2 Saturation O2 % ABG pCO2 ABG pO2 O2 Delivery Device Liter Flow Vent Mode POC PEEP Sodium 134 L Potassium 4.5 Chloride 105 Carbon Dioxide 15.0 L Anion Gap 14 BUN 32 H Creatinine 2.73 H Estim Creat Clear Calc 18.21 Est GFR (MDRD) Af Amer 22 L Est GFR (MDRD) Non-Af 18 L BUN/Creatinine Ratio 11.7 Glucose 260 H Lactic Acid 5.0 H* Calcium 9.1 Total Bilirubin 0.50 AST 126 H ALT 85 H Alkaline Phosphatase 122 H Total Creatine Kinase CK Isoenzymes Cancelled CK-MM (CK-3) Cancelled CK-MB (CK-2) Cancelled CK-BB (CK-1) Cancelled CK Isoenzymes Interp Cancelled Macro CK Cancelled Macro CK Type I Cancelled Macro CK Type II Cancelled Troponin I 3.170 H* Total Protein 8.1 Albumin 3.8 Globulin 4.3 H Albumin/Globulin Ratio 0.9 Urine Color Urine Clarity Urine pH Ur Specific [place] Urine Protein Urine Glucose (UA) Urine Ketones Urine Occult Blood Urine Nitrite Urine Bilirubin Urine Urobilinogen Ur Leukocyte Esterase Urine RBC Urine WBC Ur Squamous Epith Cells Amorphous Sediment Urine Bacteria Hyaline Casts Fine Granular Casts Urine Mucus COVID-19 (ANDREW) POC Glucose 02/12/20 02/12/20 02/12/20 08:31 08:39 08:51 WBC RBC Hgb Hct MCV MCH MCHC RDW Std Deviation RDW Coeff of Storm Plt Count MPV Immature Gran % (Auto) Neut % (Auto) Lymph % (Auto) [place] % (Auto) Eos % (Auto) Baso % (Auto) Absolute Neuts (auto) Absolute Lymphs (auto) Nucleated RBC % Differential Comment PT INR APTT D-Dimer Quant (PE/DVT) Specimen Type ART Sample Site R Brach pH 7.32 L Bicarbonate Actual 13.5 L Total CO2 14 Base Excess -13 L O2 Saturation 93 L O2 % ABG pCO2 26.1 L ABG pO2 71 L O2 Delivery Device Cannula Liter Flow 3.0 Vent Mode POC PEEP Sodium Potassium Chloride Carbon Dioxide Anion Gap BUN Creatinine Estim Creat Clear Calc Est GFR (MDRD) Af Amer Est GFR (MDRD) Non-Af BUN/Creatinine Ratio Glucose Lactic Acid Calcium Total Bilirubin AST ALT Alkaline Phosphatase Total Creatine Kinase 4846 H CK Isoenzymes CK-MM (CK-3) CK-MB (CK-2) CK-BB (CK-1) CK Isoenzymes Interp Macro CK Macro CK Type I Macro CK Type II Troponin I Total Protein Albumin Globulin Albumin/Globulin Ratio Urine Color Yellow Urine Clarity Cloudy Urine pH 5.0 Ur Specific [place] 1.025 Urine Protein 100 H Urine Glucose (UA) Normal Urine Ketones Negative Urine Occult Blood 250 H Urine Nitrite Negative Urine Bilirubin Negative Urine Urobilinogen Normal Ur Leukocyte Esterase Negative Urine RBC 10-25 SEEN Urine WBC 5-10 SEEN Ur Squamous Epith Cells 0-5 SEEN Amorphous Sediment 1+ Urine Bacteria 3+ Hyaline Casts 0-5 SEEN Fine Granular Casts 0-5 SEEN Urine Mucus 3+ COVID-19 (ANDREW) POC Glucose 02/12/20 02/12/20 02/12/20 11:53 14:00 14:00 WBC RBC Hgb Hct MCV MCH MCHC RDW Std Deviation RDW Coeff of Storm Plt Count MPV Immature Gran % (Auto) Neut % (Auto) Lymph % (Auto) [place] % (Auto) Eos % (Auto) Baso % (Auto) Absolute Neuts (auto) Absolute Lymphs (auto) Nucleated RBC % Differential Comment PT INR APTT D-Dimer Quant (PE/DVT) Specimen Type Sample Site pH Bicarbonate Actual Total CO2 Base Excess O2 Saturation O2 % ABG pCO2 ABG pO2 O2 Delivery Device Liter Flow Vent Mode POC PEEP Sodium Potassium Chloride Carbon Dioxide Anion Gap BUN Creatinine Estim Creat Clear Calc Est GFR (MDRD) Af Amer Est GFR (MDRD) Non-Af BUN/Creatinine Ratio Glucose Lactic Acid 1.9 Calcium Total Bilirubin AST ALT Alkaline Phosphatase Total Creatine Kinase CK Isoenzymes CK-MM (CK-3) CK-MB (CK-2) CK-BB (CK-1) CK Isoenzymes Interp Macro CK Macro CK Type I Macro CK Type II Troponin I 6.060 H* Total Protein Albumin Globulin Albumin/Globulin Ratio Urine Color Urine Clarity Urine pH Ur Specific [place] Urine Protein Urine Glucose (UA) Urine Ketones Urine Occult Blood Urine Nitrite Urine Bilirubin Urine Urobilinogen Ur Leukocyte Esterase Urine RBC Urine WBC Ur Squamous Epith Cells Amorphous Sediment Urine Bacteria Hyaline Casts Fine Granular Casts Urine Mucus COVID-19 (ANDREW) POC Glucose 133 H 02/12/20 02/12/20 02/12/20 18:40 18:40 21:37 WBC RBC Hgb Hct MCV MCH MCHC RDW Std Deviation RDW Coeff of Storm Plt Count MPV Immature Gran % (Auto) Neut % (Auto) Lymph % (Auto) [place] % (Auto) Eos % (Auto) Baso % (Auto) Absolute Neuts (auto) Absolute Lymphs (auto) Nucleated RBC % Differential Comment PT INR APTT D-Dimer Quant (PE/DVT) 1.39 H* Specimen Type Sample Site pH Bicarbonate Actual Total CO2 Base Excess O2 Saturation O2 % ABG pCO2 ABG pO2 O2 Delivery Device Liter Flow Vent Mode POC PEEP Sodium Potassium Chloride Carbon Dioxide Anion Gap BUN Creatinine Estim Creat Clear Calc Est GFR (MDRD) Af Amer Est GFR (MDRD) Non-Af BUN/Creatinine Ratio Glucose Lactic Acid Calcium Total Bilirubin AST ALT Alkaline Phosphatase Total Creatine Kinase CK Isoenzymes CK-MM (CK-3) CK-MB (CK-2) CK-BB (CK-1) CK Isoenzymes Interp Macro CK Macro CK Type I Macro CK Type II Troponin I 6.850 H* Total Protein Albumin Globulin Albumin/Globulin Ratio Urine Color Urine Clarity Urine pH Ur Specific [place] Urine Protein Urine Glucose (UA) Urine Ketones Urine Occult Blood Urine Nitrite Urine Bilirubin Urine Urobilinogen Ur Leukocyte Esterase Urine RBC Urine WBC Ur Squamous Epith Cells Amorphous Sediment Urine Bacteria Hyaline Casts Fine Granular Casts Urine Mucus COVID-19 (ANDREW) POC Glucose 75 02/13/20 02/13/20 02/13/20 04:55 04:55 05:36 WBC 4.4 RBC 4.27 Hgb 13.1 Hct 40.4 MCV 94.6 MCH 30.7 MCHC 32.4 RDW Std Deviation 49.0 H RDW Coeff of Storm 14.1 Plt Count 151 MPV 9.9 Immature Gran % (Auto) 0.200 Neut % (Auto) 75.2 H Lymph % (Auto) 17.4 L [place] % (Auto) 7.0 Eos % (Auto) 0.0 Baso % (Auto) 0.2 Absolute Neuts (auto) 3.3 Absolute Lymphs (auto) 0.77 L Nucleated RBC % 0 Differential Comment PT INR APTT D-Dimer Quant (PE/DVT) Specimen Type Sample Site pH Bicarbonate Actual Total CO2 Base Excess O2 Saturation O2 % ABG pCO2 ABG pO2 O2 Delivery Device Liter Flow Vent Mode POC PEEP Sodium 139 Potassium 3.7 Chloride 110 H Carbon Dioxide 20.0 L Anion Gap 9 BUN 29 H Creatinine 1.99 H Estim Creat Clear Calc 24.98 Est GFR (MDRD) Af Amer 32 L Est GFR (MDRD) Non-Af 26 L BUN/Creatinine Ratio 14.6 Glucose 103 Lactic Acid Calcium 7.7 L Total Bilirubin 0.30 AST 760 H ALT 150 H Alkaline Phosphatase 86 Total Creatine Kinase 10453 H CK Isoenzymes CK-MM (CK-3) CK-MB (CK-2) CK-BB (CK-1) CK Isoenzymes Interp Macro CK Macro CK Type I Macro CK Type II Troponin I Total Protein 6.4 Albumin 2.8 L Globulin 3.6 Albumin/Globulin Ratio 0.8 L Urine Color Urine Clarity Urine pH Ur Specific [place] Urine Protein Urine Glucose (UA) Urine Ketones Urine Occult Blood Urine Nitrite Urine Bilirubin Urine Urobilinogen Ur Leukocyte Esterase Urine RBC Urine WBC Ur Squamous Epith Cells Amorphous Sediment Urine Bacteria Hyaline Casts Fine Granular Casts Urine Mucus COVID-19 (ANDREW) POC Glucose 87 02/13/20 02/13/20 02/13/20 12:16 16:28 22:04 WBC RBC Hgb Hct MCV MCH MCHC RDW Std Deviation RDW Coeff of Storm Plt Count MPV Immature Gran % (Auto) Neut % (Auto) Lymph % (Auto) [place] % (Auto) Eos % (Auto) Baso % (Auto) Absolute Neuts (auto) Absolute Lymphs (auto) Nucleated RBC % Differential Comment PT INR APTT D-Dimer Quant (PE/DVT) Specimen Type Sample Site pH Bicarbonate Actual Total CO2 Base Excess O2 Saturation O2 % ABG pCO2 ABG pO2 O2 Delivery Device Liter Flow Vent Mode POC PEEP Sodium Potassium Chloride Carbon Dioxide Anion Gap BUN Creatinine Estim Creat Clear Calc Est GFR (MDRD) Af Amer Est GFR (MDRD) Non-Af BUN/Creatinine Ratio Glucose Lactic Acid Calcium Total Bilirubin AST ALT Alkaline Phosphatase Total Creatine Kinase CK Isoenzymes CK-MM (CK-3) CK-MB (CK-2) CK-BB (CK-1) CK Isoenzymes Interp Macro CK Macro CK Type I Macro CK Type II Troponin I Total Protein Albumin Globulin Albumin/Globulin Ratio Urine Color Urine Clarity Urine pH Ur Specific [place] Urine Protein Urine Glucose (UA) Urine Ketones Urine Occult Blood Urine Nitrite Urine Bilirubin Urine Urobilinogen Ur Leukocyte Esterase Urine RBC Urine WBC Ur Squamous Epith Cells Amorphous Sediment Urine Bacteria Hyaline Casts Fine Granular Casts Urine Mucus COVID-19 (ANDREW) POC Glucose 173 H 110 112 H 02/14/20 02/14/20 02/14/20 06:00 06:00 06:59 WBC 5.8 RBC 4.58 Hgb 13.9 Hct 43.3 MCV 94.5 MCH 30.3 MCHC 32.1 RDW Std Deviation 48.9 H RDW Coeff of Storm 14.0 Plt Count 170 MPV 10.2 Immature Gran % (Auto) 0.700 Neut % (Auto) 70.3 H Lymph % (Auto) 20.2 [place] % (Auto) 5.9 Eos % (Auto) 2.6 Baso % (Auto) 0.3 Absolute Neuts (auto) 4.0 Absolute Lymphs (auto) 1.16 Nucleated RBC % 0 Differential Comment PT INR APTT D-Dimer Quant (PE/DVT) Specimen Type ART Sample Site L Brach pH 7.30 L Bicarbonate Actual 16.1 L Total CO2 17 Base Excess -10 L O2 Saturation 85 L O2 % 40 ABG pCO2 33.2 L ABG pO2 55 L O2 Delivery Device BiPAP Liter Flow Vent Mode AC POC PEEP 6 Sodium 139 Potassium 4.7 Chloride 112 H Carbon Dioxide 20.0 L Anion Gap 7 BUN 27 H Creatinine 1.91 H Estim Creat Clear Calc 26.02 Est GFR (MDRD) Af Amer 34 L Est GFR (MDRD) Non-Af 28 L BUN/Creatinine Ratio 14.1 Glucose 133 H Lactic Acid Calcium 7.5 L Total Bilirubin 0.20 AST 551 H ALT 143 H Alkaline Phosphatase 82 Total Creatine Kinase CK Isoenzymes CK-MM (CK-3) CK-MB (CK-2) CK-BB (CK-1) CK Isoenzymes Interp Macro CK Macro CK Type I Macro CK Type II Troponin I Total Protein 6.3 L Albumin 2.6 L Globulin 3.7 Albumin/Globulin Ratio 0.7 L Urine Color Urine Clarity Urine pH Ur Specific [place] Urine Protein Urine Glucose (UA) Urine Ketones Urine Occult Blood Urine Nitrite Urine Bilirubin Urine Urobilinogen Ur Leukocyte Esterase Urine RBC Urine WBC Ur Squamous Epith Cells Amorphous Sediment Urine Bacteria Hyaline Casts Fine Granular Casts Urine Mucus COVID-19 (ANDREW) POC Glucose Microbiology 02/12/20 08:51 Urine, Catheterized Urine Culture - Final Culture exhibits no growth. 02/12/20 20:30 Mucosa - Nose Respiratory Panel (PCR) - Final Clinical Impression(s) from Imaging Studies Chest X-Ray 02/13/20 22:15 IMPRESSION: Interval development of multifocal bilateral groundglass opacities compatible with COVID pneumonia. Electronically Signed: Des Gonzalez, at 0:38 EST Tel , Service support , KUB X-Ray 02/13/20 23:25 IMPRESSION: No acute findings. Electronically Signed: Des Gonzalez, at 0:40 EST Tel , Service support , Medical Necessity - Tobacco Use Smoking Status: Former smoker Assessment/Plan All Active Problems (Last Reviewed 01/05/20 @ 13:56 by Nadia Wu) Septic shock (Acute) Urinary tract infection (Acute) Elevated serum creatinine (Acute) Elevated troponin I level (Acute) COVID-19 virus infection (Acute) Sinus tachycardia by electrocardiogram (Acute) NSTEMI (non-ST elevated myocardial infarction) (Acute) Rhabdomyolysis (Acute) Screening for malignant neoplasm of intestine (Acute) History of left heart catheterization (Resolved) Hypoxemia (Acute) Dyspnea (Acute) Sinusitis (Acute) Diverticulitis (Acute) RECOMMENDATIONS: 1. Await response to change in BiPAP settings 2. Agree with empiric antibiotics 3. Hold on remdesivir, convalescent serum. Okay to do Decadron 4. Need to confirm CODE STATUS with POA 5. Continue BiPAP for now 6. Possible need for intubation and access IMPRESSIONS: 1. Septic shock secondary to probable UTI Patient received Unasyn and Zosyn in the ER. Patient likely okay with ceftriaxone pending culture data. Patient did have a significant metabolic acidosis on presentation that may have led to a significant amount of the tachypnea noted. Exact etiology is unclear given limitations with memory and unclear onset. Urine culture is negative. Patient has developed bilateral patchy infiltrates. Significant concern that this represents a progression of COVID-19. Cannot exclude a superinfection, so we will continue with empiric antibiotics for now. 2. Acute hypoxic respiratory insufficiency secondary to COVID-19/pulmonary hypertension Patient with rapidly worsening oxygenation status over the last 24 hours. Patient is also developed bilateral infiltrates and has persisted and high fevers. Clinical suspicion that deterioration is secondary to COVID-19, but onset of symptoms is unclear at this time. BiPAP has been increased, but if respiratory status does not improve, intubation will have to be entertained. Given baseline status, will have to check with POA prior to escalation of therapy unless patient has an acute event. Concomitant PE cannot be excluded as patient has not been on full dose anticoagulation. 3. Acute kidney injury secondary to mild rhabdomyolysis secondary to prolonged downtime Stable. Patient's baseline appears to be approximately 1.1-1.2. Presentation creatinine of 2.7 is significantly elevated. Patient has received significant volume resuscitation. IV fluids have been held secondary to problem #2. We will continue to monitor. We will need to determine whether patient would be open to hemodialysis, but has no indication for renal replacement therapy at this time. 4. Non-ST elevation [facility] has been consulted. Heparin versus Lovenox for anticoagulation. No ST elevations are appreciated. Patient did have significant hypoxia with an unknown period of downtime. Unclear if this represents supply demand mismatch versus acute ischemic event. Patient may require interventions, so would hold on systemic anticoagulation for now. 5. Short-term memory issues/ANNIE/depression/hypertension/Mast's esophagus Complicates care, management, recovery and prognosis. Patient can likely be initiated on home CPAP settings with sleep. Patient should likely also be on a PPI given history of Mast's esophagus and systemic anticoagulation. Other home medications can likely be reinitiated outside of hypertensives, which should be reinitiated in a stepwise fashion. Addendum 10:07 AM: Spoke with Roque about goals of therapy. There was discussion as patient may be made a DNR Comfort Care arrest without intubation, but this cannot be confirmed over the phone. They wanted to speak to each other independently before a decision was made. They did request the patient be continued on current interventions until goals of therapy could be verified. Total discussion time of 20 minutes between both phone conversations TIME: 80 minutes critical care time has been spent addressing septic shock, hypoxic respiratory failure, acute kidney injury, review of all data and collaboration with care team (7 AM to 8:30 AM, 9:45 AM to 10:10 AM) [id number]: [id number] Critical care first hour [facility] Codes - Hospitalists' Procedures Procedures: 42691 Critial Care Addl 30 Min
[2020-02-14 09:22] LABS: BNP,B-Type NATRIURETIC PEPTIDE 661.5 pg/mL (0-100)
[2020-02-14 09:24] LABS: CPK Total, Creatine Kinase 18638 U/L (26-192)
[2020-02-14] MEDS: 0.9% Saline Lock 10 ML Syringe IV (09:27)
[2020-02-14] MEDS: Ondansetron 4 MG/2 ML Vial IV (09:28)
[2020-02-14] MEDS: Aspirin 81 MG TAB.CHEW PO (09:29)
[2020-02-14] MEDS: Enoxaparin 30 MG/0.3 ML Syringe SC (09:30)
[2020-02-14] MEDS: Nystatin Powder 15gm Bottle 1 APPLIC TOPICAL ×2 (09:30→21:51)
[2020-02-14] MEDS: dexAMETHasone 4 MG Tablet 6 MG PO (09:31)
[2020-02-14] MEDS: Menthol/Lanolin/Calamine/Znox 113 GM Tube 1 APPLIC TOPICAL (10:17)
[2020-02-14] MEDS: Furosemide 20 MG/2 ML VIAL IV (17:28)
--- NOTE | 2020-02-14 19:45 | NURSING ---
Dr. Cuello notified of pt. sbp in the 60s to 70s. new order recieved for ivf bolus. will continue to monitor
--- NOTE | 2020-02-14 19:54 | NURSING ---
This am patient became unstable on BiPap. MD aware. 0.9NS bolus admin, norepi gtt started at 5. Impregnating Tank Operator communicated with family, legal guardian about patient's code status. Patient DNR status now. Medication profile changed. See new orders. Family at bedisde per DNR COVID visit policy. Family educated, all questions answered.
[2020-02-14] MEDS: morphine (oral solution) 10MG/0.5ML Syringe 10 MG SL/PO (21:49)
[2020-02-15] VITALS (24 sets, daily range): BP systolic 113–156; BP diastolic 40–63; PULSE 61–98; RESP 12–34; TEMP 37.9–39.8; O2SAT 88–93
[2020-02-15] MEDS: morphine (oral solution) 10MG/0.5ML Syringe 10 MG SL/PO ×2 (00:25→05:51)
[2020-02-15] MEDS: Acetaminophen 325 MG Tablet 650 MG PO ×3 (00:26→18:34)
[2020-02-15] MEDS: LORazepam 2 MG/ML Bottle 1 MG SL ×2 (01:27→05:50)
[2020-02-15] MEDS: Nystatin Powder 15gm Bottle 1 APPLIC TOPICAL ×2 (08:35→21:21)
[2020-02-15 10:38] LABS: Absolute Lymphocyte Count 0.51 X10^3/uL (0.83-4.51); Absolute Neutrophil Count 4.2 X10^3/uL (2.0-7.7); Basophil# 0.01 X10^3/uL; Basophil% 0.2 % (0-1); Hematocrit 39.2 % (37-47); Hemoglobin 12.9 g/dL (12.0-15.0); Lymphocyte # 0.51 X10^3/ul (4.0); Lymphocyte % 10.1 % (19-41); Mean Corp Hgb Conc 32.9 g/dL (32-36); Mean Corpuscular Hgb 30.6 pg (27.0-32.0); Mean Corpuscular Volume 92.9 fL (81-99); Mean Platelet Vol. 9.6 fl (6.2-12.0); Monocyte# 0.24 X10^3/uL; Monocyte% 4.8 % (0-10); NRBC Flagged by Analyzer 0 % (0-5); Neutrophil # 4.22 X10^3/uL (2.7-7.7); Neutrophil % 83.9 % (47-70); POSITIVE DIFFERENTIAL YES; Platelet Count 193 K/mm3 (150-450); RBC Distribution Width CV 14.1 % (11.6-14.6); RBC Distribution Width SD 47.7 fl (35.1-43.9); Red Blood Count 4.22 M/mm3 (4.2-5.4)
[2020-02-15 10:39] LABS: Differential Indicated SCAN CRITERIA MET
--- NOTE | 2020-02-15 10:46 | PCM.PN.HOSP ---
Patient Problems: Active and Suspected Problems (Last Reviewed 01/05/20 @ 13:56 by Nadia Wu) Septic shock (Acute) Urinary tract infection (Acute) Elevated serum creatinine (Acute) Elevated troponin I level (Acute) COVID-19 virus infection (Acute) Sinus tachycardia by electrocardiogram (Acute) NSTEMI (non-ST elevated myocardial infarction) (Acute) Rhabdomyolysis (Acute) Reason for Visit: Follow-up on hypoxia/IGNACIA/Rhabdomyolysis/COVID-19 infection Subjective: Patient was seen and examined. Overnight, she is off pressors. She remains on BiPAP. Oxygen requirements have gone up with increasing FiO2. Repeat blood work showed plateauing of a kidney function. Her creatinine kinase appears to have improved. Discussed with Cristal Edda who is her legal guardian, patient's CODE STATUS was made DNR CCA, no intubation to facilitate continuation of BiPAP as well as further monitoring. She voiced understanding that should she decompensate, we would switch to hospice treatment with aggressive comfort care. Objective: Physical exam: General: Alert, Oriented x3, Cooperative, anxious,on bipap HEENT: Atraumatic, PERRLA, EOMI, Normocephalic Oral: Dry Mucosa Neck: Supple Lungs: Diminished Cardiovascular: Regular rate, Regular Rhythm, Normal S1, Normal S2, No murmurs Abdomen: Bowel Sounds Present, Soft, Non Tender, Non-Distended, No Hepato-splenomegaly Extremities: Edema - bilateral trace, erythema to both knees/abrasions Skin: - - see under extremities Musculoskeletal: No Tenderness to Palpation of Joints or Extremities Lymphatic: No Cervical, Supraclavicular, or Inguinal Adenopathy Neurological: Cranial nerves II-XII grossly intact, Neuro grossly intact Psych/Mental Status: anxious Vitals/I&O's: Vital Signs Temp Pulse Resp BP Pulse Ox 100.2 F H 77 24 H 139/96 H 90 02/14/20 21:00 02/15/20 07:46 02/15/20 07:46 02/14/20 22:00 02/15/20 07:46 Oxygen Flow Rate (L/min) 3 Oxygen Delivery Method Bi-pap Weight: 109.1 kg Body Mass Index (BMI) 38.7 Intake and Output for Last 24 Hours 02/13/20 02/14/20 02/15/20 23:59 23:59 23:59 Intake Total 4950 / 4950 1650 / 1650 1946.93 / 1946.93 Output Total 3480 / 4130 1900 / 2150 250 / 250 Balance 1470 / 820 -250 / -500 1696.93 / 1696.93 Microbiology Past 72 Hours 02/12/20 08:25 Blood Culture (Wb) - Anticubital Right Blood Culture - Preliminary No growth in 48 hours. 02/12/20 08:51 Urine, Catheterized Urine Culture - Final Culture exhibits no growth. 02/12/20 20:30 Mucosa - Nose Respiratory Panel (PCR) - Final Laboratory Results 02/15/20 10:30: WBC 5.0, RBC 4.22, Hgb 12.9, Hct 39.2, MCV 92.9, MCH 30.6, MCHC 32.9, RDW Std Deviation 47.7 H, RDW Coeff of Storm 14.1, Plt Count 193, MPV 9.6, Immature Gran % (Auto) 1.000 H, Neut % (Auto) 83.9 H, Lymph % (Auto) 10.1 L, [place] % (Auto) 4.8, Eos % (Auto) 0.0, Baso % (Auto) 0.2, Absolute Neuts (auto) 4.2, Absolute Lymphs (auto) 0.51 L, Nucleated RBC % 0 02/15/20 10:30: Sodium Pending, Potassium Pending, Chloride Pending, Carbon Dioxide Pending, Anion Gap Pending, BUN Pending, Creatinine Pending, Est GFR (MDRD) Af Amer Pending, Est GFR (MDRD) Non-Af Pending, BUN/Creatinine Ratio Pending, Glucose Pending, Calcium Pending, Total Bilirubin Pending, AST Pending, ALT Pending, Alkaline Phosphatase Pending, Total Creatine Kinase Pending, Total Protein Pending, Albumin Pending 02/15/20 10:30: B-Natriuretic Peptide Pending Current Medications Acetaminophen (Acetaminophen 325 Mg Tablet) 650 mg PO Q6H PRN PRN PRN Reason: Pain Score 1-10/Temp > 100.7 F Last Admin: 02/15/20 08:34 Dose: 650 mg Documented by: Albuterol Sulfate (Albuterol 2.5 Mg/3 Ml Vial.Neb.) 2.5 mg INHALATION Q2H PRN PRN PRN Reason: SOB/Wheezing Last Admin: 02/13/20 22:40 Dose: 2.5 mg Documented by: Dextrose (Dextrose 50%-Water 25 Gm/50 Ml Disp.Syrin) 0 gm IV X1 PRN; Protocol PRN Reason: Hypoglycemia Glucagon (Glucagon 1 Mg/Ml Syringe) 1 mg IM .X1 PRN PRN Reason: Hypoglycemia Dexmedetomidine HCl 400 mcg/ (Sodium Chloride) 100 mls @ 13.638 mls/hr CONT INF .Q7H20M [facility]; Protocol Last Admin: 02/15/20 07:35 Dose: Not Given Documented by: Lorazepam (Lorazepam 2 Mg/Ml Bottle) 1 mg SL Q2H PRN PRN PRN Reason: ANXIETY/AGITATION Last Admin: 02/15/20 05:50 Dose: 1 mg Documented by: Lorazepam (Lorazepam 2 Mg/Ml Syringe) 1 mg IV Q1H PRN PRN PRN Reason: ANXIETY Morphine Sulfate (Morphine (Oral Solution) 10mg/0.5ml Syringe) 10 mg SL/PO Q1H PRN PRN PRN Reason: Pain Score 6-10 Last Admin: 02/15/20 05:51 Dose: 10 mg Documented by: Morphine Sulfate (Morphine 2 Mg/Ml Syringe) 2 mg IV Q1H PRN PRN PRN Reason: pain 4-10/10 Nystatin (Nystatin Powder 15gm Bottle) 1 applic TOPICAL BID [facility]; Protocol Last Admin: 02/15/20 08:35 Dose: 1 applicatio Documented by: Sodium Chloride (0.9% Saline Lock 10 Ml Syringe) 10 - 40 ml IV UD PRN PRN Reason: SALINE FLUSH Last Admin: 02/14/20 09:27 Dose: 10 ml Documented by: STROKE Vital Signs/Narrative: Vital Signs Pulse Resp Pulse Ox 02/15/20 07:46 77 24 H 90 Medical Necessity - Tobacco Use Smoking Status: Former smoker Assessment/Plan All Active Problems (Last Reviewed 01/05/20 @ 13:56 by Nadia Wu) Septic shock (Acute) Urinary tract infection (Acute) Elevated serum creatinine (Acute) Elevated troponin I level (Acute) COVID-19 virus infection (Acute) Sinus tachycardia by electrocardiogram (Acute) NSTEMI (non-ST elevated myocardial infarction) (Acute) Rhabdomyolysis (Acute) Screening for malignant neoplasm of intestine (Acute) History of left heart catheterization (Resolved) Hypoxemia (Acute) Dyspnea (Acute) Sinusitis (Acute) Diverticulitis (Acute) 1. Acute hypoxic respiratory failure secondary to acute COVID-19 infection, remains worsening Remains on BiPAP with increase in FiO2 100% Repeat chest x-ray shows stable appearance of bilateral pulmonary infiltrates. Continue with breathing treatments, morphine and Ativan as needed 2. Acute COVID-19 infection with hypoxia, worsening Management as above 3. Hypotension, patient's blood pressure dropped, antihypertensives on hold Off Levophed since last night. Blood pressures have remained stable 4. Acute NSTEMI likely secondary to rhabdomyolysis/demand ischemia History of CAD, admitting EKG shows no acute ST-T changes 2D echo shows EF of 60%. Troponin trended to 6.850 Cardiology consulted, Will hold off aspirin, statin, carvedilol as patient has deteriorated 5. IGNACIA, prerenal secondary to dehydration versus rhabdomyolysis Baseline creatinine around 1.1, admitted creatinine 2.73, Cr today is 2.0 Continue on IV fluids 6. Lactic acidosis likely secondary to hypoxia, resolved 7. Acute rhabdomyolysis, secondary to fall and being on her knees the whole night Admitting CKs 4846, CK now 10,069 from 37,861 Will trend in a.m, continue IV fluids 8. Bilateral knee cellulitis from bilateral knee abrasion from prolonged stay on her knees abrasion, 9. ANNIE on CPAP 10. Type II DM, BS are controlled, continue to hold Metformin 11. Disposition: Aggressive comfort care, if patient continues to decompensate Discussed patient's care in detail with Cristal Bañuelos. Updated her. Code status changed to DNR-CCA, no intubation. All questions answered. Met later with patient's son in her room, updated on progress and plan of care as well as goals of care. All questions were answered Time spent discussing CODE STATUS 30 minutes Inpatient E&M: 13022 Subs Hosp L3 Procedures: 70192 Advncd Care Plan 30 Min
--- NOTE | 2020-02-15 10:50 | RAD_ITS ---
STUDY: X-RAY CHEST REASON FOR EXAM: Female, 70 years old. DYSPNEA/SOB. COVID INFECTION/LACTIC ACIDOSIS/NSTEMI TECHNIQUE: Single AP portable view of the chest. COMPARISON: Comparison is made with prior study dated 02/13/2020. FINDINGS: EKG electrodes are seen. Stable bilateral pulmonary infiltrates more prominent in the right lower lobe. Heterogeneous appearance in the left upper lobe pulmonary infiltrate. There has been essentially no change. There is no demonstrated pleural abnormality. Normal size heart. Normal mediastinum and kelly. Normal visualized pulmonary arteries. Normal visualized aortic arch and descending thoracic aorta. Normal visualized thoracic spine. Normal visualized ribs, clavicles, and shoulders. There is no demonstrated abnormality of the visualized soft tissue structures of the upper abdomen. RAD/Chest 1 View (Portable) IMPRESSION: Stable appearance of the bilateral pulmonary infiltrates as described. Electronically Signed: Jacinto Matute, at 11:24 EST , Service support ,
[2020-02-15 10:59] LABS: BNP,B-Type NATRIURETIC PEPTIDE 348.1 pg/mL (0-100)
[2020-02-15 11:03] LABS: Differential Comment SCANNED
--- NOTE | 2020-02-15 11:22 | CASEMGMT ---
-Ely Rowe, pts outpatient case manager from [facility] called for update on pt. SW updated her on pt's current code status and condition. Ely asked for SW to update her as her stay progresses, , and if pt is able to discharge to fax discharge information to her: [phone]. SW will update Ely as appropriate. LEXX Jacques
[2020-02-15 11:27] LABS: ALB/GLOB Ratio 0.7 RATIO (0.9-2.4); AST(SGOT) 315 U/L (15-37); Alanine Aminotransfer ALT/SGPT 109 U/L (13-56); Albumin, Serum 2.5 g/dL (3.2-5.0); Alkaline Phosphatase 74 U/L (45-117); Anion Gap 8 (5-15); BUN 38 mg/dL (7-18); CPK Total, Creatine Kinase 10069 U/L (26-192); Calcium,Total 7.4 mg/dL (8.5-10.1); Chloride 115 mmol/L (98-107); EST Glomerular Filtration Rate 26 mL/min (>60); Est Glom Filt Rate - Afr Amer 32 mL/min (>60); Estimated Creatinine Clearance 24.85 ml/min; Globulin 3.7 g/dL (2.2-4.2); Glucose 120 mg/dL (74-106); Potassium 4.4 mmol/L (3.5-5.1); Protein, Total 6.2 g/dL (6.4-8.2); Sodium Level 141 mmol/L (136-145)
[2020-02-15] MEDS: Morphine 2 MG/ML Syringe IV ×3 (12:45→21:21)
[2020-02-15] MEDS: dexAMETHasone 10 MG/ML Vial 6 MG IV (13:01)
--- NOTE | 2020-02-15 15:23 | PCM.PN.INT ---
Subjective: Patient has done okay through the day. Patient has stabilized and her cardiopulmonary status, so family has decided to make her DNR Comfort Care arrest without intubation. Patient continues to require BiPAP consistently to maintain saturations. Patient is still somewhat anxious, but paradoxical muscle movement has improved after initiation of AVAPS General: Alert, Cooperative, No apparent distress - On BiPAP, - - Obese HEENT: Atraumatic, PERRLA, EOMI, Normocephalic, - - Scleral injection without icterus Oral: No Gingival or Mucosal Lesions/ Ulcerations, Dry Mucosa Neck: Supple, No Nodes, Trachea Midline, JVD, Right Lungs: Diminished, Rales - Right base, Wheezes - Sporadic Cardiovascular: Regular Rhythm, Normal S1, Normal S2, No murmurs, No rub noted, No Gallop, Tachycardic Abdomen: Bowel Sounds Present, Soft, Non Tender, Non-Distended, Obese Extremities: No cyanosis, Edema Skin: - - No change from previous Musculoskeletal: No Tenderness to Palpation of Joints or Extremities Lymphatic: No Cervical, Supraclavicular, or Inguinal Adenopathy Neurological: Cranial nerves II-XII grossly intact, Neuro grossly intact Psych/Mental Status: Anxious, Flat Affect Vital Signs Temp Pulse Resp BP Pulse Ox 38.8 C H 75 24 H 133/46 H 92 02/15/20 11:00 02/15/20 11:58 02/15/20 11:58 02/15/20 11:00 02/15/20 11:58 Oxygen Flow Rate (L/min) 3 Oxygen Delivery Method Bi-pap Weight: 109.1 kg Body Mass Index (BMI) 38.7 Intake and Output for Last 24 Hours 02/13/20 02/14/20 02/15/20 23:59 23:59 23:59 Intake Total 4950 / 4950 1650 / 1650 1946.93 / 1946.93 Output Total 3480 / 4130 1900 / 2150 250 / 250 Balance 1470 / 820 -250 / -500 1696.93 / 1696.93 Labs (Last 48 Hours) 02/13/20 02/13/20 02/14/20 16:28 22:04 06:00 WBC 5.8 RBC 4.58 Hgb 13.9 Hct 43.3 MCV 94.5 MCH 30.3 MCHC 32.1 RDW Std Deviation 48.9 H RDW Coeff of Storm 14.0 Plt Count 170 MPV 10.2 Immature Gran % (Auto) 0.700 Neut % (Auto) 70.3 H Lymph % (Auto) 20.2 [place] % (Auto) 5.9 Eos % (Auto) 2.6 Baso % (Auto) 0.3 Absolute Neuts (auto) 4.0 Absolute Lymphs (auto) 1.16 Nucleated RBC % 0 Differential Comment Diff Path Review Specimen Type Sample Site pH Bicarbonate Actual Total CO2 Base Excess O2 Saturation O2 % ABG pCO2 ABG pO2 O2 Delivery Device Vent Mode POC PEEP Sodium Potassium Chloride Carbon Dioxide Anion Gap BUN Creatinine Estim Creat Clear Calc Est GFR (MDRD) Af Amer Est GFR (MDRD) Non-Af BUN/Creatinine Ratio Glucose Calcium Total Bilirubin AST ALT Alkaline Phosphatase Total Creatine Kinase B-Natriuretic Peptide Total Protein Albumin Globulin Albumin/Globulin Ratio POC Glucose 110 112 H 02/14/20 02/14/20 02/14/20 06:00 06:00 06:00 WBC RBC Hgb Hct MCV MCH MCHC RDW Std Deviation RDW Coeff of Storm Plt Count MPV Immature Gran % (Auto) Neut % (Auto) Lymph % (Auto) [place] % (Auto) Eos % (Auto) Baso % (Auto) Absolute Neuts (auto) Absolute Lymphs (auto) Nucleated RBC % Differential Comment Diff Path Review Specimen Type Sample Site pH Bicarbonate Actual Total CO2 Base Excess O2 Saturation O2 % ABG pCO2 ABG pO2 O2 Delivery Device Vent Mode POC PEEP Sodium 139 Potassium 4.7 Chloride 112 H Carbon Dioxide 20.0 L Anion Gap 7 BUN 27 H Creatinine 1.91 H Estim Creat Clear Calc 26.02 Est GFR (MDRD) Af Amer 34 L Est GFR (MDRD) Non-Af 28 L BUN/Creatinine Ratio 14.1 Glucose 133 H Calcium 7.5 L Total Bilirubin 0.20 AST 551 H ALT 143 H Alkaline Phosphatase 82 Total Creatine Kinase 23043 H B-Natriuretic Peptide 661.5 H Total Protein 6.3 L Albumin 2.6 L Globulin 3.7 Albumin/Globulin Ratio 0.7 L POC Glucose 02/14/20 02/15/20 02/15/20 06:59 10:30 10:30 WBC 5.0 RBC 4.22 Hgb 12.9 Hct 39.2 MCV 92.9 MCH 30.6 MCHC 32.9 RDW Std Deviation 47.7 H RDW Coeff of Storm 14.1 Plt Count 193 MPV 9.6 Immature Gran % (Auto) 1.000 H Neut % (Auto) 83.9 H Lymph % (Auto) 10.1 L [place] % (Auto) 4.8 Eos % (Auto) 0.0 Baso % (Auto) 0.2 Absolute Neuts (auto) 4.2 Absolute Lymphs (auto) 0.51 L Nucleated RBC % 0 Differential Comment SCANNED Diff Path Review Not Reportable Specimen Type ART Sample Site L Brach pH 7.30 L Bicarbonate Actual 16.1 L Total CO2 17 Base Excess -10 L O2 Saturation 85 L O2 % 40 ABG pCO2 33.2 L ABG pO2 55 L O2 Delivery Device BiPAP Vent Mode AC POC PEEP 6 Sodium 141 Potassium 4.4 Chloride 115 H Carbon Dioxide 18.0 L Anion Gap 8 BUN 38 H Creatinine 2.00 H Estim Creat Clear Calc 24.85 Est GFR (MDRD) Af Amer 32 L Est GFR (MDRD) Non-Af 26 L BUN/Creatinine Ratio 19.0 Glucose 120 H Calcium 7.4 L Total Bilirubin 0.30 AST 315 H ALT 109 H Alkaline Phosphatase 74 Total Creatine Kinase 43016 H B-Natriuretic Peptide Total Protein 6.2 L Albumin 2.5 L Globulin 3.7 Albumin/Globulin Ratio 0.7 L POC Glucose 02/15/20 10:30 WBC RBC Hgb Hct MCV MCH MCHC RDW Std Deviation RDW Coeff of Storm Plt Count MPV Immature Gran % (Auto) Neut % (Auto) Lymph % (Auto) [place] % (Auto) Eos % (Auto) Baso % (Auto) Absolute Neuts (auto) Absolute Lymphs (auto) Nucleated RBC % Differential Comment Diff Path Review Specimen Type Sample Site pH Bicarbonate Actual Total CO2 Base Excess O2 Saturation O2 % ABG pCO2 ABG pO2 O2 Delivery Device Vent Mode POC PEEP Sodium Potassium Chloride Carbon Dioxide Anion Gap BUN Creatinine Estim Creat Clear Calc Est GFR (MDRD) Af Amer Est GFR (MDRD) Non-Af BUN/Creatinine Ratio Glucose Calcium Total Bilirubin AST ALT Alkaline Phosphatase Total Creatine Kinase B-Natriuretic Peptide 348.1 H Total Protein Albumin Globulin Albumin/Globulin Ratio POC Glucose Microbiology 02/12/20 08:25 Blood Culture (Wb) - Anticubital Right Blood Culture - Preliminary No growth in 48 hours. 02/12/20 08:51 Urine, Catheterized Urine Culture - Final Culture exhibits no growth. Clinical Impression(s) from Imaging Studies Chest X-Ray 02/15/20 10:50 IMPRESSION: Stable appearance of the bilateral pulmonary infiltrates as described. Electronically Signed: Jacinto Matute, at 11:24 EST , Service support , Medical Necessity - Tobacco Use Smoking Status: Former smoker Assessment/Plan All Active Problems (Last Reviewed 01/05/20 @ 13:56 by Nadia Wu) Septic shock (Acute) Urinary tract infection (Acute) Elevated serum creatinine (Acute) Elevated troponin I level (Acute) COVID-19 virus infection (Acute) Sinus tachycardia by electrocardiogram (Acute) NSTEMI (non-ST elevated myocardial infarction) (Acute) Rhabdomyolysis (Acute) Screening for malignant neoplasm of intestine (Acute) History of left heart catheterization (Resolved) Hypoxemia (Acute) Dyspnea (Acute) Sinusitis (Acute) Diverticulitis (Acute) RECOMMENDATIONS: 1. Continue BiPAP 2. Agree with empiric diuretic therapy 3. Hold on remdesivir, convalescent serum. Okay to do Decadron 4. Change CODE STATUS to DNR Comfort Care arrest without intubation 5. Continue to monitor progress clinically IMPRESSIONS: 1. Septic shock secondary to probable UTI Patient received Unasyn and Zosyn in the ER. Patient likely okay with ceftriaxone pending culture data. Patient did have a significant metabolic acidosis on presentation that may have led to a significant amount of the tachypnea noted. Exact etiology is unclear given limitations with memory and unclear onset. Urine culture is negative. Patient has developed bilateral patchy infiltrates. Significant concern that this represents a progression of COVID-19. Monitoring off antibiotics 2. Acute hypoxic respiratory insufficiency secondary to COVID-19/pulmonary hypertension Patient with rapidly worsening oxygenation status over the last 24 hours. Patient is also developed bilateral infiltrates and has persisted and high fevers. Clinical suspicion that deterioration is secondary to COVID-19, but onset of symptoms is unclear at this time. Patient appears to be responding well to AVAPS. Patient would benefit from diuretic therapy from a respiratory standpoint. CPK appears to be improving, but oxygenation is marginal at this time. Monitor clinically off antibiotics. 3. Acute kidney injury secondary to rhabdomyolysis secondary to prolonged downtime Stable. Patient's baseline appears to be approximately 1.1-1.2. Presentation creatinine of 2.7 is significantly elevated. Patient has received significant volume resuscitation. Agree with diuretic therapy. CPK continues to improve. 4. Non-ST elevation [facility] has been consulted. Consider initiation of Lovenox therapy. Defer to cardiology 5. Short-term memory issues/ANNIE/depression/hypertension/Mast's esophagus Complicates care, management, recovery and prognosis. Patient can likely be initiated on home CPAP settings with sleep. Patient should likely also be on a PPI given history of Mast's esophagus and systemic anticoagulation. Other home medications can likely be reinitiated outside of hypertensives, which should be reinitiated in a stepwise fashion. TIME: 33 minutes critical care time has been spent addressing septic shock, hypoxic respiratory failure, acute kidney injury, review of all data and collaboration with care team (1 PM to 3 PM) [phone]: [id number] Critical care first hour
[2020-02-15] MEDS: Ipratropium/Albuterol Sulfate 3 ML AMPUL.NEB INHALATION ×2 (15:44→19:18)
[2020-02-15] MEDS: Furosemide 20 MG/2 ML VIAL IV (16:25)
--- NOTE | 2020-02-15 19:23 | CPS ---
Increased EPAP to 10 and Min P to 14 to see if patient might oxygenate better on AVAPS BiPAP. Is on max FiO2 of 100%. GENERAL SERVICE TECHNICIAN will monitor patient after change made. RN aware of change.
[2020-02-16] VITALS (31 sets, daily range): BP systolic 106–157; BP diastolic 39–101; PULSE 53–76; RESP 11–25; TEMP 36.6–37.8; O2SAT 82–94
[2020-02-16 00:31] LABS: Bedside Glucose 101 mg/dL (70-110)
[2020-02-16] MEDS: Acetaminophen 325 MG Tablet 650 MG PO ×2 (00:41→12:59)
[2020-02-16 05:16] LABS: Absolute Lymphocyte Count 0.53 X10^3/uL (0.83-4.51); Absolute Neutrophil Count 3.8 X10^3/uL (2.0-7.7); Basophil# 0.02 X10^3/uL; Basophil% 0.4 % (0-1); Differential Indicated SCAN CRITERIA MET; Hematocrit 39.9 % (37-47); Lymphocyte # 0.53 X10^3/ul (4.0); Lymphocyte % 11.3 % (19-41); Mean Corp Hgb Conc 32.6 g/dL (32-36); Mean Corpuscular Hgb 30.7 pg (27.0-32.0); Mean Corpuscular Volume 94.3 fL (81-99); Mean Platelet Vol. 9.6 fl (6.2-12.0); Monocyte# 0.24 X10^3/uL; Monocyte% 5.1 % (0-10); NRBC Flagged by Analyzer 0 % (0-5); Neutrophil # 3.82 X10^3/uL (2.7-7.7); Neutrophil % 81.9 % (47-70); POSITIVE DIFFERENTIAL YES; Platelet Count 196 K/mm3 (150-450); RBC Distribution Width CV 14.4 % (11.6-14.6); RBC Distribution Width SD 49.8 fl (35.1-43.9); Red Blood Count 4.23 M/mm3 (4.2-5.4); White Blood Count 4.7 K/mm3 (4.4-11.0)
[2020-02-16 06:20] LABS: ALB/GLOB Ratio 0.6 RATIO (0.9-2.4); AST(SGOT) 255 U/L (15-37); Alanine Aminotransfer ALT/SGPT 97 U/L (13-56); Albumin, Serum 2.4 g/dL (3.2-5.0); Alkaline Phosphatase 73 U/L (45-117); Anion Gap 6 (5-15); BUN 49 mg/dL (7-18); CPK Total, Creatine Kinase 6133 U/L (26-192); Chloride 115 mmol/L (98-107); Creatinine, Serum 1.96 mg/dL (0.55-1.02); EST Glomerular Filtration Rate 27 mL/min (>60); Est Glom Filt Rate - Afr Amer 33 mL/min (>60); Estimated Creatinine Clearance 25.36 ml/min; Globulin 4.1 g/dL (2.2-4.2); Glucose 138 mg/dL (74-106); Potassium 4.6 mmol/L (3.5-5.1); Protein, Total 6.5 g/dL (6.4-8.2); Sodium Level 142 mmol/L (136-145)
[2020-02-16] MEDS: Ipratropium/Albuterol Sulfate 3 ML AMPUL.NEB INHALATION ×3 (07:31→15:48)
[2020-02-16] MEDS: dexAMETHasone 10 MG/ML Vial 6 MG IV (09:02)
[2020-02-16] MEDS: Nystatin Powder 15gm Bottle 1 APPLIC TOPICAL (09:02)
[2020-02-16] MEDS: 0.9% Saline Lock 10 ML Syringe IV ×4 (09:06→19:03)
[2020-02-16 09:31] LABS: Bedside Glucose 127 mg/dL (70-110)
--- NOTE | 2020-02-16 10:45 | PN_ITS ---
Subjective: Patient has done okay overnight. Patient has essentially been BiPAP dependent and EPAP has had to be increased on 100% FiO2 to maintain saturations. Call POA for discussion as she was upset about yesterday's events. After extensive conversation, it was agreed the patient would not receive pressors for any reason. BiPAP settings will not be altered above current settings and if patient becomes symptomatic, comfort measures will be used. General: Alert, No apparent distress - On BiPAP, - - Obese. Good BiPAP synchr zachary. HEENT: Atraumatic, PERRLA, EOMI, - - Scleral injection without icterus Oral: No Gingival or Mucosal Lesions/ Ulcerations, Dry Mucosa Neck: Supple, No JVD, No Nodes, Trachea Midline Lungs: No rhonchi, No wheeze, No rales, Diminished, - - Symmetric expansion. Cardiovascular: Normal S1, Normal S2, No murmurs, Bradycardic, No rub noted, No Gallop Abdomen: Bowel Sounds Present, Soft, Non Tender, Non-Distended, Obese Extremities: No clubbing, No cyanosis, Edema Skin: - - No change from previous Musculoskeletal: No Tenderness to Palpation of Joints or Extremities Lymphatic: No Cervical, Supraclavicular, or Inguinal Adenopathy Neurological: Cranial nerves II-XII grossly intact, Neuro grossly intact, Motor Exam 5/5 strength throughout Psych/Mental Status: Flat Affect, Restless Vital Signs Temp Pulse Resp BP Pulse Ox 36.8 C 57 L 13 106/45 L 91 02/16/20 06:00 02/16/20 07:32 02/16/20 07:32 02/16/20 06:00 02/16/20 07:32 Oxygen Flow Rate (L/min) 3 Oxygen Delivery Method Bi-pap Weight: 109 kg Body Mass Index (BMI) 38.7 Intake and Output for Last 24 Hours 02/14/20 02/15/20 02/16/20 23:59 23:59 23:59 Intake Total 1650 / 1650 1946.93 / 1946.93 150 / 150 Output Total 1900 / 2150 1475 / 1600 325 / 325 Balance -250 / -500 471.93 / 346.93 -175 / -175 Labs (Last 48 Hours) 02/15/20 02/15/20 02/15/20 10:30 10:30 10:30 WBC 5.0 RBC 4.22 Hgb 12.9 Hct 39.2 MCV 92.9 MCH 30.6 MCHC 32.9 RDW Std Deviation 47.7 H RDW Coeff of Storm 14.1 Plt Count 193 MPV 9.6 Immature Gran % (Auto) 1.000 H Neut % (Auto) 83.9 H Lymph % (Auto) 10.1 L [place] % (Auto) 4.8 Eos % (Auto) 0.0 Baso % (Auto) 0.2 Absolute Neuts (auto) 4.2 Absolute Lymphs (auto) 0.51 L Nucleated RBC % 0 Differential Comment SCANNED Diff Path Review Not Reportable Sodium 141 Potassium 4.4 Chloride 115 H Carbon Dioxide 18.0 L Anion Gap 8 BUN 38 H Creatinine 2.00 H Estim Creat Clear Calc 24.85 Est GFR (MDRD) Af Amer 32 L Est GFR (MDRD) Non-Af 26 L BUN/Creatinine Ratio 19.0 Glucose 120 H Calcium 7.4 L Total Bilirubin 0.30 AST 315 H ALT 109 H Alkaline Phosphatase 74 Total Creatine Kinase 85162 H B-Natriuretic Peptide 348.1 H Total Protein 6.2 L Albumin 2.5 L Globulin 3.7 Albumin/Globulin Ratio 0.7 L POC Glucose 02/15/20 02/16/20 02/16/20 13:10 05:00 05:00 WBC 4.7 RBC 4.23 Hgb 13.0 Hct 39.9 MCV 94.3 MCH 30.7 MCHC 32.6 RDW Std Deviation 49.8 H RDW Coeff of Storm 14.4 Plt Count 196 MPV 9.6 Immature Gran % (Auto) 1.300 H Neut % (Auto) 81.9 H Lymph % (Auto) 11.3 L [place] % (Auto) 5.1 Eos % (Auto) 0.0 Baso % (Auto) 0.4 Absolute Neuts (auto) 3.8 Absolute Lymphs (auto) 0.53 L Nucleated RBC % 0 Differential Comment Diff Path Review Sodium 142 Potassium 4.6 Chloride 115 H Carbon Dioxide 21.0 Anion Gap 6 BUN 49 H Creatinine 1.96 H Estim Creat Clear Calc 25.36 Est GFR (MDRD) Af Amer 33 L Est GFR (MDRD) Non-Af 27 L BUN/Creatinine Ratio 25.0 H Glucose 138 H Calcium 8.0 L Total Bilirubin 0.30 AST 255 H ALT 97 H Alkaline Phosphatase 73 Total Creatine Kinase 6133 H B-Natriuretic Peptide Total Protein 6.5 Albumin 2.4 L Globulin 4.1 Albumin/Globulin Ratio 0.6 L POC Glucose 101 02/16/20 09:05 WBC RBC Hgb Hct MCV MCH MCHC RDW Std Deviation RDW Coeff of Storm Plt Count MPV Immature Gran % (Auto) Neut % (Auto) Lymph % (Auto) [place] % (Auto) Eos % (Auto) Baso % (Auto) Absolute Neuts (auto) Absolute Lymphs (auto) Nucleated RBC % Differential Comment Diff Path Review Sodium Potassium Chloride Carbon Dioxide Anion Gap BUN Creatinine Estim Creat Clear Calc Est GFR (MDRD) Af Amer Est GFR (MDRD) Non-Af BUN/Creatinine Ratio Glucose Calcium Total Bilirubin AST ALT Alkaline Phosphatase Total Creatine Kinase B-Natriuretic Peptide Total Protein Albumin Globulin Albumin/Globulin Ratio POC Glucose 127 H Microbiology 02/12/20 08:25 Blood Culture (Wb) - Anticubital Right Blood Culture - Preliminary No growth in 48 hours. 02/12/20 08:51 Urine, Catheterized Urine Culture - Final Culture exhibits no growth. Clinical Impression(s) from Imaging Studies Chest X-Ray 02/15/20 10:50 IMPRESSION: Stable appearance of the bilateral pulmonary infiltrates as described. Electronically Signed: Jacinto Juju, at 11:24 EST , Service support , Medical Necessity - Tobacco Use Smoking Status: Former smoker Assessment/Plan All Active Problems (Last Reviewed 01/05/20 @ 13:56 by Nadia Wu) Septic shock (Acute) Urinary tract infection (Acute) Elevated serum creatinine (Acute) Elevated troponin I level (Acute) COVID-19 virus infection (Acute) Sinus tachycardia by electrocardiogram (Acute) NSTEMI (non-ST elevated myocardial infarction) (Acute) Rhabdomyolysis (Acute) Screening for malignant neoplasm of intestine (Acute) History of left heart catheterization (Resolved) Hypoxemia (Acute) Dyspnea (Acute) Sinusitis (Acute) Diverticulitis (Acute) RECOMMENDATIONS: 1. Continue BiPAP at current settings 2. Agree with empiric diuretic therapy as tolerates 3. Hold on remdesivir, convalescent serum. Okay to do Decadron 4. Change CODE STATUS to DNR Comfort Care arrest without intubation 5. Continue to monitor progress clinically IMPRESSIONS: 1. Septic shock secondary to probable UTI Patient received Unasyn and Zosyn in the ER. Patient likely okay with ceftriaxone pending culture data. Patient did have a significant metabolic acidosis on presentation that may have led to a significant amount of the tachypnea noted. Exact etiology is unclear given limitations with memory and unclear onset. Urine culture is negative. Patient has developed bilateral patchy infiltrates. Significant concern that this represents a progression of COVID-19. Monitoring off antibiotics for now. Patient is not a candidate for remdesivir given renal function 2. Acute hypoxic respiratory insufficiency secondary to COVID-19/pulmonary hypertension Patient with rapidly worsening oxygenation status over the last 24 hours. Patient is also developed bilateral infiltrates and has persisted and high fevers. Clinical suspicion that deterioration is secondary to COVID-19, but onset of symptoms is unclear at this time. Patient appears to be responding well to AVAPS. Patient would benefit from diuretic therapy from a respiratory standpoint. CPK appears to be improving, but oxygenation is marginal at this time. Monitor clinically off antibiotics. Discussed with POA at length. BiPAP settings will not be changed other than to decrease FiO2. If patient becomes progressively symptomatic or hypoxic, comfort measures will be used. 3. Acute kidney injury secondary to rhabdomyolysis secondary to prolonged downtime Stable. Patient's baseline appears to be approximately 1.1-1.2. Presentation creatinine of 2.7 is significantly elevated. Patient has received significant volume resuscitation. Agree with diuretic therapy as blood pressure will allow. CPK continues to improve. 4. Non-ST elevation [place] [facility] has been consulted. Consider initiation of Lovenox therapy. Defer to cardiology 5. Short-term memory issues/ANNIE/depression/hypertension/Mast's esophagus Complicates care, management, recovery and prognosis. Patient can likely be initiated on home CPAP settings with sleep. Patient should likely also be on a PPI given history of Mast's esophagus and systemic anticoagulation. Other home medications can likely be reinitiated outside of hypertensives, which should be reinitiated in a stepwise fashion. TIME: 35 minutes critical care time has been spent addressing septic shock, hypoxic respiratory failure, acute kidney injury, review of all data and collaboration with care team (9 AM to 10:50 AM) 9xxxx: [id number] Critical care first hour
[2020-02-16] MEDS: Morphine 2 MG/ML Syringe IV ×3 (11:03→21:01)
[2020-02-16] MEDS: Furosemide 20 MG/2 ML VIAL IV (11:04)
--- NOTE | 2020-02-16 12:34 | PN_ITS ---
Patient Problems: Active and Suspected Problems (Last Reviewed 01/05/20 @ 13:56 by Nadia Wu) Septic shock (Acute) Urinary tract infection (Acute) Elevated serum creatinine (Acute) Elevated troponin I level (Acute) COVID-19 virus infection (Acute) Sinus tachycardia by electrocardiogram (Acute) NSTEMI (non-ST elevated myocardial infarction) (Acute) Rhabdomyolysis (Acute) Subjective: Pt sleeping on NIV in AVAPS mode at this time. Vitals/I&O's: Vital Signs Temp Pulse Resp BP Pulse Ox 98.2 F 74 23 H 106/45 L 87 02/16/20 06:00 02/16/20 11:48 02/16/20 11:48 02/16/20 06:00 02/16/20 11:48 Oxygen Flow Rate (L/min) 3 Oxygen Delivery Method Bi-pap Weight: 109 kg Body Mass Index (BMI) 38.7 Intake and Output for Last 24 Hours 02/14/20 02/15/20 02/16/20 23:59 23:59 23:59 Intake Total 1650 / 1650 1946.93 / 1946.93 150 / 150 Output Total 1900 / 2150 1475 / 1600 600 / 600 Balance -250 / -500 471.93 / 346.93 -450 / -450 General: Well developed, Well nourished, Lethargic, - - sleeping HEENT: Atraumatic, Normocephalic Lungs: Clear to auscultation, Normal air movement, No rhonchi, No wheeze, No rales Cardiovascular: Regular rate, Regular Rhythm, Normal S1, Normal S2, No murmurs, No Ectopic Activity, No rub noted, No Gallop Abdomen: Bowel Sounds Present, Soft, Non Tender, Non-Distended, Obese Extremities: No clubbing, No cyanosis, No edema, Capillary Refill Less than 3 Seconds, Peripheral Pulses Normal Skin: No rashes Psych/Mental Status: - - pt sleeping Microbiology Past 72 Hours 02/12/20 08:25 Blood Culture (Wb) - Anticubital Right Blood Culture - Preliminary No growth in 48 hours. 02/12/20 08:51 Urine, Catheterized Urine Culture - Final Culture exhibits no growth. Laboratory Results 02/15/20 13:10: POC Glucose 101 02/16/20 05:00: WBC 4.7, RBC 4.23, Hgb 13.0, Hct 39.9, MCV 94.3, MCH 30.7, MCHC 32.6, RDW Std Deviation 49.8 H, RDW Coeff of Storm 14.4, Plt Count 196, MPV 9.6, Immature Gran % (Auto) 1.300 H, Neut % (Auto) 81.9 H, Lymph % (Auto) 11.3 L, [place] % (Auto) 5.1, Eos % (Auto) 0.0, Baso % (Auto) 0.4, Absolute Neuts (auto) 3.8, Absolute Lymphs (auto) 0.53 L, Nucleated RBC % 0 02/16/20 05:00: Sodium 142, Potassium 4.6, Chloride 115 H, Carbon Dioxide 21.0, Anion Gap 6, BUN 49 H, Creatinine 1.96 H, Estim Creat Clear Calc 25.36, Est GFR (MDRD) Af Amer 33 L, Est GFR (MDRD) Non-Af 27 L, BUN/Creatinine Ratio 25.0 H, Glucose 138 H, Calcium 8.0 L, Total Bilirubin 0.30, AST 255 H, ALT 97 H, Alkaline Phosphatase 73, Total Creatine Kinase 6133 H, Total Protein 6.5, Albumin 2.4 L, Globulin 4.1, Albumin/Globulin Ratio 0.6 L 02/16/20 09:05: POC Glucose 127 H Current Medications Acetaminophen (Acetaminophen 325 Mg Tablet) 650 mg PO Q6H PRN PRN PRN Reason: Pain Score 1-10/Temp > 100.7 F Last Admin: 02/16/20 00:41 Dose: 650 mg Documented by: Albuterol Sulfate (Albuterol 2.5 Mg/3 Ml Vial.Neb.) 2.5 mg INHALATION Q2H PRN PRN PRN Reason: SOB/Wheezing Last Admin: 02/13/20 22:40 Dose: 2.5 mg Documented by: Albuterol/Ipratropium (Ipratropium/Albuterol Sulfate 3 Ml Ampul.Neb) 3 ml INHALATION Q4HWA.RT STEVE Last Admin: 02/16/20 11:48 Dose: 3 ml Documented by: Dexamethasone Sodium Phosphate (Dexamethasone 10 Mg/Ml Vial) 6 mg IV DAILY STEVE Last Admin: 02/16/20 09:02 Dose: 6 mg Documented by: Dextrose (Dextrose 50%-Water 25 Gm/50 Ml Disp.Syrin) 0 gm IV X1 PRN; Protocol PRN Reason: Hypoglycemia Glucagon (Glucagon 1 Mg/Ml Syringe) 1 mg IM .X1 PRN PRN Reason: Hypoglycemia Morphine Sulfate (Morphine 2 Mg/Ml Syringe) 2 mg IV Q4H PRN PRN PRN Reason: pain 4-12/25 Last Admin: 02/16/20 11:03 Dose: 2 mg Documented by: Nystatin (Nystatin Powder 15gm Bottle) 1 applic TOPICAL BID STEVE; Protocol Last Admin: 02/16/20 09:02 Dose: 1 applicatio Documented by: Sodium Chloride (0.9% Saline Lock 10 Ml Syringe) 10 - 40 ml IV UD PRN PRN Reason: SALINE FLUSH Last Admin: 02/16/20 11:04 Dose: 10 ml Documented by: STROKE Vital Signs/Narrative: Vital Signs Pulse Resp Pulse Ox 02/16/20 11:48 74 23 H 87 Medical Necessity - Tobacco Use Smoking Status: Former smoker Assessment/Plan All Active Problems (Last Reviewed 01/05/20 @ 13:56 by Nadia Wu) Septic shock (Acute) Urinary tract infection (Acute) Elevated serum creatinine (Acute) Elevated troponin I level (Acute) COVID-19 virus infection (Acute) Sinus tachycardia by electrocardiogram (Acute) NSTEMI (non-ST elevated myocardial infarction) (Acute) Rhabdomyolysis (Acute) Screening for malignant neoplasm of intestine (Acute) History of left heart catheterization (Resolved) Hypoxemia (Acute) Dyspnea (Acute) Sinusitis (Acute) Diverticulitis (Acute) Septic Shock 2/2 COVID PNA -shock is now resolved -off ABX with neg cx -BP stable off pressors -monitor Acute Hypoxic Respiratory Failure 2/2 COVID 19 PNA and PAH -continue Decadron day 06/25 -non a candidate for Remdesivir 2/2 renal fxn -On NIV with AVAPS mode at an FiO2 of 100% -wean O2 and support as able -no ETT -continue supportive care IGNACIA 2/2 Acute Rhabdomyolysis -sCr is improving -baseline is about 1-1.2 -diuresis as able -CK is trending down NSTEMI type 2 -nml cath 5 yrs ago and nml ECHO 2 yrs ago -no further invasive cardiology procedures at this time per cards -continue current regimen Depression -hold home meds ANNIE -NIV HTN/HPL -hold meds for now DM-2 -BGT are ok -monitor -takes only orals at home GERD Start Protonix IVP DVT Prophylaxis -start sq heparin TID Code status DNR CCA no ETT -per d/w Dr. Mcgregor--> will likely be terminally removing NIV if continues with no clinical improvement -supportive meds available -monitor Inpatient E&M: [id number] Subs Hosp L2
[2020-02-16] MEDS: LORazepam 2 MG/ML Syringe IV ×4 (13:00→21:01)
[2020-02-16] MEDS: Heparin Injection (Vial) 5,000 UNIT/ML VIAL 5000 UNIT SC (13:00)
[2020-02-16 13:21] LABS: Bedside Glucose 146 mg/dL (70-110)
--- NOTE | 2020-02-16 13:48 | NURSING ---
Guardian, Cristal, notified of pt's O2 saturation maintaining in the mid-high 80's. Per Dr. Mcgregor, will contact Cristal again if O2 saturations decrease in the next 1-2 hours to discuss code status.
[2020-02-16] MEDS: HYDROmorphone 0.5 MG/0.5 ML SYRINGE IV ×3 (19:02→21:11)
--- NOTE | 2020-02-16 22:24 | NURSING ---
pt. DNRCC, code status changed today. pt. son gary at bedside with patient at 194 and aware of pt. status. Pt. taken off of bipap at approximately 2054. pt. medicated with comfort meds dilaudid and ativan. RN at bedside with patient. patient went agonal and then asytole at 1916. 2 RN auscultation. No heart tones detected. Cristal (legal guardian) notified of pt. , & will disseminate information to the rest of the family. notified & life connections notified.
--- NOTE | 2020-02-17 17:42 | PCM.DEATH ---
Preliminary Cause of Acute Respiratory Failure 2/2 COVID PNA Date of Admission: 02/12/20 Date of : 02/17/20 - Principle Diagnosis Problem List: Active and Suspected Problems (Last Reviewed 01/05/20 @ 13:56 by Nadia Wu) Septic shock (Acute) Urinary tract infection (Acute) Elevated serum creatinine (Acute) Elevated troponin I level (Acute) COVID-19 virus infection (Acute) Sinus tachycardia by electrocardiogram (Acute) NSTEMI (non-ST elevated myocardial infarction) (Acute) Rhabdomyolysis (Acute) Hospital Course Ms Salas was a 70 year old F with PMH of obesity, HTN, ANNIE, and COPD who presented to the ED at [facility] on 02/12/2020 with complaints of generalized weakness. She was attempting to get-up when she fell down at home and fell between the bed and the dresser at an unknown time/day. She stated that she was on the floor the whole night at least was found that morning during the morning check. In the ED she had a temperature of 90 7.7F, heart rate 128, blood pressure 155/52, RR 34, SPO2 was 88% on room air and saturating 92% on 3 L of oxygen. Her admitting blood work show WBC count of 5.5, hemoglobin 15.6, platelet count of 224, INR 1.0, pH was 7.32, PCO2 was 26.1, PO2 of 71. Sodium was 134, potassium 4.5, chloride 105, carbonate 15, BUN 32, creatinine 3.73, baseline creatinine was 1, blood sugar was 260, lactic acid was 5.0, troponin was 3.170, CK was 4846. Chest x-ray showed no acute cardiopulmonary process. A COVID 19 was sent and resulted as +. Her CK peaked 37,861, her troponin peaked at 6.85 and her respiratory status deteriorated significantly to the point that she was on AVAPS NIV at 100% and she was desaturating into the low 80's for her SpO2. She was clear she did not want to be intubated and her POA confirmed this. With her failing respiratory status code status was changed to DNRCCO by the HCPOA and comfort measures were initiated with Dilaudid and versed. She was able to be made comfortable and NIV was removed and the pt comfortably at 21:37.
== END 2020-02-16 21:17 | DRG 871 ==
LOC: ED 09:32 → ICU 10:18
PROVIDERS: Internal Medicine Critical Care Medicine; Admitting Provider Internal Medicine; Emergency Provider Emergency Medicine; PCP Internal Medicine; Visit Provider Internal Medicine
DX: A41.89 Other specified sepsis (principal); R65.21 Severe sepsis with septic shock; U07.1 COVID-19; I21.A1 Myocardial infarction type 2; J96.01 Acute respiratory failure with hypoxia; J12.89 Other viral pneumonia; T79.6XXA Traumatic ischemia of muscle, initial encounter; N39.0 Urinary tract infection, site not specified; N17.9 Acute kidney failure, unspecified; E87.2 Acidosis; L03.115 Cellulitis of right lower limb; L03.116 Cellulitis of left lower limb; I95.2 Hypotension due to drugs; T50.905A Adverse effect of unspecified drugs, medicaments and biological substances, initial encounter; Y92.239 Unspecified place in hospital as the place of occurrence of the external cause; R33.9 Retention of urine, unspecified; E86.0 Dehydration; I27.20 Pulmonary hypertension, unspecified; I10 Essential (primary) hypertension; E11.65 Type 2 diabetes mellitus with hyperglycemia; I25.10 Atherosclerotic heart disease of native coronary artery without angina pectoris; W19.XXXA Unspecified fall, initial encounter; S80.212A Abrasion, left knee, initial encounter; S80.211A Abrasion, right knee, initial encounter; Y93.9 Activity, unspecified; Y92.122 Bedroom in nursing home as the place of occurrence of the external cause; Y99.9 Unspecified external cause status; K21.9 Gastro-esophageal reflux disease without esophagitis; G47.33 Obstructive sleep apnea (adult) (pediatric); F32.9 Major depressive disorder, single episode, unspecified; F41.9 Anxiety disorder, unspecified; Z23 Encounter for immunization; E66.01 Morbid (severe) obesity due to excess calories; Z68.38 Body mass index [BMI] 38.0-38.9, adult; Z79.84 Long term (current) use of oral hypoglycemic drugs; Z79.899 Other long term (current) drug therapy; Z87.891 Personal history of nicotine dependence
CPT/HCPCS: 36600; 71045; 74018; 80053; 81001; 82550; 82803; 82962; 83605; 83880; 84484; 85025; 85379; 85610; 85730; 87040; 87086; 87633; 87635; 90715; 93005; 93308; 94003; 94640; 94660; 97162; 97166; 97802; 99251; 99285; J7030; J7040; J7050; A4216; G0463; J0295; J0696; J1940; J2405; U0002